=== PATIENT | female | born 1945 | race Caucasian/White ===

== ENCOUNTER 2020-10-16 07:06 | Emergency (ER) | payer MEDICARE, SELFPAY ==
[2020-10-16 07:10] VITALS: BP 127/67; BP 135/68; PULSE 72; PULSE 80; RESP 15; TEMP 36.6; O2SAT 93; O2SAT 97; BMI 33.8
--- NOTE | 2020-10-16 07:13 | ECG_ITS ---
Test Reason : DIZZY Blood Pressure : / mmHG Vent. Rate : 073 BPM Atrial Rate : 073 BPM P-R Int : 190 ms QRS Dur : 090 ms QT Int : 390 ms P-R-T Axes : 070 -33 019 degrees QTc Int : 429 ms Normal sinus rhythm Left axis deviation Abnormal ECG When compared with ECG of 25-NOV-2003 10:55, No significant change was found Referred By: Day Alexander Electronically Signed By:Doni Easton
--- NOTE | 2020-10-16 07:13 | ED.SYNCOPE ---
HPI - Syncope General Chief Complaint: Syncope Stated Complaint: syncope Time Seen by Provider: 10/16/20 07:13 Source: patient and EMS Mode of arrival: EMS Limitations: no limitations History of Present Illness complaint: other (stood up felt dizzy had syncopal event on her bed) Onset (ago): minute(s) (just [employer]) -: second(s) Prodromal symptoms: lightheaded Context: getting out of bed and standing up Injuries sustained associated with event: none Current symptoms: other (body aches malaise anorexia as she has had for 3 days prior to event) Treatments prior to arrival: none Related Data Home Medications Medication Instructions Recorded Confirmed antiarthritic combination no.2 900 mg PO 08/15/20 mg tablet calcium carbonate 600 mg calcium 600 mg PO DAILY 08/15/20 (1,500 mg) tablet cholecalciferol (vitamin D3) 25 25 mcg PO DAILY 08/15/20 mcg (1,000 unit) capsule fluticasone propionate 50 INTRANASAL 08/15/20 mcg/actuation nasal spray,suspension omega-3 fatty acids 1,000 mg 1,000 mg PO DAILY 08/15/20 capsule pravastatin 40 mg tablet 40 mg PO DAILY 08/15/20 Allergies Allergy/AdvReac Type Severity Reaction Status Date / Time No Known Allergies Allergy Verified 08/15/20 08:27 Review of Systems Review of Systems: Constitutional : No Fever, pos Chills ENT/Mouth : No sore throat, No Rhinorrhea, No Swallowing Difficulty Eyes: No Eye Pain, No Swelling, No Redness Cardiovascular : No Chest Pain, no SOB, No Orthopnea, no Edema Respiratory : No Cough, No Sputum, No Wheezing, no dyspnea Gastrointestinal : No Nausea, No Vomiting, No Diarrhea, No abdominal Pain, No Hematochezia, No Melena Genitourinary : No Dysuria, No Urinary Frequency, No Hematuria Musculoskeletal : pos joint pain, pos Myalgias Skin : No Skin Lesions, No rash Neuro : No Weakness, No Numbness, pos Dizziness, No Headache Psych : No Anxiety/Panic, No Depression All other systems reviewed and are negative [facility] Past Medical History Attestation statement: The following information was validated with the patient. Medical History Hyperlipidemia Menopause Obesity Osteoarthritis Osteopenia of both hips Tubular adenoma of colon Urinary incontinence in female Surgical History History of cataract surgery Family History Family History Father Unknown family medical history Mother Unknown family medical history Daughter No problems noted. Son No problems noted. Social History Social History Alcohol intake: never Smoking Status: Never smoker Advance Directives: No Advance Directives Information Provided: No Physical Exam Vital Signs: Vital Signs: Last Vital Signs Temp 98 F 10/16/20 07:10 Pulse 77 10/16/20 10:45 Resp 17 10/16/20 10:45 BP 132/65 10/16/20 10:45 Pulse Ox 96 10/16/20 10:58 Body Mass Index 33.8 Appearance: Alert. Oriented X3. No acute distress. Eyes: Pupils equal, round and reactive to light. ENT: Pharynx normal. Neck: Normal inspection. Neck supple. CVS: Normal heart rate and rhythm. Pulses normal. Respiratory: No respiratory distress. Breath sounds normal. Abdomen: Soft and non-tender. Skin: Skin warm and dry. Normal skin color. Normal skin turgor. Extremities: No lower extremity edema. No calf ttp Neuro: Oriented X 3. No motor deficit. No sensory deficit. Course Course Course Narrative: ambulation trial 95% on RA was able to walk to the bathroom + ortho VS 130 to 100 will gently given another 500cc over an hour and reassess, no CP/SOB, 96% on walking repeat BP improved after fluids, able to ambulate without issue no CP/SOB to suggest PE - stable for DC has steady gait pateint requesting lunch and states she is hungry MDM - Syncope MDM Narrative Medical decision making narrative: 75 yo female with HPL c/o malaisea, myalgia, anorexia x 3 days - spent most of the time in bed went to get up today had dizziness laid in her bed and had a syncopal event, no trauma, no preceding CP/SOB no GIB symptoms, at this time will need labs, IVF gently, CXR, UA and COVID swab, I do not suspect ACS/PE given lack of CP/SOB Lab Data Result diagrams: 10/16/20 08:15 10/16/20 08:15 Labs: Lab Results 10/16/20 10/16/20 10/16/20 Range/Units 08:15 08:15 08:15 WBC 3.7 L (4.8-10.8) X10*3/uL RBC 5.01 (4.20-5.50) X10*6/uL Hgb 16.2 H (12.0-16.0) g/dl Hct 47.0 (37-47) % MCV 93.8 (80-98) fL MCH 32.3 (27.0-33.0) pg MCHC 34.5 (31.0-35.0) g/dl RDW 11.9 (11.0-16.0) % Plt Count 124 L (160-400) X10*3/uL MPV 9.8 (9.4-12.3) fL Immature Gran % (Auto) 0.3 (0.0-0.4) % Neut % (Auto) 71.8 (45-73) % Lymph % (Auto) 17.5 L (20-40) % [place] % (Auto) 10.4 (2-11) % Eos % (Auto) 0.0 (0-4) % Baso % (Auto) 0.0 (0-2) % Lymph # (Auto) 0.6 L (1.2-4.9) X10*3/uL [place] # (Auto) 0.4 (0.1-1.2) X10*3/uL Eos # (Auto) 0.0 (0.0-0.4) X10*3/uL Baso # (Auto) 0.0 (0.0-0.2) X10*3/uL Abs Immat Gran (auto) 0.01 (0.00-0.03) X10*3/uL Absolute Neuts (auto) 2.6 (2.0-8.3) X10*3/uL Absolute Nucleated RBC 0.000 (0.0-0.012) X10*3/uL Nucleated RBC % (auto) 0.0 (0.0-0.2) /100WBC Smear Tech's Comments VERIFIED Hold Blue Top SEE NOTE Sodium 141 (135-145) mmol/L Potassium 3.9 (3.3-5.1) mmol/l Chloride 103 (96-108) mmol/L Carbon Dioxide 28 (22-29) mmol/L Anion Gap 14 (12-20) BUN 11 (9-16) mg/dL Creatinine 0.87 (0.5-1.4) mg/dL Estim Creat Clear Calc 55.3 Estimated GFR > 60 Random Glucose 106 (60-115) mg/dL Lactic Acid (0.5-2.0) mmol/L Calcium 8.3 L (8.4-10.2) mg/dL Magnesium (1.6-2.6) mg/dL Total Bilirubin (0.0-1.0) mg/dL Direct Bilirubin (0.0-0.5) mg/dL AST (5-31) U/L ALT (0-31) U/L Alkaline Phosphatase (39-117) U/L Lactate Dehydrogenase 233 H (122-220) U/L Total Creatine Kinase 78 (26-140) U/L Troponin I High Sens (<3.5-17.0) ng/L Total Protein (6.5-8.0) g/dL Albumin (3.5-5.0) g/dL Lipase (8-78) U/L Urine Color Urine Appearance Urine pH (5.0-8.0) Ur Specific [place] (1.005-1.025) Urine Protein (NEG-TRACE) MG/DL Urine Glucose (UA) (NEG) MG/DL Urine Ketones (NEG) MG/DL Urine Blood (NEG) Urine Nitrite (NEG) Ur Leukocyte Esterase (NEG) Coronavirus (PCR) (Negative) Influenza Type A (PCR) (Negative) Influenza Type B (PCR) (Negative) RSV RNA Qual (PCR) (Negative) 10/16/20 10/16/20 10/16/20 Range/Units 08:15 08:15 08:17 WBC (4.8-10.8) X10*3/uL RBC (4.20-5.50) X10*6/uL Hgb (12.0-16.0) g/dl Hct (37-47) % MCV (80-98) fL MCH (27.0-33.0) pg MCHC (31.0-35.0) g/dl RDW (11.0-16.0) % Plt Count (160-400) X10*3/uL MPV (9.4-12.3) fL Immature Gran % (Auto) (0.0-0.4) % Neut % (Auto) (45-73) % Lymph % (Auto) (20-40) % [place] % (Auto) (2-11) % Eos % (Auto) (0-4) % Baso % (Auto) (0-2) % Lymph # (Auto) (1.2-4.9) X10*3/uL [place] # (Auto) (0.1-1.2) X10*3/uL Eos # (Auto) (0.0-0.4) X10*3/uL Baso # (Auto) (0.0-0.2) X10*3/uL Abs Immat Gran (auto) (0.00-0.03) X10*3/uL Absolute Neuts (auto) (2.0-8.3) X10*3/uL Absolute Nucleated RBC (0.0-0.012) X10*3/uL Nucleated RBC % (auto) (0.0-0.2) /100WBC Smear Tech's Comments Hold Blue Top Sodium (135-145) mmol/L Potassium (3.3-5.1) mmol/l Chloride (96-108) mmol/L Carbon Dioxide (22-29) mmol/L Anion Gap (12-20) BUN (9-16) mg/dL Creatinine (0.5-1.4) mg/dL Estim Creat Clear Calc Estimated GFR Random Glucose (60-115) mg/dL Lactic Acid 0.9 (0.5-2.0) mmol/L Calcium 8.3 L (8.4-10.2) mg/dL Magnesium 2.1 (1.6-2.6) mg/dL Total Bilirubin 0.3 (0.0-1.0) mg/dL Direct Bilirubin 0.2 (0.0-0.5) mg/dL AST 27 (5-31) U/L ALT 27 (0-31) U/L Alkaline Phosphatase 72 (39-117) U/L Lactate Dehydrogenase (122-220) U/L Total Creatine Kinase (26-140) U/L Troponin I High Sens 3.9 (<3.5-17.0) ng/L Total Protein 6.4 L (6.5-8.0) g/dL Albumin 3.9 (3.5-5.0) g/dL Lipase 28 (8-78) U/L Urine Color Urine Appearance Urine pH (5.0-8.0) Ur Specific [place] (1.005-1.025) Urine Protein (NEG-TRACE) MG/DL Urine Glucose (UA) (NEG) MG/DL Urine Ketones (NEG) MG/DL Urine Blood (NEG) Urine Nitrite (NEG) Ur Leukocyte Esterase (NEG) Coronavirus (PCR) (Negative) Influenza Type A (PCR) (Negative) Influenza Type B (PCR) (Negative) RSV RNA Qual (PCR) (Negative) 10/16/20 10/16/20 Range/Units 09:15 11:22 WBC (4.8-10.8) X10*3/uL RBC (4.20-5.50) X10*6/uL Hgb (12.0-16.0) g/dl Hct (37-47) % MCV (80-98) fL MCH (27.0-33.0) pg MCHC (31.0-35.0) g/dl RDW (11.0-16.0) % Plt Count (160-400) X10*3/uL MPV (9.4-12.3) fL Immature Gran % (Auto) (0.0-0.4) % Neut % (Auto) (45-73) % Lymph % (Auto) (20-40) % [place] % (Auto) (2-11) % Eos % (Auto) (0-4) % Baso % (Auto) (0-2) % Lymph # (Auto) (1.2-4.9) X10*3/uL [place] # (Auto) (0.1-1.2) X10*3/uL Eos # (Auto) (0.0-0.4) X10*3/uL Baso # (Auto) (0.0-0.2) X10*3/uL Abs Immat Gran (auto) (0.00-0.03) X10*3/uL Absolute Neuts (auto) (2.0-8.3) X10*3/uL Absolute Nucleated RBC (0.0-0.012) X10*3/uL Nucleated RBC % (auto) (0.0-0.2) /100WBC Smear Tech's Comments Hold Blue Top Sodium (135-145) mmol/L Potassium (3.3-5.1) mmol/l Chloride (96-108) mmol/L Carbon Dioxide (22-29) mmol/L Anion Gap (12-20) BUN (9-16) mg/dL Creatinine (0.5-1.4) mg/dL Estim Creat Clear Calc Estimated GFR Random Glucose (60-115) mg/dL Lactic Acid (0.5-2.0) mmol/L Calcium (8.4-10.2) mg/dL Magnesium (1.6-2.6) mg/dL Total Bilirubin (0.0-1.0) mg/dL Direct Bilirubin (0.0-0.5) mg/dL AST (5-31) U/L ALT (0-31) U/L Alkaline Phosphatase (39-117) U/L Lactate Dehydrogenase (122-220) U/L Total Creatine Kinase (26-140) U/L Troponin I High Sens (<3.5-17.0) ng/L Total Protein (6.5-8.0) g/dL Albumin (3.5-5.0) g/dL Lipase (8-78) U/L Urine Color YELLOW Urine Appearance CLEAR Urine pH 6.0 (5.0-8.0) Ur Specific [place] 1.020 (1.005-1.025) Urine Protein NEG (NEG-TRACE) MG/DL Urine Glucose (UA) NEG (NEG) MG/DL Urine Ketones 15 (NEG) MG/DL Urine Blood NEG (NEG) Urine Nitrite NEG (NEG) Ur Leukocyte Esterase NEG (NEG) Coronavirus (PCR) POSITIVE A (Negative) Influenza Type A (PCR) NEGATIVE (Negative) Influenza Type B (PCR) NEGATIVE (Negative) RSV RNA Qual (PCR) NEGATIVE (Negative) ECG Data Attestation: I personally reviewed and interpreted this ECG as follows: ECG interpretation date: 10/16/20 ECG interpretation time: 07:29 Interpretation: Rate: 73 Rhythm: NSR [place]: left Normal P waves. Normal G[place]VAR[place]. Normal QRS complex. ST T wave : normal no JOSE qTC: normal prior studies: no acute ischemia The study has been interpreted contemporaneously by me. . Discharge Plan Discharge Clinical Impression: Syncope due to orthostatic hypotension, COVID-19 Patient Disposition: Home, Self-Care Instructions: Hypotension (ED), COVID-19 (Coronavirus Disease 2019) (ED) Additional Instructions: return to ED for any worsening symptoms or concerns you have to eat and drink fluids - take tylenol and motrin as needed for fevers and body aches Prescriptions: No Action pravastatin 40 mg tablet 40 mg PO DAILY RF: 0 fluticasone propionate 50 mcg/actuation spray,suspension intranasal RF: 0 omega-3 fatty acids [Fish Oil Concentrate] 1,000 mg capsule 1,000 mg PO DAILY RF: 0 glucosamine-chondroitin 900 mg tablet PO RF: 0 calcium carbonate [Calcium 600] 600 mg calcium (1,500 mg) tablet 600 mg PO DAILY RF: 0 cholecalciferol (vitamin D3) 25 mcg (1,000 unit) capsule 25 mcg PO DAILY RF: 0
--- NOTE | 2020-10-16 07:14 | XR_ITS ---
EXAMINATION: XR CHEST CLINICAL INFORMATION: Weakness COMPARISON: None TECHNIQUE: Frontal view of the chest was obtained. FINDINGS: Rotated positioning. There is prominence of the cardiac and mediastinal silhouette, likely related to positioning. Patchy airspace opacities in bilateral lower lungs, from atelectasis or infiltrate. Possible trace left pleural effusion. No pulmonary edema or pneumothorax. No acute osseous abnormality. XR/XR chest 1V IMPRESSION: Bibasilar airspace opacities which could present atelectasis or infiltrate. Possible trace left pleural effusion.
[2020-10-16 08:26] LABS: Hemoglobin 16.2 g/dl (12.0-16.0); Imm Gran Abs Auto 0.01 X10*3/uL (0.00-0.03); Imm Gran Pct Auto 0.3 % (0.0-0.4); Lymphocytes Absolute Auto 0.6 X10*3/uL (1.2-4.9); Lymphocytes Percent Auto 17.5 % (20-40); MANUAL DIFF FLAG SCAN; Mean Corpuscular HGB Conc 34.5 g/dl (31.0-35.0); Mean Corpuscular Hemoglobin 32.3 pg (27.0-33.0); Mean Corpuscular Volume 93.8 fL (80-98); Mean Platelet Volume 9.8 fL (9.4-12.3); Monocytes Absolute Auto 0.4 X10*3/uL (0.1-1.2); Monocytes Percent Auto 10.4 % (2-11); Neutrophils Absolute Auto 2.6 X10*3/uL (2.0-8.3); Neutrophils Percent Auto 71.8 % (45-73); Platelet Count 124 X10*3/uL (160-400); Red Blood Count 5.01 X10*6/uL (4.20-5.50); Red Cell Distribution Width 11.9 % (11.0-16.0); SCAN SMEAR FLAG 1; White Blood Count 3.7 X10*3/uL (4.8-10.8)
--- NOTE | 2020-10-16 08:31 | CT_ITS ---
EXAMINATION: CT CHEST WITHOUT CONTRAST CLINICAL INFORMATION: Syncope, malaise, evaluate for fevers. COMPARISON: None TECHNIQUE: Multidetector volumetric CT imaging of the chest was done. Axial MIP volume rendering provided. Sagittal and coronal reformatted images were obtained. This CT examination was performed using dose optimization techniques as appropriate, variously including the following: *Automated exposure control *Adjustment of mA and/or kV according to patient size (this includes techniques or standardized protocols for targeted exams where dose is matched to indication/reason for exam; i.e. extremities or head) *Use of iterative reconstruction technique DLP: 270 mGy-cm FINDINGS: LUNGS: 2 mm calcified nodule right upper lobe image 174 series 5. Airspace opacity in the medial aspect of the right upper lobe, with peribronchial thickening. Patchy airspace opacity in the peripheral aspect of right upper lobe, for example image [id number] series 5. Linear and patchy airspace opacities in the bilateral lower lobes. There are some peripheral subpleural ground-glass opacities in bilateral lower lobes. Airspace and ground-glass opacities in the inferior lingula, left lower lobe. Multiple foci of ground-glass opacities in the left upper lobe. MEDIASTINUM: No lymphadenopathy seen in the mediastinum or marco. Normal caliber aorta. Normal heart size. No pericardial effusion. PLEURA: There is no pleural effusion. No pleural mass or thickening. AXILLA: No lymphadenopathy. UPPER ABDOMEN: Unremarkable. OSSEOUS STRUCTURES: Thoracic spine degenerative changes. No acute or suspicious osseous abnormality. CT/CT chest wo con IMPRESSION: Multifocal airspace and ground-glass opacities in bilateral hemithoraces, as detailed above. These findings may reflect infectious or inflammatory process. Recommend followup imaging posttreatment to ensure resolution.
[2020-10-16 08:43] LABS: Lactic Acid 0.9 mmol/L (0.5-2.0)
[2020-10-16] MEDS: 0.9 % Sodium Chloride 500 ML IV ×2 (08:48→14:05)
[2020-10-16] MEDS: ondansetron HCL 4 MG/2 ML VIAL IVPUSH (08:48)
[2020-10-16 08:50] LABS: Anion Gap 14 (12-20); Blood Urea Nitrogen 11 mg/dL (9-16); Calcium 8.3 mg/dL (8.4-10.2); Carbon Dioxide 28 mmol/L (22-29); Chloride 103 mmol/L (96-108); Creatinine Clr Calc Pharmacy 55.3; Estimated Glomerular Filt Rate > 60; Glucose Random 106 mg/dL (60-115); Lactate Dehydrogenase 233 U/L (122-220); Potassium 3.9 mmol/l (3.3-5.1); Sodium 141 mmol/L (135-145)
[2020-10-16 08:50] LABS: Alanine Aminotransferase 27 U/L (0-31); Albumin Level 3.9 g/dL (3.5-5.0); Alkaline Phosphatase 72 U/L (39-117); Aspartate Amino Transferase 27 U/L (5-31); Bilirubin Direct 0.2 mg/dL (0.0-0.5); Bilirubin Total 0.3 mg/dL (0.0-1.0); Calcium 8.3 mg/dL (8.4-10.2); Lipase 28 U/L (8-78); Magnesium 2.1 mg/dL (1.6-2.6); Total Protein 6.4 g/dL (6.5-8.0)
[2020-10-16 09:00] LABS: SLIDE REVIEW VERIFIED
[2020-10-16 09:16] VITALS: BP 123/68; PULSE 68; RESP 16; O2SAT 93
[2020-10-16 09:35] LABS: Troponin-I High Sensitivity 3.9 ng/L (<3.5-17.0)
[2020-10-16 10:45] VITALS: BP 132/65; PULSE 77; RESP 17; O2SAT 933
[2020-10-16 10:50] LABS: Influenza A PCR NEGATIVE (Negative); Influenza B PCR NEGATIVE (Negative); Resp Syncy Virus RNA Qual PCR NEGATIVE (Negative); SARS COV2 PCR INHOUSE POSITIVE (Negative)
[2020-10-16 10:58] VITALS: O2SAT 96
[2020-10-16 11:46] LABS: Glucose Urine UA NEG (NEG); Leukocyte Esterase Urine NEG (NEG); Nitrite Urine NEG (NEG); Urine Blood NEG (NEG); Urine Ketones 15 MG/DL (NEG); Urine Protein NEG (NEG-TRACE)
[2020-10-16 11:51] LABS: Appearance Urine CLEAR; Color Urine YELLOW
[2020-10-16] MEDS: Acetaminophen 325 MG TABLET 650 MG PO (14:04)
[2020-10-16 14:06] VITALS: BP 111/75; PULSE 77; RESP 16; O2SAT 95
== END 2020-10-16 14:42 | disposition home or self-care (01) ==
PROVIDERS: Emergency Provider Emergency Medicine; PCP Internal Medicine
DX: U07.1 COVID-19 (principal); I95.1 Orthostatic hypotension
CPT/HCPCS: 0241U; 36415; 71045; 71250; 80048; 80076; 81003; 82310; 82550; 83605; 83615; 83690; 83735; 84484; 85025; 93005; 96361; 96374; 99284; J2405

== ENCOUNTER 2020-10-23 07:37 | Emergency (ER) | payer MEDICARE, SELFPAY ==
[2020-10-23 07:44] VITALS: BP 119/41; PULSE 81; RESP 16; TEMP 36.9; O2SAT 96; BMI 33.8
--- NOTE | 2020-10-23 07:53 | ECG_ITS ---
Test Reason : HEADACHE,WEAKNESS Blood Pressure : / mmHG Vent. Rate : 078 BPM Atrial Rate : 078 BPM P-R Int : 184 ms QRS Dur : 084 ms QT Int : 374 ms P-R-T Axes : 037 -07 019 degrees QTc Int : 426 ms Normal sinus rhythm Cannot rule out Anterior infarct , age undetermined Abnormal ECG When compared with ECG of 16-OCT-2020 07:25, No significant change was found Referred By: Day Alexander Electronically Signed By:ÓSCAR COTTRELL MD
--- NOTE | 2020-10-23 07:53 | XR_ITS ---
EXAMINATION: XR CHEST CLINICAL INFORMATION: Weakness. Covid positive. COMPARISON: October 16, 2020 TECHNIQUE: AP portable view of the chest was obtained. FINDINGS: There are small patchy regions of disease seen within the left upper lobe and right upper and lower lung. No pneumothorax or significant pleural effusion. Heart and upper limits of normal in size. No evidence of pulmonary edema. The regions of disease are more prominent than on study of October 16, 2020. There is elevation of the left hemidiaphragm. XR/XR chest 1V IMPRESSION: Progression in regions of patchy disease bilaterally since previous examination.
--- NOTE | 2020-10-23 07:54 | ED_ITS ---
HPI - Weakness General Chief complaint: Headache Stated complaint: HEADACHE COVID Time Seen by Provider: 10/23/20 07:47 Source: patient, EMS and old records reviewed Mode of arrival: EMS Limitations: no limitations History of Present Illness HPI Narrative: seen here on 10/16 for syncope found to be orthostatic likely due to decreased PO from COVID - was not hypoxic, labs stable, responded to hydration - since being at home has poor PO intake due to lack of taste and smell, c/o headache x 3 weeks which is her main complaint, feels dizzy and weak, her is hospitalized with COVID as well MD Complaint: generalized weakness and lack of energy Onset (ago): week(s) Duration: constant Location: generalized Migration: none Severity: severe Relieving factors: none Exacerbating factors: none Context: recent illness (dx with COVID on 10/16) Associated symptoms: headaches, loss of appetite and myalgias Related Data Home Medications Medication Instructions Recorded Confirmed antiarthritic combination no.2 900 mg PO 08/15/20 mg tablet calcium carbonate 600 mg calcium 600 mg PO DAILY 08/15/20 (1,500 mg) tablet cholecalciferol (vitamin D3) 25 25 mcg PO DAILY 08/15/20 mcg (1,000 unit) capsule fluticasone propionate 50 INTRANASAL 08/15/20 mcg/actuation nasal spray,suspension omega-3 fatty acids 1,000 mg 1,000 mg PO DAILY 08/15/20 capsule pravastatin 40 mg tablet 40 mg PO DAILY 08/15/20 Previous Rx's Medication Instructions Recorded azithromycin See Rx Instructions .ROUTE 10/23/20 .COMPLEX #6 tab hydrocodone-homatropine 5 ml PO Q6H PRN #60 ml 10/23/20 Allergies Allergy/AdvReac Type Severity Reaction Status Date / Time No Known Allergies Allergy Verified 08/15/20 08:27 Review of Systems Review of Systems: Constitutional : No Fever, No Chills, pos Fatigue ENT/Mouth : No sore throat, No Rhinorrhea Eyes: No Eye Pain, No Swelling, No Redness Cardiovascular : No Chest Pain, No SOB, pos Dyspnea on Exertion Respiratory : No Cough, No Sputum Gastrointestinal : No Nausea, No Vomiting, No Diarrhea, No abdominal Pain Genitourinary : No Dysuria, No Urinary Frequency, No Hematuria, Musculoskeletal : No joint pain, pos Myalgias, No Joint Swelling Skin : No Skin Lesions, No rash Neuro : pos Weakness, No Numbness, No Dizziness, positive Headache Psych : No Anxiety/Panic, No Depression Heme/Lymph: No Bruising, No Bleeding,No Lymphadenopathy Endocrine : No Polyuria, No Polydipsia All other systems reviewed and are negative [facility] Past Medical History Attestation statement: The following information was validated with the patient. Source: old records reviewed Medical History Hyperlipidemia Menopause Obesity Osteoarthritis Osteopenia of both hips Tubular adenoma of colon Urinary incontinence in female Surgical History History of cataract surgery Family History Family History Father Unknown family medical history Mother Unknown family medical history Daughter No problems noted. Son No problems noted. Social History Social History Alcohol intake: never Smoking Status: Never smoker Advance Directives: No Advance Directives Information Provided: No Physical Exam Vital Signs: Vital Signs: Last Vital Signs Temp 98.5 F 10/23/20 07:44 Pulse 74 10/23/20 09:47 Resp 16 10/23/20 07:44 BP 117/74 10/23/20 09:47 Pulse Ox 95 10/23/20 09:42 Body Mass Index 33.8 Appearance: Alert. Oriented X3. No acute distress. Eyes: Pupils equal, round and reactive to light. ENT: Pharynx mild dry MMM Neck: Normal inspection. Neck supple. no meningeal signs CVS: Normal heart rate and rhythm. Pulses normal. Respiratory: No respiratory distress. Breath sounds normal. Abdomen: Soft and non-tender. Skin: Skin warm and dry. Normal skin color. Normal skin turgor. Extremities: No lower extremity edema. No calf ttp Neuro: Oriented X 3. No motor deficit. No sensory deficit. Course Course Course Narrative: no EKG changes and no CP/SOB 6.6 trop not in ischemic range last was 3.9 doubt ACS, CT head negative, negative ortho VS, no dehydration, no admission needs at this time, does not require O2 MDM - Weakness MDM Narrative Medical decision making narrative: 75 yo female with known COVID 19 dx 10/16 here with weakness, lack of appetite due to loss of taste and smell - c/o headache x 3 weeks no AC therapy, no meningeal signs will obtain labs, CT head for mass, IV morphine for pain, no hypoxia or resp distress, dispo per results and findings Lab Data Result diagrams: 10/23/20 08:43 10/23/20 08:43 Labs: Lab Results 10/23/20 10/23/20 10/23/20 Range/Units 08:43 08:43 08:43 WBC 3.8 L (4.8-10.8) X10*3/uL RBC 5.27 (4.20-5.50) X10*6/uL Hgb 16.6 H (12.0-16.0) g/dl Hct 48.5 H (37-47) % MCV 92.0 (80-98) fL MCH 31.5 (27.0-33.0) pg MCHC 34.2 (31.0-35.0) g/dl RDW 12.0 (11.0-16.0) % Plt Count 190 D (160-400) X10*3/uL MPV 9.9 (9.4-12.3) fL Immature Gran % (Auto) 0.5 H (0.0-0.4) % Neut % (Auto) 73.9 H (45-73) % Lymph % (Auto) 17.2 L (20-40) % [place] % (Auto) 8.1 (2-11) % Eos % (Auto) 0.0 (0-4) % Baso % (Auto) 0.3 (0-2) % Lymph # (Auto) 0.7 L (1.2-4.9) X10*3/uL [place] # (Auto) 0.3 (0.1-1.2) X10*3/uL Eos # (Auto) 0.0 (0.0-0.4) X10*3/uL Baso # (Auto) 0.0 (0.0-0.2) X10*3/uL Abs Immat Gran (auto) 0.02 (0.00-0.03) X10*3/uL Absolute Neuts (auto) 2.8 (2.0-8.3) X10*3/uL Absolute Nucleated RBC 0.000 (0.0-0.012) X10*3/uL Nucleated RBC % (auto) 0.0 (0.0-0.2) /100WBC Smear Tech's Comments VERIFIED PT 13.1 H (10.8-13.0) SEC INR 1.1 (0.9-1.1) APTT 27.1 (24.1-38.0) SEC Sodium 139 (135-145) mmol/L Potassium 3.8 (3.3-5.1) mmol/l Chloride 103 (96-108) mmol/L Carbon Dioxide 28 (22-29) mmol/L Anion Gap 12 (12-20) BUN 11 (9-16) mg/dL Creatinine 0.76 (0.5-1.4) mg/dL Estim Creat Clear Calc 63.2 Estimated GFR > 60 Random Glucose 106 (60-115) mg/dL Lactic Acid (0.5-2.0) mmol/L Calcium 8.5 (8.4-10.2) mg/dL Magnesium (1.6-2.6) mg/dL Total Bilirubin (0.0-1.0) mg/dL Direct Bilirubin (0.0-0.5) mg/dL AST (5-31) U/L ALT (0-31) U/L Alkaline Phosphatase (39-117) U/L Lactate Dehydrogenase (122-220) U/L Total Creatine Kinase 49 D (26-140) U/L Troponin I High Sens (<3.5-17.0) ng/L Total Protein (6.5-8.0) g/dL Albumin (3.5-5.0) g/dL Lipase (8-78) U/L Procalcitonin ng/mL 10/23/20 10/23/20 10/23/20 Range/Units 08:43 08:43 08:43 WBC (4.8-10.8) X10*3/uL RBC (4.20-5.50) X10*6/uL Hgb (12.0-16.0) g/dl Hct (37-47) % MCV (80-98) fL MCH (27.0-33.0) pg MCHC (31.0-35.0) g/dl RDW (11.0-16.0) % Plt Count (160-400) X10*3/uL MPV (9.4-12.3) fL Immature Gran % (Auto) (0.0-0.4) % Neut % (Auto) (45-73) % Lymph % (Auto) (20-40) % [place] % (Auto) (2-11) % Eos % (Auto) (0-4) % Baso % (Auto) (0-2) % Lymph # (Auto) (1.2-4.9) X10*3/uL [place] # (Auto) (0.1-1.2) X10*3/uL Eos # (Auto) (0.0-0.4) X10*3/uL Baso # (Auto) (0.0-0.2) X10*3/uL Abs Immat Gran (auto) (0.00-0.03) X10*3/uL Absolute Neuts (auto) (2.0-8.3) X10*3/uL Absolute Nucleated RBC (0.0-0.012) X10*3/uL Nucleated RBC % (auto) (0.0-0.2) /100WBC Smear Tech's Comments PT (10.8-13.0) SEC INR (0.9-1.1) APTT (24.1-38.0) SEC Sodium (135-145) mmol/L Potassium (3.3-5.1) mmol/l Chloride (96-108) mmol/L Carbon Dioxide (22-29) mmol/L Anion Gap (12-20) BUN (9-16) mg/dL Creatinine (0.5-1.4) mg/dL Estim Creat Clear Calc Estimated GFR Random Glucose (60-115) mg/dL Lactic Acid 1.0 (0.5-2.0) mmol/L Calcium (8.4-10.2) mg/dL Magnesium 2.1 (1.6-2.6) mg/dL Total Bilirubin 0.6 (0.0-1.0) mg/dL Direct Bilirubin 0.3 (0.0-0.5) mg/dL AST 39 H D (5-31) U/L ALT 38 H (0-31) U/L Alkaline Phosphatase 70 (39-117) U/L Lactate Dehydrogenase 377 H (122-220) U/L Total Creatine Kinase (26-140) U/L Troponin I High Sens 6.6 D (<3.5-17.0) ng/L Total Protein 6.6 (6.5-8.0) g/dL Albumin 3.9 (3.5-5.0) g/dL Lipase 39 (8-78) U/L Procalcitonin ng/mL 10/23/20 Range/Units 08:43 WBC (4.8-10.8) X10*3/uL RBC (4.20-5.50) X10*6/uL Hgb (12.0-16.0) g/dl Hct (37-47) % MCV (80-98) fL MCH (27.0-33.0) pg MCHC (31.0-35.0) g/dl RDW (11.0-16.0) % Plt Count (160-400) X10*3/uL MPV (9.4-12.3) fL Immature Gran % (Auto) (0.0-0.4) % Neut % (Auto) (45-73) % Lymph % (Auto) (20-40) % [place] % (Auto) (2-11) % Eos % (Auto) (0-4) % Baso % (Auto) (0-2) % Lymph # (Auto) (1.2-4.9) X10*3/uL [place] # (Auto) (0.1-1.2) X10*3/uL Eos # (Auto) (0.0-0.4) X10*3/uL Baso # (Auto) (0.0-0.2) X10*3/uL Abs Immat Gran (auto) (0.00-0.03) X10*3/uL Absolute Neuts (auto) (2.0-8.3) X10*3/uL Absolute Nucleated RBC (0.0-0.012) X10*3/uL Nucleated RBC % (auto) (0.0-0.2) /100WBC Smear Tech's Comments PT (10.8-13.0) SEC INR (0.9-1.1) APTT (24.1-38.0) SEC Sodium (135-145) mmol/L Potassium (3.3-5.1) mmol/l Chloride (96-108) mmol/L Carbon Dioxide (22-29) mmol/L Anion Gap (12-20) BUN (9-16) mg/dL Creatinine (0.5-1.4) mg/dL Estim Creat Clear Calc Estimated GFR Random Glucose (60-115) mg/dL Lactic Acid (0.5-2.0) mmol/L Calcium (8.4-10.2) mg/dL Magnesium (1.6-2.6) mg/dL Total Bilirubin (0.0-1.0) mg/dL Direct Bilirubin (0.0-0.5) mg/dL AST (5-31) U/L ALT (0-31) U/L Alkaline Phosphatase (39-117) U/L Lactate Dehydrogenase (122-220) U/L Total Creatine Kinase (26-140) U/L Troponin I High Sens (<3.5-17.0) ng/L Total Protein (6.5-8.0) g/dL Albumin (3.5-5.0) g/dL Lipase (8-78) U/L Procalcitonin 0.09 ng/mL ECG Data Attestation: I personally reviewed and interpreted this ECG as follows: ECG interpretation date: 10/23/20 ECG interpretation time: 08:14 Interpretation: Rate: 78 Rhythm: NSR [place]: left Normal P waves. Normal GUEVARA. Normal QRS complex. poor R wave progression ST T wave : normal no JOSE qTC: normal prior studies: no acute ischemia The study has been interpreted contemporaneously by me. . Discharge Plan Discharge Clinical Impression: COVID-19, Headache Patient Disposition: Home, Self-Care Instructions: Acute Headache (ED), COVID-19 (Coronavirus Disease 2019) (ED) Additional Instructions: return to ED for any worsening symptoms or concerns, your kidney function is fine you are not dehydrated. CT scan incidental findings which are not causing your symptoms but they do require you to follow up with your PCP meningioma - benign small 1.5cm mass R parotid gland - right cheek 2.3cm will need outpatient CT neck with your PCP that has contrast Prescriptions: New azithromycin 500 mg tablet See Rx Instructions .ROUTE .COMPLEX Qty: 6 RF: 0 hydrocodone-homatropine 5-1.5 mg/5 mL (5 mL) syrup 5 ml PO Q6H PRN (Reason: cough) Qty: 60 RF: 0 No Action pravastatin 40 mg tablet 40 mg PO DAILY RF: 0 fluticasone propionate 50 mcg/actuation spray,suspension intranasal RF: 0 omega-3 fatty acids [Fish Oil Concentrate] 1,000 mg capsule 1,000 mg PO DAILY RF: 0 glucosamine-chondroitin 900 mg tablet PO RF: 0 calcium carbonate [Calcium 600] 600 mg calcium (1,500 mg) tablet 600 mg PO DAILY RF: 0 cholecalciferol (vitamin D3) 25 mcg (1,000 unit) capsule 25 mcg PO DAILY RF: 0 Referrals: Radha Melvin MD [Primary Care Provider] - 1 week (follow up CT scan findings)
--- NOTE | 2020-10-23 08:03 | CT_ITS ---
CT HEAD WITHOUT IV CONTRAST CLINICAL INFORMATION: Headaches. COMPARISON: None TECHNIQUE: Contiguous axial imaging was performed from the skull base to vertex without intravenous administration of contrast. This CT examination was performed using dose optimization techniques as appropriate, variously including the following: *Automated exposure control *Adjustment of mA and/or kV according to patient size (this includes techniques or standardized protocols for targeted exams where dose is matched to indication/reason for exam; i.e. extremities or head) *Use of iterative reconstruction technique FINDINGS: There is a 1.5 cm calcified extra-axial nodule along the anterior left parasagittal frontal convexity that is most compatible with a meningioma. There is a smaller partially calcified nodule along the left tentorial leaflet, also suggestive of a small meningioma. There is no intracranial hemorrhage, hydrocephalus, extra-axial surface collection, midline shift, or other herniation pattern. [place] to white matter differentiation is diffusely maintained without evidence of an evolved acute territorial infarct. The basilar cisterns are preserved. There is a partially imaged well marginated 2.3 cm mass within the posterior aspect of the right parotid gland that can be further assessed with a contrast-enhanced CT of the neck. CT/CT head/brain wo con IMPRESSION: - No acute intracranial abnormality. - There is a 1.5 cm partially calcified meningioma along the anterior left frontal parasagittal convexity. There is a smaller partially calcified nodule along the left tentorial leaflet, also suggestive of a small meningioma. - There is a partially imaged well marginated 2.3 cm mass within the posterior aspect of the right parotid gland that can be further assessed with a contrast-enhanced CT of the neck.
[2020-10-23] MEDS: 0.9 % Sodium Chloride 500 ML IV (08:41)
[2020-10-23] MEDS: ondansetron HCL 4 MG/2 ML VIAL IVPUSH (08:48)
[2020-10-23] MEDS: Morphine Sulfate 2 MG/ML CARTRIDGE IVPUSH (08:48)
[2020-10-23 08:54] LABS: Basophils Percent Auto 0.3 % (0-2); Hematocrit 48.5 % (37-47); Hemoglobin 16.6 g/dl (12.0-16.0); Imm Gran Abs Auto 0.02 X10*3/uL (0.00-0.03); Imm Gran Pct Auto 0.5 % (0.0-0.4); Lymphocytes Absolute Auto 0.7 X10*3/uL (1.2-4.9); Lymphocytes Percent Auto 17.2 % (20-40); Mean Corpuscular HGB Conc 34.2 g/dl (31.0-35.0); Mean Corpuscular Hemoglobin 31.5 pg (27.0-33.0); Mean Platelet Volume 9.9 fL (9.4-12.3); Monocytes Absolute Auto 0.3 X10*3/uL (0.1-1.2); Monocytes Percent Auto 8.1 % (2-11); Neutrophils Absolute Auto 2.8 X10*3/uL (2.0-8.3); Neutrophils Percent Auto 73.9 % (45-73); Platelet Count 190 X10*3/uL (160-400); Red Blood Count 5.27 X10*6/uL (4.20-5.50); SCAN SMEAR FLAG 1; White Blood Count 3.8 X10*3/uL (4.8-10.8)
[2020-10-23 08:57] LABS: INTERNATIONAL NORM RATIO 1.1 (0.9-1.1); Prothrombin Time 13.1 SEC (10.8-13.0)
[2020-10-23 09:00] LABS: Partial Thromboplastin Time 27.1 SEC (24.1-38.0)
[2020-10-23 09:13] LABS: Alanine Aminotransferase 38 U/L (0-31); Albumin Level 3.9 g/dL (3.5-5.0); Alkaline Phosphatase 70 U/L (39-117); Aspartate Amino Transferase 39 U/L (5-31); Bilirubin Direct 0.3 mg/dL (0.0-0.5); Bilirubin Total 0.6 mg/dL (0.0-1.0); Lactate Dehydrogenase 377 U/L (122-220); Lipase 39 U/L (8-78); Magnesium 2.1 mg/dL (1.6-2.6); Total Protein 6.6 g/dL (6.5-8.0)
[2020-10-23 09:14] LABS: Anion Gap 12 (12-20); Blood Urea Nitrogen 11 mg/dL (9-16); Calcium 8.5 mg/dL (8.4-10.2); Carbon Dioxide 28 mmol/L (22-29); Chloride 103 mmol/L (96-108); Creatinine Clr Calc Pharmacy 63.2; Estimated Glomerular Filt Rate > 60; Glucose Random 106 mg/dL (60-115); Potassium 3.8 mmol/l (3.3-5.1); Sodium 139 mmol/L (135-145)
[2020-10-23 09:20] LABS: MANUAL DIFF FLAG SCAN; Troponin-I High Sensitivity 6.6 ng/L (<3.5-17.0)
[2020-10-23 09:21] LABS: SLIDE REVIEW VERIFIED
[2020-10-23 09:32] LABS: Procalcitonin 0.09 ng/mL
[2020-10-23 09:42] VITALS: BP 120/75; PULSE 70; O2SAT 95
[2020-10-23 09:45] VITALS: BP 122/74; BP 126/79; PULSE 70; PULSE 80
[2020-10-23 09:47] VITALS: BP 117/74; PULSE 74
[2020-10-23 10:14] LABS: Glucose Urine UA NEG (NEG); Leukocyte Esterase Urine TRACE (NEG); Nitrite Urine NEG (NEG); Urine Blood NEG (NEG); Urine Ketones 15 MG/DL (NEG); Urine Protein TRACE MG/DL (NEG-TRACE)
[2020-10-23 10:15] LABS: Appearance Urine CLOUDY; Color Urine YELLOW
[2020-10-23 10:25] LABS: Bacteria Urine 2+ /LPF; RBC Urine 0 /HPF (0); Squamous Epithelial Cell Urine 3+ /LPF
[2020-10-23 10:26] LABS: Ferritin 2641 ng/mL (10-250)
[2020-10-23 10:26] LABS: Mucus Urine 2+ /LPF
[2020-10-23 12:27] VITALS: BP 126/49; PULSE 98; RESP 18; O2SAT 98
--- NOTE | 2020-10-23 12:27 | PC.NURSE ---
PULSE OXIMETRY PERFORMED, ABOUT 200 FEET. HR: 108, O2% 96. NO SUPPLEMENTAL O2
== END 2020-10-23 12:31 | disposition home or self-care (01) ==
PROVIDERS: Emergency Provider Emergency Medicine; PCP Internal Medicine
DX: U07.1 COVID-19 (principal); R51.9 Headache, unspecified
CPT/HCPCS: 36415; 70450; 71045; 80048; 80076; 81001; 82550; 82728; 83605; 83615; 83690; 83735; 84145; 84484; 85025; 85610; 85730; 87040; 87086; 93005; 96361; 96374; 96375; 99284; J2270; J2405

== ENCOUNTER 2020-11-21 09:15 | Outpatient (REF) | payer MEDICARE, SELFPAY ==
--- NOTE | 2020-11-21 | MM_ITS ---
EXAMINATION: MM SCREENING DIGITAL BREAST TOMOSYNTHESIS, BILATERAL CLINICAL INFORMATION: Screening. Asymptomatic. The lifetime risk of breast cancer based on the Tyrer-Cuzick Model is 2.3%. COMPARISON: Mammography: November 16, 2019 and studies dating back to July 21, 2012 TECHNIQUE: Digital breast tomosynthesis is performed in both the craniocaudal and mediolateral oblique views along with computer-aided detection (CAD). Synthesized 2D images are generated from the tomosynthesis. FINDINGS: The breasts are almost entirely fatty (ACR BI-RADS breast composition Category a). There are no significant masses, abnormal calcifications, or other abnormalities. MM/MM tomosynthesis screening BI IMPRESSION: There are no significant changes from prior study. ASSESSMENT: BI-RADS 1: Negative RECOMMENDATION: Routine annual mammography screening. This patient's information was entered into a reminder system with a target due date for their next mammogram.
== END 2020-11-21 09:16 | disposition home or self-care (01) ==
LOC: HO.MAMMO 09:15
PROVIDERS: Visit Provider Internal Medicine
DX: Z12.31 Encounter for screening mammogram for malignant neoplasm of breast (principal)
CPT/HCPCS: 77063; 77067

== ENCOUNTER → 2021-01-04 10:40 | Outpatient (BNVA) | payer MEDICARE, SELFPAY | PROVIDERS: PCP Internal Medicine; Visit Provider Student in an Organized Health Care Education/Training Program | DX: M47.896 Other spondylosis, lumbar region (principal); M54.5 Low back pain; G89.29 Other chronic pain | CPT/HCPCS: 99212 ==

== ENCOUNTER 2021-02-13 07:49 | Outpatient (REF) | payer MEDICARE, SELFPAY ==
[2021-02-13 11:45] LABS: Alanine Aminotransferase 16 U/L (0-31); Aspartate Amino Transferase 18 U/L (5-31); Cholesterol 229 mg/dL; HDL Cholesterol 49 mg/dL; LDL Cholesterol Calculated 138 mg/dl; Triglycerides 210 mg/dL
[2021-02-13 12:07] LABS: Vitamin D 25-OH Total 29.5 ng/mL (>30)
== END 2021-02-13 07:50 | disposition home or self-care (01) ==
LOC: HO.HMGCLDS 07:49
PROVIDERS: PCP Internal Medicine; Visit Provider Internal Medicine
DX: M85.851 Other specified disorders of bone density and structure, right thigh (principal); M85.852 Other specified disorders of bone density and structure, left thigh; E66.9 Obesity, unspecified; E78.5 Hyperlipidemia, unspecified; Z78.0 Asymptomatic menopausal state
CPT/HCPCS: 36415; 80061; 82306; 84450; 84460

== ENCOUNTER 2021-06-27 06:21 | Outpatient (REF) | payer MEDICARE, SELFPAY ==
[2021-06-27 12:05] LABS: Alanine Aminotransferase 18 U/L (0-31); Aspartate Amino Transferase 16 U/L (5-31); Cholesterol 197 mg/dL; HDL Cholesterol 43 mg/dL; LDL Cholesterol Calculated 120 mg/dl; Triglycerides 171 mg/dL
[2021-06-27 12:29] LABS: Vitamin D 25-OH Total 36.2 ng/mL (>30)
== END 2021-06-27 06:22 | disposition home or self-care (01) ==
LOC: HO.HMGCLDS 06:21
PROVIDERS: PCP Internal Medicine; Visit Provider Internal Medicine
DX: E78.5 Hyperlipidemia, unspecified (principal); M85.851 Other specified disorders of bone density and structure, right thigh; M85.852 Other specified disorders of bone density and structure, left thigh; Z78.0 Asymptomatic menopausal state; Z86.16 Personal history of COVID-19
CPT/HCPCS: 36415; 80061; 82306; 84450; 84460

== ENCOUNTER → 2021-07-31 11:21 | Outpatient (BNVA) | payer MEDICARE, SELFPAY | PROVIDERS: PCP Internal Medicine; Visit Provider Nurse Practitioner Family | DX: M54.5 Low back pain (principal); G89.29 Other chronic pain | CPT/HCPCS: 99212 ==

== ENCOUNTER 2021-08-07 07:18 | Outpatient (REF) | payer MEDICARE, SELFPAY ==
[2021-08-07 11:52] LABS: MANUAL DIFF FLAG NO
[2021-08-07 11:59] LABS: Basophils Percent Auto 0.3 % (0-2); Eosinophils Absolute Auto 0.2 X10*3/uL (0.0-0.4); Eosinophils Percent Auto 2.7 % (0-4); Hematocrit 47.8 % (37-47); Hemoglobin 16.4 g/dl (12.0-16.0); Imm Gran Abs Auto 0.02 X10*3/uL (0.00-0.03); Imm Gran Pct Auto 0.3 % (0.0-0.4); Lymphocytes Percent Auto 33.6 % (20-40); Mean Corpuscular HGB Conc 34.3 g/dl (31.0-35.0); Mean Corpuscular Hemoglobin 32.2 pg (27.0-33.0); Mean Corpuscular Volume 93.7 fL (80-98); Mean Platelet Volume 10.1 fL (9.4-12.3); Monocytes Absolute Auto 0.5 X10*3/uL (0.1-1.2); Monocytes Percent Auto 8.2 % (2-11); Neutrophils Absolute Auto 3.3 X10*3/uL (2.0-8.3); Neutrophils Percent Auto 54.9 % (45-73); Platelet Count 222 X10*3/uL (160-400); Red Cell Distribution Width 11.9 % (11.0-16.0)
== END 2021-08-07 07:19 | disposition home or self-care (01) ==
LOC: HO.HMGCLDS 07:18
PROVIDERS: PCP Internal Medicine; Visit Provider Nurse Practitioner Family
DX: M19.90 Unspecified osteoarthritis, unspecified site (principal)
CPT/HCPCS: 36415; 85025

== ENCOUNTER → 2021-08-27 13:13 | Outpatient (BNV) | payer MEDICARE, SELFPAY | PROVIDERS: PCP Internal Medicine; Referring Provider Nurse Practitioner Family; Visit Provider Internal Medicine | DX: D75.1 Secondary polycythemia (principal) | CPT/HCPCS: 99203; 99212; 99213; 99214 ==

== ENCOUNTER 2021-12-11 07:46 | Outpatient (REF) | payer MEDICARE, SELFPAY ==
--- NOTE | ~2021-12-11 | MM_ITS ---
EXAMINATION: MM SCREENING DIGITAL BREAST TOMOSYNTHESIS, BILATERAL CLINICAL INFORMATION: Screening. Asymptomatic. The lifetime risk of breast cancer based on the Tyrer-Cuzick Model is 2%. COMPARISON: Mammography: 11/21/2020, 11/16/2019, 11/10/2018 TECHNIQUE: Digital breast tomosynthesis is performed in both the craniocaudal and mediolateral oblique views along with computer-aided detection (CAD). Synthesized 2D images are generated from the tomosynthesis. FINDINGS: There are scattered areas of fibroglandular density (ACR BI-RADS breast composition Category b). Parenchymal pattern is similar to prior studies. There are fine fibronodular changes similar to prior studies. No developing density or interval mass or architectural abnormality. There are scattered benign round and ductal secretory calcifications. The axilla and skin contours are unremarkable. No significant changes from prior exams. MM/MM tomosynthesis screening BI IMPRESSION: No mammographic evidence of malignancy. ASSESSMENT: BI-RADS 2: Benign RECOMMENDATION: Routine annual mammography screening. This patient's information was entered into a reminder system with a target due date for their next mammogram.
--- NOTE | ~2021-12-11 | MM_ITS ---
EXAMINATION: BONE DENSITOMETRY CLINICAL INDICATION: Menopause. COMPARISON: Previous BD dated 11/16/2019 and baseline BD dated 08/08/2008. TECHNIQUE: Using a [employer] DXA System (software version: 13.1) manufactured by [employer], dual-energy x-ray absorptiometry was performed of the lumbar spine and left hip. The images are of good technical quality. Summary results are attached. FINDINGS: AP SPINE L1-L4: Current: BMD 1.398 g/cm2, Z-score 3.0, T-score 1.8, normal, 3.9% increase from previous, 13.2% increase from baseline (<5% change is not significant). Prior: BMD 1.345 g/cm2. Baseline: BMD 1.235 g/cm2. LEFT FEMUR, NECK: Current: BMD 0.712 g/cm2, Z-score -0.7, T-score -2.3, osteopenia. Prior: BMD 0.725 g/cm2. Baseline: BMD 0.784 g/cm2. LEFT FEMUR, TOTAL: Current: BMD 0.875 g/cm2, Z-score 0.4, T-score -1.1, osteopenia, 3.1% decrease from previous, 7.8% decrease from baseline (<5% change is not significant). Prior: BMD 0.903 g/cm2. Baseline: BMD 0.949 g/cm2. IDENTIFIED RISK FACTORS: Early menopause, anticonvulsant, secondary osteoporosis. HISTORY OF FRACTURE: None listed. MEDICATIONS: Calcium, vitamin D. MM/XR DEXA axial skeleton IMPRESSION: 1. DIAGNOSIS: Osteopenia based on the lowest T-score value of -2.3 in the femoral neck applying World Health Organization criteria. 2. 10-YEAR FRACTURE RISK PREDICTION, FRAX: Major osteoporotic fracture (clinical spine, forearm, hip or shoulder) 15.5%. Hip fracture 4.7%. 3. Treatment Recommendations: NOF guidelines recommend consideration for treatment in postmenopausal women and men age 50 and older presenting with the following: -A hip or vertebral (clinical or morphometric) fracture. -T-score less than or equal to -2.5 at the femoral neck or spine after appropriate evaluation to exclude secondary causes. -Low bone mass at the hip or spine and a 10-year fracture probability by FRAX of greater than or equal to 3% for hip fracture or greater than or equal to 20% for major osteoporotic fracture based on the [place] adapted WHO algorithm. 4. Other Recommendations: All treatment decisions require clinical judgment and consideration of individual patient factors, including patient preferences, comorbidities, previous drug use, risk factors not captured in the FRAX model (e.g. frailty, falls, vitamin D deficiency, increased bone turnover, interval significant decline in bone density) and possible under or overestimation of fracture risk by FRAX. Additional medical evaluation for secondary cause of low bone mineral density may be appropriate. FUTURE SCAN RECOMMENDATION: People with diagnosed cases of osteoporosis or at high risk for fracture should have regular bone mineral density tests. For patients eligible for Medicare, routine testing is allowed once every 2 years. The testing frequency can be increased to one year for patients who have rapidly progressing disease, those who are receiving or discontinuing medical therapy to restore bone mass, or have additional risk factors.
== END 2021-12-11 07:47 | disposition home or self-care (01) ==
LOC: HO.MAMMO 07:46
PROVIDERS: PCP Internal Medicine; Visit Provider Internal Medicine
DX: Z12.31 Encounter for screening mammogram for malignant neoplasm of breast (principal); Z13.820 Encounter for screening for osteoporosis; Z78.0 Asymptomatic menopausal state; M85.80 Other specified disorders of bone density and structure, unspecified site; Z79.899 Other long term (current) drug therapy
CPT/HCPCS: 77063; 77067; 77080

== ENCOUNTER → 2022-01-28 07:51 | Outpatient (BNVA) | payer MEDICARE, SELFPAY | PROVIDERS: PCP Internal Medicine; Visit Provider Nurse Practitioner Family | DX: M54.59 Other low back pain (principal); D75.1 Secondary polycythemia; G89.29 Other chronic pain | CPT/HCPCS: 99212 ==

== ENCOUNTER → 2022-07-31 08:21 | Outpatient (BNVA) | payer MEDICARE, SELFPAY | PROVIDERS: PCP Internal Medicine; Visit Provider Nurse Practitioner Family | DX: M19.90 Unspecified osteoarthritis, unspecified site (principal); G89.29 Other chronic pain; M54.50 Low back pain, unspecified; D75.1 Secondary polycythemia | CPT/HCPCS: 99212 ==

== ENCOUNTER 2022-08-02 06:26 | Outpatient (REF) | payer MEDICARE, SELFPAY ==
[2022-08-02 12:30] LABS: Alanine Aminotransferase 33 U/L (0-31); Albumin Level 4.2 g/dL (3.5-5.0); Alkaline Phosphatase 86 U/L (39-117); Anion Gap 17 (12-20); Aspartate Amino Transferase 26 U/L (5-31); Bilirubin Total 0.4 mg/dL (0.0-1.0); Blood Urea Nitrogen 16 mg/dL (9-16); Calcium 9.1 mg/dL (8.4-10.2); Carbon Dioxide 25 mmol/L (22-29); Chloride 106 mmol/L (96-108); Estimated Glomerular Filt Rate > 60; Glucose Random 98 mg/dL (60-115); Potassium 3.8 mmol/L (3.3-5.1); Sodium 144 mmol/L (135-145); Total Protein 6.6 g/dL (6.5-8.0)
== END 2022-08-02 06:27 | disposition home or self-care (01) ==
LOC: HO.HMGCLDS 06:26
PROVIDERS: PCP Internal Medicine; Visit Provider Nurse Practitioner Family
DX: M19.90 Unspecified osteoarthritis, unspecified site (principal)
CPT/HCPCS: 36415; 80053

== ENCOUNTER 2022-08-03 09:07 | Outpatient (REF) | payer MEDICARE, MEDICAID, SELFPAY ==
--- NOTE | ~2022-08-03 | XR_ITS ---
EXAMINATION: XR LUMBOSACRAL SPINE CLINICAL INFORMATION: Low back pain. COMPARISON: None TECHNIQUE: Three views of the lumbosacral spine. FINDINGS: There is normal lumbar lordosis. Grade 1 anterolisthesis L4-L5 and grade 1 retrolisthesis L2 over L3 is visualized. There is loss of T12-L1, L1-L2 and L2-L3 disc heights with ventral spondylosis. No compression fracture, lytic or sclerotic process seen. Bilateral facet joint arthropathy seen at the L4-L5 and L5/S1 disc levels. SI joints are symmetrical. XR/XR lumbar spine 2-3V IMPRESSION: Degenerative disc changes with ventral spondylosis T12-L1, L1-L2 and L2-L3 disc levels. Grade 1 anterolisthesis L4 over L5 and grade 1 retrolisthesis L2 over L3.
== END 2022-08-03 09:08 | disposition home or self-care (01) ==
LOC: HO.HMGCX 09:07
PROVIDERS: PCP Internal Medicine; Visit Provider Nurse Practitioner Family
DX: M54.50 Low back pain, unspecified (principal)
CPT/HCPCS: 72100

== ENCOUNTER 2022-09-18 08:00 | Outpatient (RCR) | payer MEDICARE, SELFPAY ==
--- NOTE | 2022-09-11 08:42 | MHC.PT.EP ---
[facility] [place] Office [place] Office [place] Office [address] Annette Martin [address] [phone] F: [phone] F: [phone] F: [phone] F: [phone] Physical Therapy Plan of Care Date of Evaluation: Date of Surgery: Diagnosis: LBP Assessment: Pt is a 67 y/o female referred to physical therapy for eval and treat of LBP resulting in decreased tolerance for standing, walking further than short distances, sitting for long duration, and performing HH chores secondary to decreased core and hip strength, decreased trunk ROM, decreased posture, sedentary lifestyle, history of spinal OA and scoliosis and pain. Pt is deemed an appropriate candidate to receive skilled PT services to address their physical impairments in order to improve her functional ability. Frequency and Duration: The patient will be seen 2 x/ wk x 5 wks. Short Term Goals: Initiate HEP. improve baseline pain to < 4/10; initial: 6/10. Longterm Goals: I with HEP. Pt will be able to stand > 1 hour with managed pain; initial: < 10 min d/t LBP. Improve core strength to at least good; initial: Fair. Pt will be able ot tolerate walking intermediate distances with managed pain; initial: Pt can tolerate short distances. Treatment Plan: Modalities to reduce pain, spasms and effusion. Manual therapy to restore motion and function. Therapeutic exercise to improve strength and flexibility. Neuromuscular re-education for posture and balance. Therapeutic activities to return to functional activities of daily living. Electronically signed by: Carlos Cuellar PT. Please sign and return to therapist. Thank you for your referral.
== END 2022-09-18 11:09 | disposition home or self-care (01) ==
LOC: HO.PTCHIC 08:00
PROVIDERS: PCP Internal Medicine; Visit Provider Nurse Practitioner Family
DX: M54.50 Low back pain, unspecified (principal)
CPT/HCPCS: 97110; 97161

== ENCOUNTER 2022-12-17 08:15 | Outpatient (REF) | payer MEDICARE, SELFPAY ==
--- NOTE | ~2022-12-17 | MM_ITS ---
EXAMINATION: MM SCREENING DIGITAL BREAST TOMOSYNTHESIS, BILATERAL CLINICAL INFORMATION: Screening. Asymptomatic. The lifetime risk of breast cancer based on the Tyrer-Cuzick Model is 2%. COMPARISON: Mammography: 12/11/2021, 11/21/2020, 11/16/2019 TECHNIQUE: Digital breast tomosynthesis is performed in both the craniocaudal and mediolateral oblique views along with computer-aided detection (CAD). Synthesized 2D images are generated from the tomosynthesis. FINDINGS: There are scattered areas of fibroglandular density (ACR BI-RADS breast composition Category b). There are no significant masses, abnormal calcifications, or other abnormalities. No architectural abnormality or developing density or significant change from prior studies. There are scattered bilateral benign round and some ductal secretory calcifications again seen. The axilla are unremarkable. No significant changes. MM/MM tomosynthesis screening BI IMPRESSION: No mammographic evidence of malignancy. ASSESSMENT: BI-RADS 2: Benign RECOMMENDATION: Routine annual mammography screening. This patient's information was entered into a reminder system with a target due date for their next mammogram.
== END 2022-12-17 08:16 | disposition home or self-care (01) ==
LOC: HO.MAMMO 08:15
PROVIDERS: PCP Internal Medicine; Visit Provider Internal Medicine
DX: Z12.31 Encounter for screening mammogram for malignant neoplasm of breast (principal)
CPT/HCPCS: 77063; 77067

== ENCOUNTER 2023-04-22 06:48 | Outpatient (REF) | payer MEDICARE, SELFPAY ==
[2023-04-22 12:24] LABS: Alanine Aminotransferase 19 U/L (0-31); Aspartate Amino Transferase 22 U/L (5-31); Cholesterol 189 mg/dL; HDL Cholesterol 42 mg/dL; LDL Cholesterol Calculated 113 mg/dl; Triglycerides 170 mg/dL; Vitamin D 25-OH Total 55.6 ng/mL (>30)
== END 2023-04-22 06:49 | disposition home or self-care (01) ==
LOC: HO.HMGCLDS 06:48
PROVIDERS: PCP Internal Medicine; Visit Provider Internal Medicine
DX: E66.9 Obesity, unspecified (principal); E78.5 Hyperlipidemia, unspecified; M85.851 Other specified disorders of bone density and structure, right thigh; M85.852 Other specified disorders of bone density and structure, left thigh; Z78.0 Asymptomatic menopausal state
CPT/HCPCS: 36415; 80061; 82306; 84450; 84460

== ENCOUNTER 2023-09-02 09:26 | Outpatient (AMB) | payer MEDICARE, SELFPAY ==
[2023-09-02 09:38] VITALS: BP 154/82; PULSE 86; TEMP 36.2; O2SAT 95; BMI 33.7
--- NOTE | 2023-09-02 09:38 | A.OFFVIS_ITS ---
Intake Vital Signs 09/02/23 09:38 Height 5 ft 2 in Weight 184 lb 4.903 oz BMI 33.7 BP 154/82 H Blood Pressure Location Rt brachial Position Sitting Pulse 86 Pulse Source Pulse Oximeter Temp 97.1 F Temp Source Skin Pulse Oximetry (%) 95 Intake Visit Reasons: OA Intake Note: Pt presents today for 1 year OA follow up. She was last seen by Lydia De Oliveira 07/31/22. She completed labs, x-ray and PT. 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 Accompanied by: Self / Same As Patient Allergies No Known Allergies Allergy (Verified 09/02/23 09:42) Medication List - Last Reconciled 09/02/23 by Pam Chinchilla MD antiarthritic combination no.2 (glucosamine-chondroitin) 900 mg PO BID ascorbate calcium (vitamin C) 2 grams PO DAILY calcium carbonate (Calcium) 600 mg PO DAILY cholecalciferol (vitamin D3) 25 mcg PO BID gabapentin 100 mg PO DAILY PRN naproxen sodium (Aleve) 220 mg PO BID PRN omega-3 fatty acids (Fish Oil Concentrate) 1,000 mg PO DAILY pravastatin 40 mg PO DAILY HPI HPI Comments History of Present Illness Details 78yoF presents for follow-up of low back pain. She was last seen by Jayda De Oliveira 07/2022. Patient states that she takes Aleve 220 mg 4-5 tabs a day. She also takes gabapentin 100 mg nightly once or twice a week as needed. States that she feels about the same [facility] Medical History History of COVID-19 Menopause Urinary incontinence in female Tubular adenoma of colon Osteopenia of both hips Obesity Osteoarthritis Hyperlipidemia Surgical History History of cataract surgery Family History Father Unknown family medical history Mother Unknown family medical history Daughter No problems noted. Son No problems noted. Social History Household Members: Family and None Housing: Other Are you a primary adult daycare coordinator to a significant other at home: No Do you presently have visiting nurse or other home services: No Alcohol intake: former Patient Tobacco Use Status: Never used Tobacco e-Cigarette/Vaping Use: Never Used service: No Current occupational status: retired Cognitive needs: No Hearing needs: No Vision needs: Yes Review of Systems Musc Reports abnormal gait, Reports back pain and Reports arthralgias Neuro Reports abnormal gait Physical Exam Vital Signs: Last Vital Signs Temp 97.1 F 09/02/23 09:38 Pulse 86 09/02/23 09:38 BP 154/82 H 09/02/23 09:38 Pulse Ox 95 09/02/23 09:38 BMI result Body Mass Index 33.7 Const General: cooperative, healthy appearing and comfortable Nutritional Appearance: obese Orientation/consciousness: patient oriented x3 Limitations: ambulation with cane HEENT Head: Yes normocephalic and Yes atraumatic Resp Effort & Inspection: normal respiratory effort and able to speak in complete sentences Neuro General: patient oriented x3 Extrem Other: Mild osteoarthritic changes of both hands with no active synovitis Assessment & Plan Assessment & Plan (1) Low back pain: Code(s): M54.5 - Low back pain Qualifiers: Chronicity: chronic Back pain laterality: unspecified Sciatica presence: unspecified whether sciatica present Qualified Code(s): M54.5 - Low back pain; G89.29 - Other chronic pain Plan: 78-year-old female with chronic degenerative arthritis presents for follow-up. Patient takes gabapentin 100 mg once or twice a week as needed for back pain. Symptoms are relatively stable. Advised patient that she can request gabapentin refill from her PCP. And she can follow-up with us p.r.n.. Otherwise follow-up in 1 year Plan I spent 15 minutes reviewing patient's chart, evaluating patient, counseling patient and documenting in the chart Coding Level of Care Code Est Pt Level 3 (20748) Diagnoses Chronic low back pain, unspecified back pain laterality, unspecified whether sciatica present M54.5; G89.29 Chronicity: chronic Back pain laterality: unspecified Sciatica presence: unspecified whether sciatica present
== END 2023-09-02 10:06 | disposition home or self-care (01) ==
PROVIDERS: PCP Internal Medicine; Visit Provider Student in an Organized Health Care Education/Training Program
DX: M54.50 Low back pain, unspecified (principal); G89.29 Other chronic pain
CPT/HCPCS: 99213

== ENCOUNTER → 2023-09-02 09:26 | Outpatient (BNVA) | payer MEDICARE, SELFPAY | PROVIDERS: PCP Internal Medicine; Visit Provider Student in an Organized Health Care Education/Training Program | DX: M54.59 Other low back pain (principal); G89.29 Other chronic pain | CPT/HCPCS: 99212 ==

== ENCOUNTER 2023-10-07 06:43 | Outpatient (REF) | payer MEDICARE, SELFPAY ==
[2023-10-07 11:17] LABS: Alanine Aminotransferase 14 U/L (0-31); Aspartate Amino Transferase 16 U/L (5-31); Cholesterol 174 mg/dL (<200); HDL Cholesterol 41 mg/dL (>40); LDL Cholesterol Calculated 101 mg/dL (<100); Triglycerides 162 mg/dL (<150)
== END 2023-10-07 06:44 | disposition home or self-care (01) ==
LOC: HO.HMGCLDS 06:43
PROVIDERS: PCP Internal Medicine; Visit Provider Internal Medicine
DX: E78.5 Hyperlipidemia, unspecified (principal)
CPT/HCPCS: 36415; 80061; 84450; 84460

== ENCOUNTER 2023-10-15 09:40 | Outpatient (AMB) | payer MEDICARE, SELFPAY ==
--- NOTE | 2023-10-15 09:58 | A.OFFPC_ITS ---
Vital Signs 10/15/23 09:59 Height 5 ft 2 in Weight 183 lb 4 oz BMI 33.5 BP 146/82 H Blood Pressure Location Rt brachial Position Sitting Pulse 75 Pulse Source Pulse Oximeter Pulse Oximetry (%) 98 Oxygen Delivery Method Room Air Intake Visit Reasons: 6 month follow up Intake Note: Pt is here to follow up for lab results Allergies No Known Allergies Allergy (Verified 10/15/23 10:22) Medication List - Last Reconciled 10/15/23 by Radha Melvin MD antiarthritic combination no.2 (glucosamine-chondroitin) 900 mg PO BID ascorbate calcium (vitamin C) 2 grams PO DAILY calcium carbonate (Calcium) 600 mg PO DAILY cholecalciferol (vitamin D3) 25 mcg PO BID gabapentin 100 mg PO DAILY PRN naproxen sodium (Aleve) 220 mg PO BID PRN omega-3 fatty acids (Fish Oil Concentrate) 1,000 mg PO DAILY pravastatin 40 mg PO DAILY Tobacco use date assessed: 10/15/23 Fall risk assessment: 1 Fall in past year Last assessed Fall Risk: 10/15/23 Dental Screening Dental Screen Date: 10/15/23 Did you have a dental visit in the last 12 months?: No Did you have a dental problem in the last 6 months where you did not have access to dental care?: No Was dental information given to patient?: No HPI 6 month follow up HPI Details 78-year-old lady here today for follow-u p on her lipids. Currently taking pravastatin, 40 mg daily at bedtime, and has been compliant with her diet, but not much exercise to speak off. Only activity she really has on a regular basis is her knitting clubbing every Friday at the [facility] . [facility] Medical History History of COVID-19 Menopause Urinary incontinence in female Tubular adenoma of colon Osteopenia of both hips Obesity Osteoarthritis Hyperlipidemia Surgical History History of cataract surgery Family History Father Unknown family medical history Mother Unknown family medical history Daughter No problems noted. Son No problems noted. Social History Household Members: Family and None Housing: Other Are you a primary career portals teacher to a significant other at home: No Do you presently have visiting nurse or other home services: No Alcohol intake: former Patient Tobacco Use Status: Never used Tobacco e-Cigarette/Vaping Use: Never Used service: No Current occupational status: retired Cognitive needs: No Hearing needs: No Vision needs: Yes Questionnaire Thrive Questionnaire Date Thrive assessed: 04/30/23 LISE-7 AMB Questionnaire LISE-7 Date LISE - 7 assessed: 04/30/23 Source: Developed by Drs. Dionicio Stiles, Kaylyn Dickerson, Colby Miller and colleagues, with an educational yoly from [employer]. Review of Systems Const Denies fever(s), Denies headache(s) and Denies weakness Eyes Denies change in vision ENT Denies dizziness, Denies headache(s), Denies nasal discharge, Reports disequilibrium (Occasional when walking or bending forward) and Denies sore throat Card Denies chest pain, Denies lightheadedness, Denies palpitations and Denies dyspne a Resp Denies chest congestion, Denies cough, Denies dyspnea and Denies wheezing GI Denies abdominal pain, Denies change in bowel habits, Denies dyspepsia and Denies heartburn Denies urinary frequency, Denies dysuria and Denies urinary urgency Musc Reports back pain (Occasional), Reports myalgias (Mild intermittent), Denies arthralgias, Denies muscle weakness and Reports stiffness Neuro Denies dizziness, Denies headache(s), Reports disequilibrium (Occasional when walking or bending forward) and Denies weakness Endo Denies polydipsia, Denies polyuria and Denies palpitations Aller/Immun Denies wheezing Physical exam (Primary Care) Vital Signs: Last Vital Signs Pulse 75 10/15/23 09:59 BP 146/82 H 10/15/23 09:59 Pulse Ox 98 10/15/23 09:59 Oxygen Delivery Method Room Air 10/15/23 09:59 BMI result Body Mass Index 33.5 Tobacco/Smoking Status: Tobacco use Status Tobacco use date assessed 10/15/23 10/15/23 10:03 Patient Tobacco Use Status Never used Tobacco 10/15/23 09:58 e-Cigarette/Vaping Use Never Used 10/15/23 09:58 Thrive Assessment: Date of Thrive Assessment Date Thrive assessed 04/30/23 10/15/23 09:58 Const Other: Alert all elderly female, ambulatory with assistance of a cane, no acute cardiorespiratory distress noted Eyes General: appearance normal, both eyes and all related structures Neck Neck: Yes full ROM, Yes no lymphadenopathy and Yes supple Resp Effort & Inspection: normal respiratory effort and able to speak in complete sentences Auscultation: clear to auscultation bilaterally Cardio Rate: regular rate Rhythm: regular rhythm Heart sounds: S1 normal heart sound present and S2 normal heart sound present Neuro Gait exam (Neuro): Assisted gait required (Cane) Results Reviewed Results Reviewed: Name: Yun Stark Age/Sex: 78/F : 1945 Unit#: [id number] Attend Dr: Radha Melvin MD Re10/07/23 Status: DEP REF Location: [facility] Disch: SPEC : [id number] HERACLIO: 10/07/23 STATUS: COMP REQ : [id number] RECD: 10/07/[address]: Radha Melvin MD COMP: 10/07/23 ENTERED: 10/07/[address]: ORDERED: AST, ALT, Lipid Panel Test Result Flag Reference Site AST (GOT) 16 5-31 U/L ALT (GPT) 14 0-31 U/L Triglyceride 162 H <150 mg/dL Desirable Triglyceride: less than 150 mg/dL Borderline High Triglyceride 150-199 mg/dL High Triglyceride: 200-499 mg/dL Very High Triglyceride: greater than or equal to 5OO mg/dL Cholesterol 174 <200 mg/dL Desirable Cholesterol: less than 200 mg/dL Borderline High Cholesterol: 200-239 mg/dL High Cholesterol: greater than 239 mg/dL LDL Calculated 101 H <100 mg/dL Desirable LDL: less than 100 mg/dL Near Optimal/Above Optimal LDL: 110-129 mg/dL Borderline High LDL: 130-159 mg/dL High LDL: 160-189 mg/dL Very High LDL: greater than or equal to 190 mg/dL HDL 41 >40 mg/dL Desirable HDL: greater than 40 mg/dL Note: This HDL assay may give artificially low results in patients with liver disease. Assessment and Plan Assessment & Plan (1) Hyperlipidemia: Code(s): E78.5 - Hyperlipidemia, unspecified Qualifiers: Hyperlipidemia type: pure hypercholesterolemia Qualified Code(s): E78.00 - Pure hypercholesterolemia, unspecified Plan: Reviewed recent fasting lipid profile with patient with levels within normal limits except for slightly elevated triglycerides . Continue with pravastatin 40 mg at bedtime , in addition to adherence to low-cholesterol diet and regular exercise, at least 30 minutes 3 to 4 times a week. Advised patient to make healthy food choices, eat more fruits, vegetables, whole grains, wild caught fish and low-fat dairy. Limit amount of meat and fried or fatty food products, as well as processed foods and fast foods. Follow-up scheduled with repeat fasting lipid panel in 03/2024. Orders: Orders Aspartate Amino Transferase 03/03/24 E78.5 - Hyperlipidemia, unspecified, M85.851 - Other specified disorders of bone density and structure, right thigh, M85.852 - Other specified disorders of bone density and structure, left thigh, Z78.0 - Asymptomatic menopausal state Lipid Panel 03/03/24 E78.5 - Hyperlipidemia, unspecified, M85.851 - Other specified disorders of bone density and structure, right thigh, M85.852 - Other specified disorders of bone density and structure, left thigh, Z78.0 - Asymptomatic menopausal state Alanine Aminotransferase 03/03/24 E78.5 - Hyperlipidemia, unspecified, M85.851 - Other specified disorders of bone density and structure, right thigh, M85.852 - Other specified disorders of bone density and structure, left thigh, Z78.0 - Asymptomatic menopausal state Vitamin D 25-OH Total 03/03/24 E78.5 - Hyperlipidemia, unspecified, M85.851 - Other specified disorders of bone density and structure, right thigh, M85.852 - Other specified disorders of bone density and structure, left thigh, Z78.0 - Asymptomatic menopausal state Basic Metabolic Panel Fasting 03/03/24 E78.5 - Hyperlipidemia, unspecified, M85.851 - Other specified disorders of bone density and structure, right thigh, M85.852 - Other specified disorders of bone density and structure, left thigh, Z78.0 - Asymptomatic menopausal state Coding Level of Care Code Est Pt Level 3 (64007) Diagnoses Pure hypercholesterolemia E78.00 Hyperlipidemia type: pure hypercholesterolemia
[2023-10-15 09:59] VITALS: BP 146/82; PULSE 75; O2SAT 98; BMI 33.5
== END 2023-10-15 11:55 | disposition home or self-care (01) ==
PROVIDERS: PCP Internal Medicine; Visit Provider Internal Medicine
DX: E78.00 Pure hypercholesterolemia, unspecified (principal)
CPT/HCPCS: 99213

== ENCOUNTER 2023-12-25 09:21 | Outpatient (REF) | payer MEDICARE, SELFPAY | END 2023-12-25 09:22 | disposition home or self-care (01) | LOC: HO.MAMMO 09:21 | PROVIDERS: PCP Internal Medicine; Visit Provider Internal Medicine | DX: Z12.31 Encounter for screening mammogram for malignant neoplasm of breast (principal) | CPT/HCPCS: 77063; 77067 ==

== ENCOUNTER → 2023-12-25 09:30 | Outpatient (BNV) | payer MEDICARE, SELFPAY | PROVIDERS: PCP Internal Medicine; Visit Provider Radiology Diagnostic Radiology | DX: Z12.31 Encounter for screening mammogram for malignant neoplasm of breast (principal) | CPT/HCPCS: 77063; 77067 ==

== ENCOUNTER 2024-02-25 15:58 | Emergency (ER) | payer MEDICARE, SELFPAY ==
[2024-02-25 16:14] VITALS: BP 124/80; BP 134/71; PULSE 67; PULSE 73; RESP 12; TEMP 36.6; O2SAT 96; O2SAT 98; BMI 29.8
--- NOTE | 2024-02-25 16:25 | ECG_ITS ---
Test Reason : NEAR SYNCOPE Blood Pressure : / mmHG Vent. Rate : 065 BPM Atrial Rate : 065 BPM P-R Int : 210 ms QRS Dur : 084 ms QT Int : 416 ms P-R-T Axes : 072 -26 027 degrees QTc Int : 432 ms Sinus rhythm with 1st degree A-V block with Premature atrial complexes Otherwise normal ECG When compared with ECG of 23-OCT-2020 08:08, Premature atrial complexes are now Present Referred By: Sb Quan Electronically Signed By:ÓSCAR COTTRELL MD
--- NOTE | 2024-02-25 16:46 | ED.GENADULT ---
HPI - General Adult General Chief complaint: Dizziness Stated complaint: near syncopal episode, light headed Time Seen by Provider: 02/25/24 16:11 Source: patient, RN notes reviewed and old records reviewed Mode of arrival: EMS Limitations: no limitations History of Present Illness HPI narrative: 78-year-old female past medical history significant for polycythemia, obesity, osteoarthritis, hyperlipidemia presents for evaluation of a near syncopal episode. Patient reports that she felt well today when she woke up. She reports she felt the need to have a bowel movement. She states that when she stood up ?I got very lightheaded and felt like I was going to pass out. ? She reports she then laid on the ground and ?I vomited and had diarrhea on the floor. ? She did not have any chest pain, she did not have any shortness of breath, palpitations. She states that she feels back to her baseline She reports some associated nausea which she relates to ?I get motion sickness so I think it was from the ambulance ride. ? Denies any history of vertigo No fevers, chills Related Data Home Medications ?Medication ?Instructions ?Recorded ?Confirmed antiarthritic combination no.2 900 900 mg PO BID 08/15/20 02/09/24 mg tablet (glucosamine-chondroitin) calcium carbonate 600 mg calcium 600 mg PO DAILY 08/15/20 02/09/24 (1,500 mg) tablet (Calcium) cholecalciferol (vitamin D3) 25 25 mcg PO BID 08/15/20 02/09/24 mcg (1,000 unit) capsule omega-3 fatty acids 1,000 mg 1,000 mg PO DAILY 08/15/20 02/09/24 capsule (Fish Oil Concentrate) ascorbate calcium (vitamin C) 500 2 g PO DAILY 01/28/22 02/09/24 mg tablet gabapentin 100 mg capsule 100 mg PO DAILY PRN Pain 09/02/23 02/09/24 naproxen sodium 220 mg tablet 220 mg PO BID PRN prn 09/02/23 02/09/24 (Aleve) Previous Rx's ?Medication ?Instructions ?Recorded pravastatin 40 mg tablet 40 mg PO DAILY #90 tabs 04/30/23 cefuroxime axetil 250 mg tablet 250 mg PO BID 5 days #10 tabs 02/25/24 Allergies Allergy/AdvReac Type Severity Reaction Status Date / Time No Known Allergies Allergy Verified 02/25/24 16:16 Review of Systems Constitutional: Constitutional: Denies body ache(s), Denies chills and Denies fever(s) Eyes: Eyes: Denies blurry vision ENT: Denies sore throat Cardiovascular: Cardiovascular: Denies chest pain, Reports lightheadedness and Denies dyspnea Respiratory: Respiratory: Denies cough and Denies dyspnea Gastrointestinal: Gastrointestinal: Denies abdominal pain, Reports diarrhea, Reports nausea and Reports vomiting Musculoskeletal: Musculoskeletal: Denies back pain Integumentary/Breasts: Skin/Breast: Denies rash PMFSH Past Medical History Medical History History of COVID-19 Menopause Urinary incontinence in female Tubular adenoma of colon Osteopenia of both hips Obesity Osteoarthritis Hyperlipidemia Surgical History History of cataract surgery Family History Family History Father Unknown family medical history Mother Unknown family medical history Daughter No problems noted. Son No problems noted. Social History Social History Household Members: Family and None Housing: Other Are you a primary primary care coordinator to a significant other at home: No Do you presently have visiting nurse or other home services: No Alcohol intake: former Patient Tobacco Use Status: Never used Tobacco Smoked in Last 30 Days: No e-Cigarette/Vaping Use: Never Used Use of substances other than those prescribed or required for medical reasons: No Advance Directives: Yes Advance Directives Information Provided: No Advance Directives on File: No Do you have a plan to hurt others: No Plan service: No Current occupational status: retired Cognitive needs: No Hearing needs: No Vision needs: Yes Physical Exam ED Vital Signs: Vital Signs - 24 hr 02/25/24 16:14 02/25/24 17:10 02/25/24 17:12 Temperature 97.8 F Pulse Rate 67 64 73 Respiratory Rate 12 Blood Pressure 134/71 144/63 H 145/54 H Pulse Oximetry 98 Oxygen Delivery Method Room Air 02/25/24 17:12 02/25/24 18:34 Temperature 97.9 F Pulse Rate 73 75 Respiratory Rate 16 Blood Pressure 125/65 133/46 L Pulse Oximetry 94 Oxygen Delivery Method Room Air BMI result Body Mass Index 29.8 Const General: healthy appearing, comfortable, no acute distress, alert and awake Nutritional Appearance: well nourished Orientation/consciousness: patient oriented x3 HENMT Head: Yes normocephalic and Yes atraumatic Eyes Eyelids: Yes eyelids normal Conjunctivae: conjunctivae normal Sclerae: sclerae normal Corneas: corneas normal Pupils: Equal, round and reactive pupils present EOM: EOMs intact bilaterally Neck Neck: Yes full ROM Resp Effort & Inspection: normal respiratory effort, able to speak in complete sentences, no audible wheezes and not labored Auscultation: clear to auscultation bilaterally Cardio Rate: regular rate Rhythm: regular rhythm GI Inspection: No distended Palpation (GI): Soft to palpation, not firm, Tenderness to palpation present (GI) (Left midabdomen tenderness) in the epigastrum, no guarding and not rigid Auscultation: normoactive bowel sounds Skin General skin exam: elasticity normal Neuro General: patient oriented x3 Cranial nerves: Yes Equal, round and reactive pupils present and Yes Bilaterally intact EOM present Cognition (Neuro): normal cognition Extrem Other: Moving all extremities well without any obvious deformities Course Reevaluation(s) Reevaluation #1: Patient's blood pressure did drop 20 points systolic from sitting to standing this may explain her lightheadedness upon standing. Will treat with IV fluids. Time: 18:36 Medications Administered Discontinued Medications Generic Name Dose Route Start Last Admin Trade Name Freq PRN Reason Stop Dose Admin Sodium Chloride 1,000 mls @ 999 mls/hr 02/25/24 18:45 02/25/24 18:39 Ns IV 02/25/24 19:45 999 mls/hr .Q1H1M REPLACED BY [facility] Administration Medical Decision Making Medical Decision Making MDM Narrative: 78-year-old female presents for evaluation of a near syncopal episode. She reports that she laid herself on the ground after she felt like she was going to pass out. There was no loss of consciousness, there was no fall. Patient denies any symptoms currently except for some mild nausea. Plan for EKG, labs, orthostatic vital signs. She did have COVID-19 a few weeks ago. Her vital signs are within normal limits on arrival. Further workup as indicated. Based on history, it is possible she had a vasovagal episode. Differential Diagnosis Differential Diagnoses: The differential diagnosis associated with the presentation includes Orthostasis Vasovagal syncope Near-syncope Dehydration COVID-19 Viral syndrome Lab Data MDM Lab Attestation statement: I reviewed the patient's lab results. No leukocytosis. The patient does have a history of polycythemia and her hemoglobin hematocrit elevated consistent with her baseline. Patient's CO2 is slightly elevated to 30 which pain related to sleep apnea. Electrolytes are within normal limits renal function within normal limits 02/25/24 16:51 02/25/24 16:51 Labs: Lab Results 02/25/24 02/25/24 Range/Units 16:51 19:12 WBC 10.3 (4.8-10.8) X10*3/uL RBC 5.27 (4.20-5.50) X10*6/uL Hgb 16.8 H (12.0-16.0) g/dl Hct 47.1 H (37.0-47.0) % MCV 89.4 (80.0-98.0) fL MCH 31.9 (27.0-33.0) pg MCHC 35.7 H (31.0-35.0) g/dl RDW 12.0 (11.0-16.0) % Plt Count 206 (160-400) X10*3/uL MPV 9.3 L (9.4-12.3) fL Immature Gran % (Auto) 0.4 (0.0-0.4) % Neut % (Auto) 81.1 H (45-73) % Lymph % (Auto) 12.7 L (20-40) % [place] % (Auto) 4.7 (2-11) % Eos % (Auto) 0.9 (0-4) % Baso % (Auto) 0.2 (0-2) % Lymph # (Auto) 1.3 (1.2-4.9) X10*3/uL [place] # (Auto) 0.5 (0.1-1.2) X10*3/uL Eos # (Auto) 0.1 (0.0-0.4) X10*3/uL Baso # (Auto) 0.0 (0.0-0.2) X10*3/uL Abs Immat Gran (auto) 0.04 H (0.00-0.03) X10*3/uL Absolute Neuts (auto) 8.3 (2.0-8.3) x10*3/uL Absolute Nucleated RBC 0.000 (0.0-0.012) X10*3/uL Nucleated RBC % (auto) 0.0 (0.0-0.2) /100WBC Sodium 144 (135-145) mmol/L Potassium 3.5 (3.3-5.1) mmol/L Chloride 107 (96-108) mmol/L Carbon Dioxide 30 H (22-29) mmol/L Anion Gap 11 L (12-20) BUN 16 (9-16) mg/dL Creatinine 0.72 (0.5-1.4) mg/dL Estim Creat Clear Calc 71.4 Estimated GFR > 60 Random Glucose 122 H (60-115) mg/dL Calcium 9.6 (8.4-10.2) mg/dL Total Bilirubin 0.3 (0.0-1.0) mg/dL AST 21 (5-31) U/L ALT 21 (0-31) U/L Alkaline Phosphatase 101 (39-117) U/L Troponin I High Sens < 2.7 (<3.5-17.0) ng/L Total Protein 7.1 (6.5-8.0) g/dL Albumin 4.0 (3.5-5.0) g/dL Lipase 36 (8-78) U/L Urine Color Yellow Urine Appearance Clear Urine pH 5.5 (5.0-9.0) Ur Specific [place] 1.015 (1.005-1.025) Urine Protein Negative (Neg-Trace) mg/dL Urine Glucose (UA) Negative (Negative) mg/dL Urine Ketones Trace (Negative) mg/dL Urine Blood Negative (Negative) Urine Nitrite Positive H (Negative) Ur Leukocyte Esterase Trace H (Negative) Urine RBC 0-2 (0-2) /HPF Urine WBC 0-5 (0-5) /HPF Ur Squamous Epith Cells 3-5 (0-2) /HPF Urine Bacteria 4+ (None Seen) Hyaline Casts 0-2 (0-2) /LPF Influenza Type A (PCR) NEGATIVE (Negative) Influenza Type B (PCR) NEGATIVE (Negative) RSV RNA Qual (PCR) NEGATIVE (Negative) SARS-CoV-2 RNA (RT-PCR) NEGATIVE (Negative) Discharge Plan Discharge Clinical Impression: Near syncope, Urinary tract infection Patient Disposition: Home, Self-Care Instructions: Urinary Tract Infection in Women (ED) Additional Instructions: Your workup in the ER today was reassuring. You do have a urinary tract infection and you were slightly dehydrated Take Ceftin twice daily for 5 days Drink lots of fluids Follow-up with your primary doctor Return for new or worsening symptoms Prescriptions: New cefuroxime axetil 250 mg tablet 250 mg PO BID 5 Days Qty: 10 0RF No Action omega-3 fatty acids [Fish Oil Concentrate] 1,000 mg capsule 1,000 mg PO DAILY glucosamine-chondroitin 900 mg tablet 900 mg PO BID calcium carbonate [Calcium 600] 600 mg calcium (1,500 mg) tablet 600 mg PO DAILY cholecalciferol (vitamin D3) 25 mcg (1,000 unit) capsule 25 mcg PO BID pravastatin 40 mg tablet 40 mg PO DAILY Qty: 90 3RF ascorbate calcium (vitamin C) 500 mg tablet 2 g PO DAILY gabapentin 100 mg capsule 100 mg PO DAILY PRN (Reason: Pain) naproxen sodium [Aleve] 220 mg tablet 220 mg PO BID PRN (Reason: prn) Print Language: Hebrew
[2024-02-25 16:54] LABS: MANUAL DIFF FLAG NO
[2024-02-25 16:57] LABS: Basophils Percent Auto 0.2 % (0-2); Eosinophils Absolute Auto 0.1 X10*3/uL (0.0-0.4); Eosinophils Percent Auto 0.9 % (0-4); Hematocrit 47.1 % (37.0-47.0); Hemoglobin 16.8 g/dl (12.0-16.0); Imm Gran Abs Auto 0.04 X10*3/uL (0.00-0.03); Imm Gran Pct Auto 0.4 % (0.0-0.4); Lymphocytes Absolute Auto 1.3 X10*3/uL (1.2-4.9); Lymphocytes Percent Auto 12.7 % (20-40); Mean Corpuscular HGB Conc 35.7 g/dl (31.0-35.0); Mean Corpuscular Hemoglobin 31.9 pg (27.0-33.0); Mean Corpuscular Volume 89.4 fL (80.0-98.0); Mean Platelet Volume 9.3 fL (9.4-12.3); Monocytes Absolute Auto 0.5 X10*3/uL (0.1-1.2); Monocytes Percent Auto 4.7 % (2-11); Neutrophils Absolute Auto 8.3 x10*3/uL (2.0-8.3); Neutrophils Percent Auto 81.1 % (45-73); Platelet Count 206 X10*3/uL (160-400); Red Blood Count 5.27 X10*6/uL (4.20-5.50); White Blood Count 10.3 X10*3/uL (4.8-10.8)
[2024-02-25 17:10] VITALS: BP 144/63; PULSE 64
[2024-02-25 17:12] VITALS: BP 125/65; BP 145/54; PULSE 73
[2024-02-25 17:16] LABS: Alanine Aminotransferase 21 U/L (0-31); Alkaline Phosphatase 101 U/L (39-117); Anion Gap 11 (12-20); Aspartate Amino Transferase 21 U/L (5-31); Bilirubin Total 0.3 mg/dL (0.0-1.0); Blood Urea Nitrogen 16 mg/dL (9-16); Calcium 9.6 mg/dL (8.4-10.2); Carbon Dioxide 30 mmol/L (22-29); Chloride 107 mmol/L (96-108); Creatinine Clr Calc Pharmacy 71.4; Estimated Glomerular Filt Rate > 60; Glucose Random 122 mg/dL (60-115); Lipase 36 U/L (8-78); Potassium 3.5 mmol/L (3.3-5.1); Sodium 144 mmol/L (135-145); Total Protein 7.1 g/dL (6.5-8.0)
[2024-02-25 17:21] LABS: Troponin-I High Sensitivity < 2.7 ng/L (<3.5-17.0)
[2024-02-25 17:37] LABS: Influenza A PCR NEGATIVE (Negative); Influenza B PCR NEGATIVE (Negative); Resp Syncy Virus RNA Qual PCR NEGATIVE (Negative); SARS COV2 PCR INHOUSE NEGATIVE (Negative)
[2024-02-25 18:34] VITALS: BP 133/46; PULSE 75; RESP 16; TEMP 36.6; O2SAT 94
[2024-02-25] MEDS: 0.9 % Sodium Chloride 1,000 ML 999 ML IV (18:39)
[2024-02-25 19:19] LABS: Appearance Urine Clear; Color Urine Yellow; Glucose Urine UA Negative (Negative); Leukocyte Esterase Urine Trace (Negative); Nitrite Urine Positive (Negative); PH 5.5 (5.0-9.0); Specific Gravity - Urine 1.015 (1.005-1.025); UMIC TRIGGER UACC YES; Urine Blood Negative (Negative); Urine Ketones Trace mg/dL (Negative); Urine Protein Negative (Neg-Trace)
[2024-02-25 19:24] LABS: Bacteria Urine 4+ (None Seen); Hyaline Casts Urine 0-2 /LPF (0-2); RBC Urine 0-2 /HPF (0-2); UACC Culture Trigger YES; WBC Urine 0-5 /HPF (0-5)
[2024-02-25] MEDS: cefuroxime axetiL 250 MG TABLET PO (20:42)
== END 2024-02-25 21:23 | disposition home or self-care (01) ==
PROVIDERS: Physician Assistant; Emergency Provider Emergency Medicine Emergency Medical Services; PCP Internal Medicine
DX: R55 Syncope and collapse (principal); N39.0 Urinary tract infection, site not specified; Z03.818 Encounter for observation for suspected exposure to other biological agents ruled out
CPT/HCPCS: 0241U; 80053; 81001; 83690; 84484; 85025; 87086; 87088; 87186; 93005; 96360; 96361; 99284; 99285

== ENCOUNTER → 2024-02-25 16:25 | Outpatient (BNV) | payer MEDICARE, SELFPAY | PROVIDERS: Emergency Provider Emergency Medicine Emergency Medical Services; PCP Internal Medicine; Visit Provider Internal Medicine Cardiovascular Disease | DX: I44.0 Atrioventricular block, first degree (principal) | CPT/HCPCS: 93010 ==

== ENCOUNTER 2024-03-08 07:33 | Outpatient (REF) | payer MEDICARE, SELFPAY ==
[2024-03-08 11:07] LABS: Alanine Aminotransferase 18 U/L (0-31); Anion Gap 14 (12-20); Aspartate Amino Transferase 19 U/L (5-31); Blood Urea Nitrogen 12 mg/dL (9-16); Calcium 9.4 mg/dL (8.4-10.2); Carbon Dioxide 28 mmol/L (22-29); Chloride 108 mmol/L (96-108); Cholesterol 180 mg/dL (<200); Estimated Glomerular Filt Rate > 60; Glucose Fasting 100 mg/dL (60-99); HDL Cholesterol 47 mg/dL (>40); LDL Cholesterol Calculated 103 mg/dL (<100); Potassium 3.6 mmol/L (3.3-5.1); Sodium 146 mmol/L (135-145); Triglycerides 154 mg/dL (<150)
== END 2024-03-08 07:34 | disposition home or self-care (01) ==
LOC: HO.HMGCLDS 07:33
PROVIDERS: PCP Internal Medicine; Visit Provider Internal Medicine
DX: M85.851 Other specified disorders of bone density and structure, right thigh (principal); M85.852 Other specified disorders of bone density and structure, left thigh; E78.5 Hyperlipidemia, unspecified; Z78.0 Asymptomatic menopausal state
CPT/HCPCS: 36415; 80048; 80061; 82306; 84450; 84460

== ENCOUNTER 2024-03-16 09:06 | Outpatient (AMB) | payer MEDICARE, SELFPAY ==
[2024-03-16 09:29] VITALS: BP 128/70; PULSE 86; O2SAT 97; BMI 33.7
--- NOTE | 2024-03-16 09:29 | A.OFFVIS_ITS ---
Intake Vital Signs 03/16/24 09:29 Height 5 ft 2 in Weight 184 lb BMI 33.7 BP 128/70 Blood Pressure Location Lt brachial Position Sitting Pulse 86 Pulse Source Pulse Oximeter Pulse Oximetry (%) 97 Oxygen Delivery Method Room Air Intake Visit Reasons: AWV G0439 Intake Note: Pt is here today for her AWV: Last colonoscopy 2019, mammogram 12/25/23, bone density scan 12/11/21, Allergies No Known Allergies Allergy (Verified 03/30/24 02:45) Medication List - Last Reconciled 03/30/24 by Radha Melvin MD antiarthritic combination no.2 (glucosamine-chondroitin) 900 mg PO BID ascorbate calcium (vitamin C) 2 grams PO DAILY calcium carbonate (Calcium 600) 600 mg PO DAILY cholecalciferol (vitamin D3) 25 mcg PO BID gabapentin 100 mg PO DAILY PRN naproxen sodium (Aleve) 220 mg PO BID PRN omega-3 fatty acids (Fish Oil Concentrate) 1,000 mg PO DAILY pravastatin 40 mg PO DAILY HPI AWV G0439 HPI Details SWV ? 78 year old with osteopenia both hips, obesity, osteoarthritis, hyperlipidemia, polycythemia, presents for her ?subsequent Annual Wellness Visit, she is up-to-date with her screening mammogram done 12/25/2023 with normal findings, last bone density scan was done 12/11/2021 which showed presence of osteopenia in her left femoral neck and left femur normal in her lumbar spine. She no longer gets cervical cancer screenings due to her age, last colonoscopy was done 03/10/2019 which showed normal findings, no further colonoscopy as needed per Dr. Murray. She is up-to-date with her lipid screening, done 03/08/2024 with normal findings, last fasting sugar was checked 03/08/2024 which was borderline high at 100 mg/dL. She is up-to-date with her COVID vaccine but does not want to get anymore booster vaccine dose, up-to-date with Shingrix vaccination pneumonia vaccine and gets yearly flu shots. ? Medical / Social History Reviewed? Past Medical History ?Yes . ? [place] of Care / Care Team list updated ?Yes . ? Surgical/Hospitalization History ?Yes . ? Current Medications (including OTC and supplements) ?Yes . ? Family History ?Yes . ? Tobacco Control form ?Yes . ? AUDIT-C (Alcohol use) form ?Yes . ? Illicit drug use in Social History ?Yes . ? Current diagnosis of depression? ?No ? Appropriate PHQ2/PHQ9 completed ?Yes . ? Data entered by ?[employer] Instructor and reviewed by provider ? Fall Risk ? Fall History? Have you had any falls with injury in the past year? ?No . ? Have you had two or more falls in the past year? ?No . ? Fall Risk Assessment: ?No falls in the past year . ? HRA filled out by the patient, reviewed by Provider and scanned. ?SWV ? Balance? Romberg ?Yes . ? Tandem walk ?Yes . ? Walk and Turn ?Yes . ? Rise from sit to stand ?Yes . ?Vision? Corrective lens yes ? Vision screen ? Up-to-date, sees Dr. Ivis Le at [place] ?Hearing? Whisper test ?pass . ?Written Plan?Completed. See Patient Documents.? [facility] Medical History History of COVID-19 Menopause Urinary incontinence in female Tubular adenoma of colon Osteopenia of both hips Obesity Osteoarthritis Hyperlipidemia Surgical History History of cataract surgery Family History Father Unknown family medical history Mother Unknown family medical history Daughter No problems noted. Son No problems noted. Social History Household Members: Family and None Housing: Other Are you a primary special needs caregiver to a significant other at home: No Do you presently have visiting nurse or other home services: No Alcohol intake: former Patient Tobacco Use Status: Never used Tobacco e-Cigarette/Vaping Use: Never Used service: No Current occupational status: retired Cognitive needs: No Hearing needs: No Vision needs: Yes Questionnaire Medicare Wellness Checkup [age] What gender do you identify with?: female During the past 4 weeks, how much have you been bothered by emotional problems such as feeling anxious, depressed, irritable, sad or downhearted, and blue?: not at all During the past 4 weeks, has your physical & emotional health limited your social activities with family, friends, neighbors, or groups?: not at all During the past 4 weeks, how much bodily pain have you generally had?: very mild pain During the past 4 weeks, was someone available to help you if you needed & wanted help?: no, not at all During the past 4 weeks, what was the hardest physical activity you could do for at least 2 minutes?: very light Can you get to places out of walking distance without help? (For eg., can you travel alone on buses, taxis or drive your car?): Yes Can you go shopping for groceries or clothes without someone's help?: Yes Can you prepare your own meals?: Yes Can you do your housework without help?: Yes Because of any health problems, do you need the help of another person with your personal care needs such as eating, bathing, dressing or getting around the house?: No Can you handle your own money without help?: Yes During the past 4 weeks, how would you rate your health in general?: very good During the past 4 weeks how have things been going for you?: pretty well Are you having difficulties driving your car?: no Do you always fasten your seat belt when you are in a car?: yes, usually During past 4 weeks, have you been bothered by the following: never: Falling or dizzy when standing up, Sexual problems?, Trouble eating well?, Teeth or denture problems?, Problems using the telephone? and Tiredness or fatigue? Have you fallen 2 or more times in the past year?: No Are you afraid of falling?: No Are you a smoker?: no During the past 4 weeks, how many drinks of wine, beer, or other alcoholic beverages did you have?: no alcohol at all Do you exercise for about 20 minutes 3 or more times a week?: no, I usually do not exercise this much Have you been given information to help with the following?: no: Hazards in your house that might hurt you? and no: Keeping track of your medications? How often do you have trouble taking medicines the way you have been told to take them?: I always take medicine as prescribed What is your race?: White Mini Mental State Exam (MMSE) Orientation What is the (year) (season) (date) (day) (month)?: year (2023), season (Spring), date (03/16/24), day (friday) and month (march) Where are we (state) (county) (town or city) (hospital) (floor)?: state ([place]), county ([place]), town or city ([place]) and hospital/clinic ([facility]) Score Score: 9 Activity of Daily Living Bathing - sponge bath, tub bath or shower: receives no assistance (gets in/out by self, if usual bathing means Dressing - getting clothes from closets & drawers, including inner/outer garments & fasteners.: gets clothes & gets completely dressed without help Toileting - going to the 'toilet room' for urine/bowel elimination & cleaning self/arranging clothes: goes to toilet room, cleans self, arranges clothes without help Transfer: moves in & out of bed and chair without help (may use support object) Continence: controls urination/bowel movements completely by self Feeding: feeds self without help Total Score: 0 Information obtained from: patient Using telephone: independent Traveling: independent Shopping: independent Preparing meals: independent Housework: independent Taking medicine: independent Managing money: independent PHQ-9 Over the last 2 weeks, how often have you been bothered by any of the following problems? 1. Little interest or pleasure in doing things: not at all 2. Feeling down, depressed, or hopeless: not at all 3. Trouble falling or staying asleep, or sleeping too much: not at all 4. Feeling tired or having little energy: not at all 5. Poor appetite or overeating: not at all 6. Feeling bad about yourself - or that you are a failure or have let yourself or your family down: not at all 7. Trouble concentrating on things, such as reading the newspaper or watching television: not at all 8. Moving or speaking so slowly that other people could have noticed. Or the opposite - being so fidgety or restless that you have been moving around a lot more than usual: not at all 9. Thoughts that you would be better off or of hurting yourself in some way: not at all Total score: 0 Depression Screening Interpretation: Negative Depression Screening Done: Yes 18238 - PHQ-9 Billing: Yes Source: Developed by Drs. Dionicio Stiles, Kaylyn Dickerson, Colby Miller and colleagues, with an educational yoly from [employer]. Physical Exam Vital Signs: Last Vital Signs Pulse 86 03/16/24 09:29 BP 128/70 03/16/24 09:29 Pulse Ox 97 03/16/24 09:29 Oxygen Delivery Method Room Air 03/16/24 09:29 BMI result Body Mass Index 33.7 Assessment & Plan Assessment & Plan (1) Encounter for subsequent annual wellness visit (AWV) in Medicare patient: Code(s): Z00.00 - Encounter for general adult medical examination without abnormal findings Plan: Medical wellness checklist reviewed, discussed with patient and updated. Copy given. (2) Osteopenia of both hips: Code(s): M85.851 - Other specified disorders of bone density and structure, right thigh; M85.852 - Other specified disorders of bone density and structure, left thigh Plan: Continue vitamin-D and calcium supplements, and exercise regularly, stay active (3) Hyperlipidemia: Code(s): E78.5 - Hyperlipidemia, unspecified Qualifiers: Hyperlipidemia type: pure hypercholesterolemia Qualified Code(s): E78.00 - Pure hypercholesterolemia, unspecified Plan: Continue pravastatin 40 mg daily and Gilchrist 3 fatty acid supplements (4) Low back pain: Code(s): M54.5 - Low back pain Qualifiers: Back pain laterality: unspecified Chronicity: chronic Sciatica presence: unspecified whether sciatica present Qualified Code(s): M54.5 - Low back pain; G89.29 - Other chronic pain Plan: Takes Tylenol and naproxen as needed (5) Polycythemia: Code(s): D75.1 - Secondary polycythemia Plan: Monitored by [facility] Quality Reporting (2019) Depression/Bipolar (159/160/161/177) PHQ-9: Total score: 0 Coding Level of Care Code Medicare Subsequent (G0439) Diagnoses Encounter for subsequent annual wellness visit (AWV) in Medicare patient Z00.00 Osteopenia of both hips M85.851; M85.852 Pure hypercholesterolemia E78.00 Hyperlipidemia type: pure hypercholesterolemia Chronic low back pain, unspecified back pain laterality, unspecified whether sciatica present M54.5; G89.29 Back pain laterality: unspecified Chronicity: chronic Sciatica presence: unspecified whether sciatica present Polycythemia D75.1 CPT Codes Advance Care Planning - Time spent: 16-45 minutes ([id number]) Advance Care Planning Advance Care Planning discussion: Completed/Scanned Date of discussion: 03/16/24 Who was present: Patient Forms completed: Health Care Proxy (Already on file) and [facility] Time spent: 16-45 minutes Actual minutes spent: 16
== END 2024-03-16 10:16 | disposition home or self-care (01) ==
PROVIDERS: PCP Internal Medicine; Visit Provider Internal Medicine
DX: Z00.00 Encounter for general adult medical examination without abnormal findings (principal); M85.851 Other specified disorders of bone density and structure, right thigh; M85.852 Other specified disorders of bone density and structure, left thigh; E78.00 Pure hypercholesterolemia, unspecified; M54.50 Low back pain, unspecified; G89.29 Other chronic pain; D75.1 Secondary polycythemia
CPT/HCPCS: 99497; G0439

== ENCOUNTER 2024-09-01 09:23 | Outpatient (AMB) | payer MEDICARE, SELFPAY ==
--- NOTE | 2024-09-01 09:27 | MHC.OFFVIS ---
Vital Signs 09/01/24 09:31 Height 5 ft 2 in Weight 177 lb 4.026 oz BMI 32.4 BP 145/82 H Blood Pressure Location Rt brachial Position Sitting Pulse 62 Pulse Source Pulse Oximeter Pulse Oximetry (%) 96 Oxygen Delivery Method Room Air Intake Visit Reasons: LBP/cm Intake Note: Patient presents for LBP. Allergies No Known Allergies Allergy (Verified 09/01/24 09:31) Medication List - Last Reconciled 09/01/24 by Pam Chinchilla MD antiarthritic combination no.2 (glucosamine-chondroitin) 900 mg PO BID ascorbate calcium (vitamin C) 2 grams PO DAILY calcium carbonate (Calcium 600) 600 mg PO DAILY cholecalciferol (vitamin D3) 25 mcg PO BID naproxen sodium (Aleve) 220 mg PO BID PRN omega-3 fatty acids (Fish Oil Concentrate) 1,000 mg PO DAILY pravastatin 40 mg PO DAILY HPI Comments Details: 79 yoF presents for follow-up of low back pain. She was last seen 08/2023 She states that she feels about the same overall. Continues to have intermittent back pain. She not take a leave anymore. She states that she noticed a soft bump on the extensor aspect of her right 5th PIP. It is not tender or bothersome in any way. [facility] Medical History History of COVID-19 Menopause Urinary incontinence in female Tubular adenoma of colon Osteopenia of both hips Obesity Osteoarthritis Hyperlipidemia Surgical History History of cataract surgery Family History Father Unknown family medical history Mother Unknown family medical history Daughter No problems noted. Son No problems noted. Social History Household Members: Family and None Housing: Other Are you a primary patient care coordinator to a significant other at home: No Do you presently have visiting nurse or other home services: No Alcohol intake: former Patient Tobacco Use Status: Never used Tobacco e-Cigarette/Vaping Use: Never Used service: No Current occupational status: retired Cognitive needs: No Hearing needs: No Vision needs: Yes Review of Systems Musc Reports back pain and Reports arthralgias Physical Exam Vital Signs: Last Vital Signs Pulse 62 09/01/24 09:31 BP 145/82 H 09/01/24 09:31 Pulse Ox 96 09/01/24 09:31 Oxygen Delivery Method Room Air 09/01/24 09:31 BMI result Body Mass Index 32.4 Const General: cooperative, healthy appearing and comfortable Nutritional Appearance: obese Orientation/consciousness: patient oriented x3 Limitations: ambulation with cane HEENT Head: Yes normocephalic and Yes atraumatic Resp Effort & Inspection: normal respiratory effort and able to speak in complete sentences Neuro General: patient oriented x3 Extrem Other: osteoarthritic changes of both hands with no active synovitis A subtle soft tissue swelling on the sensor aspect of her right 5th PIP, not warm, tender or erythematous Negative straight leg raise test bilaterally Assessment & Plan Assessment & Plan (1) Low back pain: Code(s): M54.5 - Low back pain Category: Medical Qualifiers: Chronicity: chronic Back pain laterality: unspecified Sciatica presence: unspecified whether sciatica present Qualified Code(s): M54.5 - Low back pain; G89.29 - Other chronic pain Plan: 79-year-old female with chronic degenerative arthritis presents for follow-up. Patient discontinued gabapentin. Her symptoms are relatively stable. There Are no acute complaints today. Follow-up with PCP. Follow-up with us as needed Plan I spent 15 minutes reviewing patient's chart, evaluating patient, counseling patient and documenting in the chart Coding Level of Care Code Est Pt Level 3 (72385) Diagnoses Chronic low back pain, unspecified back pain laterality, unspecified whether sciatica present M54.5; G89.29 Chronicity: chronic Back pain laterality: unspecified Sciatica presence: unspecified whether sciatica present
[2024-09-01 09:31] VITALS: BP 145/82; PULSE 62; O2SAT 96; BMI 32.4
== END 2024-09-01 09:47 | disposition home or self-care (01) ==
LOC: HO.RHE 09:23
PROVIDERS: PCP Internal Medicine; Visit Provider Student in an Organized Health Care Education/Training Program
DX: M54.50 Low back pain, unspecified (principal); G89.29 Other chronic pain
CPT/HCPCS: 99213

== ENCOUNTER → 2024-09-01 09:23 | Outpatient (BNVA) | payer MEDICARE, SELFPAY | PROVIDERS: PCP Internal Medicine; Visit Provider Student in an Organized Health Care Education/Training Program | DX: M54.50 Low back pain, unspecified (principal); G89.29 Other chronic pain | CPT/HCPCS: 99212 ==

== ENCOUNTER 2024-11-03 07:57 | Inpatient (IN) | payer MEDICARE, SELFPAY ==
[2024-11-03] VITALS (7 sets, daily range): BP systolic 116–160; BP diastolic 57–100; PULSE 77–100; RESP 15–21; TEMP 36.7–37.6; O2SAT 90–97; BMI 32.9; BMI 29.6
--- NOTE | ~2024-11-03 | CT_ITS ---
CLINICAL HISTORY: dizziness, fall CT cervical spine without contrast Comparison: None Findings: No fracture or acute malalignment. Moderately severe degenerative change at C3-C4 and moderate additional diffuse degenerative change. Facet joints are normally imbricating. No prevertebral soft tissue edema. Partially visualized right parotid mass measuring up to 2.8 cm. This is partially seen on head CT from 2020. Lung apices are clear. Impression: No acute fracture or acute malalignment. Incompletely evaluated right parotid mass although this was present in 2020. This document has been electronically signed by: Jose Fulton MD on 11/03/2024 10:05:44
--- NOTE | ~2024-11-03 | CT_ITS ---
CLINICAL HISTORY: dizziness, fall CT head without contrast Comparison: CT - CT HEAD/BRAIN WO CON - 10/23/20 09:23 EST Findings: No intra-axial mass, midline shift, hydrocephalus. Reference coronal image 101, there is asymmetric thickening along the left tentorium. Calcified meningioma along the anterior left falx, unchanged. Probable additional meningioma along the anterior left tentorium, coronal 94. No significant atrophy-like change or white matter disease. There is no sinus or mastoid fluid. The orbits are within normal limits. No skull fracture. IMPRESSION: Abnormal high density thickening along the left tentorium, not present on the comparison study. Findings may reflect a very small subdural hematoma. Interval follow-up CT recommended within 24 hours to confirm stability. This document has been electronically signed by: Jose Fulton MD on 11/03/2024 10:01:00
--- NOTE | ~2024-11-03 | CT_ITS ---
CLINICAL HISTORY: dizziness, fall CT of the head without intravenous contrast Comparison: CT/SR - CT HEAD/BRAIN WO IV CON - 11/03/24 08:58 EST Findings: The ventricles and sulci are prominent, consistent with generalized cerebral parenchymal volume loss. The ventricles are symmetric and the basilar cisterns are intact. Mild periventricular, deep and subcortical white matter hypodensities are nonspecific but statistically reflect the sequela of chronic small vessel ischemic change.Stable left frontal parafalcine and left tentorial calcified meningiomasThe hyperdensity along the left tentorium measuring 2.6 mm in thickness previously measuring 4 mm is less conspicuous suspect a resolving subdural hematoma. No evidence of acute large vessel or territorial ischemia. Brainstem and cerebellum unremarkable. Vascular calcifications indicate intracranial atherosclerosis. The imaged portion of the paranasal sinuses are clear. No mastoid effusions are demonstrated. The orbital contents are unremarkable. Calvarium is intact. Impression: 1. Gradual resolution of the hyperdense subdural hematoma left tentorium.No midline shift mass effect or herniation. Stable left frontal parafalcine and left tentorial calcified meningiomas 2. Cerebral volume loss, intracranial atherosclerotic disease and mild sequela of chronic small vessel ischemic disease. This document has been electronically signed by: Flakito Rodriguez MD on 11/04/2024 12:08:53
--- NOTE | ~2024-11-03 | XR_ITS ---
CLINICAL HISTORY: dizziness, fall 1 view chest x-ray. Comparison: CR - XR CHEST 1V - 10/23/20 08:14 EST Findings: The lungs are adequately expanded. No focal confluent opacity. No effusion or pneumothorax. Cardiac and mediastinal contours are within normal limits. No acute osseous abnormality Impression: No acute process. This document has been electronically signed by: Jose Fulton MD on 11/03/2024 08:56:36
--- NOTE | 2024-11-03 08:11 | ECG_ITS ---
Test Reason : DIZZINESS Blood Pressure : / mmHG Vent. Rate : 081 BPM Atrial Rate : 081 BPM P-R Int : 198 ms QRS Dur : 084 ms QT Int : 420 ms P-R-T Axes : 040 -28 038 degrees QTc Int : 487 ms Normal sinus rhythm Cannot rule out Anterior infarct , age undetermined Abnormal ECG When compared with ECG of 25-FEB-2024 16:48, Premature atrial complexes are no longer Present Nonspecific T wave abnormality now evident in Anterolateral leads QT has lengthened Referred By: Generic ED Physician Electronically Signed By:ÓSCAR COTTRELL MD
--- NOTE | 2024-11-03 08:22 | ED_ITS ---
HPI - General Adult General Chief complaint: Fall Stated complaint: NAUSEA VOMITING FALL Time Seen by Provider: 11/03/24 08:18 Source: patient, family (patient's daughter) and EMS Mode of arrival: EMS Limitations: no limitations History of Present Illness ED Provider: Berta Waller PA-C HPI narrative: Patient is an 79 year old assigned female at with a history of HLD and OA presenting to the emergency department today with dizziness, nausea, vomiting, diarrhea, and a fall. Patient states that over the last 24 hours she has been generally unwell with nausea, vomiting, and diarrhea. Patient states that she had a large diarrhea bowel movement, stood up, got dizzy, and fell. Patient states that she couldn't get herself up because of her arthritic pain and dizziness. Patient states that her son has also been sick with a similar illness. Patient denies any lightheadedness, abdominal pain, fever, chills, blurry vision, double vision, loss of vision, chest pain, difficulty breathing, shortness of breath, back pain, night sweats, pain with urination, increased urinary frequency, increased urinary urgency, blood in her urine or stool, syncope or a near syncopal episode, recent trauma or falls, bowel incontinence, bladder incontinence, or any other complaints at this time. Relieving factors: none Exacerbating factors: none Associated symptoms: nausea/vomiting Treatments prior to arrival: none Related Data Home Medications ?Medication ?Instructions ?Recorded ?Confirmed antiarthritic combination no.2 900 900 mg PO BID 08/15/20 11/03/24 mg tablet (glucosamine-chondroitin) calcium carbonate (Calcium 600) 600 mg PO DAILY 08/15/20 11/03/24 cholecalciferol (vitamin D3) 25 25 mcg PO BID 08/15/20 11/03/24 mcg (1,000 unit) capsule omega-3 fatty acids 1,000 mg 1,000 mg PO DAILY 08/15/20 11/03/24 capsule (Fish Oil Concentrate) ascorbate calcium (vitamin C) 500 2 g PO DAILY 01/28/22 11/03/24 mg tablet acetaminophen 325 mg tablet 650 mg PO Q4H PRN ARTHRITIS 11/03/24 11/03/24 Previous Rx's ?Medication ?Instructions ?Recorded pravastatin 40 mg tablet 40 mg PO DAILY #90 tabs 07/05/24 Allergies Allergy/AdvReac Type Severity Reaction Status Date / Time No Known Allergies Allergy Verified 11/03/24 08:05 Review of Systems 2 Constitutional: Constitutional: Reports no additional constitutional complaints, Denies chills, Denies fever(s) and Denies night sweats Eyes: Eyes: Reports no additional eye complaints, Denies blurry vision, Denies change in vision, Denies diplopia, Denies eye discharge, Denies loss of vision and Denies eye pain ENT: Reports dizziness Cardiovascular: Cardiovascular: Reports no additional cardiovascular complaints, Denies chest pain, Denies lightheadedness, Denies Loss of Consciousness and Denies dyspnea Respiratory: Respiratory: Reports no additional respiratory complaints and Denies dyspnea Gastrointestinal: Gastrointestinal: Reports no additional gastrointestinal complaints, Denies abdominal pain, Denies melena, Denies hematochezia, Reports change in bowel habits, Reports change in stool character, Reports diarrhea, Reports nausea and Reports vomiting Genitourinary: Genitourinary: Denies hematuria, Denies urinary frequency, Denies dysuria, Denies urinary incontinence, Denies urinary hesitancy and Denies urinary urgency Musculoskeletal: Musculoskeletal: Reports no additional musculoskeletal complaints, Denies numbness and Denies tingling Neurologic: Reports dizziness, Denies loss of vision, Denies numbness and Denies tingling Psychiatric: Psychiatric: Reports no additional psychiatric complaints Endocrine: Endocrine: Reports no additional endocrine complaints Hematologic/Lymphatic: Hematologic/Lymphatic: Reports no additional hematologic/lymphatic complaints Allergic/Immunologic: Allergic/Immunologic: Reports no additional allergic/immunologic complaints PMFSH Past Medical History Attestation statement: The following information was validated with the patient. (all information validated with the patient's daughter) Source: old records reviewed, obtained from family (patient's daughter provided additional history and confirmed the history provided by the patient) and nursing notes reviewed Medical History History of COVID-19 Menopause Urinary incontinence in female Tubular adenoma of colon Osteopenia of both hips Obesity Osteoarthritis Hyperlipidemia Surgical History History of cataract surgery Family History Family History Father Unknown family medical history Mother Unknown family medical history Daughter No problems noted. Son No problems noted. Social History Social History Household Members: Family and None Housing: Other Are you a primary lawn caretaker to a significant other at home: No Do you presently have visiting nurse or other home services: No Alcohol intake: former Patient Tobacco Use Status: Never used Tobacco Smoked in Last 30 Days: No e-Cigarette/Vaping Use: Never Used Use of substances other than those prescribed or required for medical reasons: No Advance Directives: No Advance Directives Information Provided: No Do you have a plan to hurt others: No Plan service: No Current occupational status: retired Cognitive needs: No Hearing needs: No Vision needs: Yes Physical Exam ED Vital Signs: Vital Signs - 24 hr 11/03/24 08:04 11/03/24 09:08 11/03/24 11:22 Temperature 98.1 F Pulse Rate 77 79 84 Respiratory Rate 18 17 21 H Blood Pressure 131/68 125/77 149/77 H Pulse Oximetry 97 95 95 Oxygen Delivery Method Room Air Room Air Room Air BMI result Body Mass Index 32.9 Const General: cooperative, no acute distress, alert and awake Nutritional Appearance: well nourished Orientation/consciousness: patient oriented x3 Limitations: no limitations HENMT Head: Yes normal to inspection and Yes atraumatic Ears: hearing grossly normal bilaterally and external ears normal General nose exam: Normal external nose present, no nasal discharge noted and no epistaxis Face and sinus: Yes normal facial exam, No abrasion and No laceration Mouth: Normal oral and palatal mucosa present, no drooling and no muffled voice Eyes General: appearance normal, both eyes and all related structures Periorbital: periorbital findings normal Eyelids: Yes eyelids normal Conjunctivae: conjunctivae normal Pupils: Equal, round and reactive pupils present EOM: EOMs intact bilaterally Neck Neck: Yes normal visual inspection, Yes full ROM and Yes no lymphadenopathy Chest Chest palpation & inspection: normal inspection of the chest Resp Effort & Inspection: normal respiratory effort and able to speak in complete sentences GI Inspection: Yes normal to inspection Neuro General: patient oriented x3 and moves all extremities Cranial nerves: Yes Equal, round and reactive pupils present Cognition (Neuro): normal cognition Extrem General: Yes normal to inspection, Yes full ROM and Yes capillary refill normal Psych Appearance: grossly normal Mental Status: mental status grossly normal Affect: normal affect Attitude: cooperative Thought process: Normal thought process present Thought content: Normal thought content present Insight: Good insight present (Psych) NIH Stroke Scale Internal: Initial- Upon Arrival Time: 08:03 Level of Consciousness: Alert Level of Consciousness Questions: Answers both questions correctly Level of Consciousness Commands: Performs both tasks correctly Best Gaze: Normal Visual: No visual loss Facial Palsy: Normal Motor Arm (Right): No drift Motor Arm (Left): No drift Motor Leg (Right): No drift Motor Leg (Left): No drift Limb Ataxia: Absent Sensory: Normal Best Language: No aphasia Dysarthia: Normal Extinction and Inattention: No abnormality Score: 0 Course Consultations Consultation #1: I spoke to Dr. Gallardo at [facility], the trauma surgeon risk reduction counselor. She recommended medically admitting the patient here for close observation. If the patient were to have any acute changes, repeat the head CT and reach back out to the trauma service at [facility]. Time: 10:45 Medications Administered Discontinued Medications Generic Name Dose Route Start Last Admin Trade Name Freq PRN Reason Stop Dose Admin Sodium Chloride 1,000 mls @ 999 mls/hr 11/03/24 08:45 11/03/24 10:25 Ns IV 11/03/24 09:45 Infused .Q1H1M ABIGAIL Infusion Medical Decision Making Medical Decision Making MDM Narrative: Patient is an 79 year old assigned female at with a history of HLD and OA presenting to the emergency department today with dizziness, nausea, vomiting, diarrhea, and a fall. Patient's physical exam was as noted in the physical exam portion of this note. Patient's blood work showed an elevated WBC count of 11.1. Patient's EKG was unremarkable. Patient's chest x-ray showed no acute process. Patient's CT c-spine was negative for any acute process. Patient's CT head showed a left subdural hematoma. I called and spoke to Dr. Gallardo the trauma surgeon at [facility] who recommended medical admission and observation here at [facility] and offered to speak to our hospitalist service about her recommendations. Additionally, she stated if need be, the hospitalist team could reach out to her and they'd discuss transfer. I discussed this with the hospitalist team who agreed to admission. I explained my physical exam findings as well as all test results to the patient and the patient's aughter. I answered all questions asked by the patient and the patient's daughter. Patient and the patient's daughter verbalized agreement and understanding with this treatment plan and admission. Differential Diagnosis Differential Diagnoses: The differential diagnosis associated with the presentation includes Fall Subdural hematoma Subarachnoid hemorrhage Gastroenteritis Dizziness Admission/Observation Consideration of admission/observation: Escalation of care including admission/observation considered Patient admitted as noted in the MDM Rationale portion of this note. Consult Healthcare Provider Management of the patient was discussed with: Hospitalist (agreed to admission as noted in the MDM Rationale portion of this note.) and Steward/Stewardess Dining Room (spoke to Dr. Gallardo as noted in the MDM Rationale portion of this note.) Lab Data [facility] Lab Attestation statement: I reviewed the patient's lab results. My interpretation of these results are in the MDM Rationale portion of this note. 11/03/24 08:22 11/03/24 08:22 Labs: Lab Results 11/03/24 Range/Units 08:22 WBC 11.1 H (4.8-10.8) X10*3/uL RBC 5.36 (4.20-5.50) X10*6/uL Hgb 17.6 H (12.0-16.0) g/dl Hct 49.2 H (37.0-47.0) % MCV 91.8 (80.0-98.0) fL MCH 32.8 (27.0-33.0) pg MCHC 35.8 H (31.0-35.0) g/dl RDW 11.9 (11.0-16.0) % Plt Count 200 (160-400) X10*3/uL MPV 9.4 (9.4-12.3) fL Immature Gran % (Auto) 0.4 (0.0-0.4) % Neut % (Auto) 93.5 H (45-73) % Lymph % (Auto) 3.6 L (20-40) % Curry % (Auto) 2.3 (2-11) % Eos % (Auto) 0.1 (0-4) % Baso % (Auto) 0.1 (0-2) % Lymph # (Auto) 0.4 L (1.2-4.9) X10*3/uL Curry # (Auto) 0.3 (0.1-1.2) X10*3/uL Eos # (Auto) 0.0 (0.0-0.4) X10*3/uL Baso # (Auto) 0.0 (0.0-0.2) X10*3/uL Abs Immat Gran (auto) 0.05 H (0.00-0.03) X10*3/uL Absolute Neuts (auto) 10.4 H (2.0-8.3) x10*3/uL Absolute Nucleated RBC 0.000 (0.0-0.012) X10*3/uL Nucleated RBC % (auto) 0.0 (0.0-0.2) /100WBC Smear Tech's Comments VERIFIED Sodium 146 H (135-145) mmol/L Potassium 3.6 (3.3-5.1) mmol/L Chloride 109 H (96-108) mmol/L Carbon Dioxide 25 (22-29) mmol/L Anion Gap 16 (12-20) BUN 12 (9-16) mg/dL Creatinine 0.74 (0.5-1.4) mg/dL Estim Creat Clear Calc 60.0 Estimated GFR > 60 Random Glucose 130 H (60-115) mg/dL Calcium 9.1 (8.4-10.2) mg/dL Magnesium 2.1 (1.6-2.6) mg/dL Total Bilirubin 0.5 (0.0-1.0) mg/dL AST 24 (5-31) U/L ALT 21 (0-31) U/L Alkaline Phosphatase 75 (39-117) U/L Total Creatine Kinase 39 (26-140) U/L Troponin I High Sens < 2.7 (<3.5-17.0) ng/L Total Protein 7.1 (6.5-8.0) g/dL Albumin 4.1 (3.5-5.0) g/dL Independent Interpretation I performed an independent interpretation of an: EKG, Plain X-Ray and CT Scan Interpretation: My interpretation is in agreement with the radiologist's impression of these imaging studies. L CLINICAL HISTORY: dizziness, fall 1 view chest x-ray. Comparison: CR - XR CHEST 1V - 10/23/20 08:14 EST Findings: The lungs are adequately expanded. No focal confluent opacity. No effusion or pneumothorax. Cardiac and mediastinal contours are within normal limits. No acute osseous abnormality Impression: No acute process. This document has been electronically signed by: Jose Fulton MD on 11/03/2024 08:56:36 Dictated By: Jose Fulton MD Signed By: Electronically signed by Jose Fulton MD 11/03/24 0858 Report Number: [id number]: Total DLP = 639.00 mGy-cm CLINICAL HISTORY: dizziness, fall CT head without contrast Comparison: CT - CT HEAD/BRAIN WO CON - 10/23/20 09:23 EST Findings: No intra-axial mass, midline shift, hydrocephalus. Reference coronal image 101, there is asymmetric thickening along the left tentorium. Calcified meningioma along the anterior left falx, unchanged. Probable additional meningioma along the anterior left tentorium, coronal 94. No significant atrophy-like change or white matter disease. There is no sinus or mastoid fluid. The orbits are within normal limits. No skull fracture. IMPRESSION: Abnormal high density thickening along the left tentorium, not present on the comparison study. Findings may reflect a very small subdural hematoma. Interval follow-up CT recommended within 24 hours to confirm stability. This document has been electronically signed by: Jose Fulton MD on 11/03/2024 10:01:00 Dictated By: Jose Fulton MD Signed By: Electronically signed by Jose Fulton MD 11/03/24 1001 Report Number: [id number]: Total DLP = 319.00 mGy-cm CLINICAL HISTORY: dizziness, fall CT cervical spine without contrast Comparison: None Findings: No fracture or acute malalignment. Moderately severe degenerative change at C3-C4 and moderate additional diffuse degenerative change. Facet joints are normally imbricating. No prevertebral soft tissue edema. Partially visualized right parotid mass measuring up to 2.8 cm. This is partially seen on head CT from 2019. Lung apices are clear. Impression: No acute fracture or acute malalignment. Incompletely evaluated right parotid mass although this was present in 2019. This document has been electronically signed by: Jose Fulton MD on 11/03/2024 10:05:44 Dictated By: Jose Fulton MD Signed By: Electronically signed by Jose Fulton MD 11/03/24 1006 Vent. Rate: 081 BPM Atrial Rate: 081 BPM P-R Int: 198 ms QRS Dur: 084 ms QT Int: 420 ms P-R-T Axes: 040 -28 038 degrees QTc Int: 487 ms Normal sinus rhythm Cannot rule out Anterior infarct, age undetermined When compared with ECG of 25-FEB-2024 16:48, Premature atrial complexes are no longer Present Nonspecific T wave abnormality now evident in Anterolateral leads QT has lengthened Radiology Impression Discussion of test interpretation with radiology: I have reviewed the radiologist's reading. Independent Historian Clinical information obtained from an independent historian. History obtained from or confirmed by: EMS (EMS provided additional history and confirmed the history provided by the patient.) and Other (patient's daughter provided additional history and confirmed the history provided by the patient.) Critical Care Time Critical Care Time Critical Care Time: Yes Total Critical Care Time: 51 Attestation: I spent 51 minutes of Critical Care Time with this patient. This does not include time spent on separately reported billable procedures. Discharge Plan Discharge Clinical Impression: Dizziness, Diarrhea, Subdural hematoma Patient Disposition: Admitted As Inpatient
--- NOTE | 2024-11-03 08:26 | PC.NURSE ---
20G peripheral IV inserted to pt.'s RAC. Tolerated well. Good blood return, and flushes without difficulty or discomfort per pt.
[2024-11-03 08:27] LABS: Basophils Percent Auto 0.1 % (0-2); Eosinophils Percent Auto 0.1 % (0-4); Hematocrit 49.2 % (37.0-47.0); Hemoglobin 17.6 g/dl (12.0-16.0); Imm Gran Abs Auto 0.05 X10*3/uL (0.00-0.03); Imm Gran Pct Auto 0.4 % (0.0-0.4); Lymphocytes Absolute Auto 0.4 X10*3/uL (1.2-4.9); Lymphocytes Percent Auto 3.6 % (20-40); MANUAL DIFF FLAG SCAN; Mean Corpuscular HGB Conc 35.8 g/dl (31.0-35.0); Mean Corpuscular Hemoglobin 32.8 pg (27.0-33.0); Mean Corpuscular Volume 91.8 fL (80.0-98.0); Mean Platelet Volume 9.4 fL (9.4-12.3); Monocytes Absolute Auto 0.3 X10*3/uL (0.1-1.2); Monocytes Percent Auto 2.3 % (2-11); Neutrophils Absolute Auto 10.4 x10*3/uL (2.0-8.3); Neutrophils Percent Auto 93.5 % (45-73); Platelet Count 200 X10*3/uL (160-400); Red Blood Count 5.36 X10*6/uL (4.20-5.50); Red Cell Distribution Width 11.9 % (11.0-16.0); SCAN SMEAR FLAG 1; White Blood Count 11.1 X10*3/uL (4.8-10.8)
[2024-11-03 08:48] LABS: Troponin-I High Sensitivity < 2.7 ng/L (<3.5-17.0)
[2024-11-03 08:54] LABS: Alanine Aminotransferase 21 U/L (0-31); Albumin Level 4.1 g/dL (3.5-5.0); Alkaline Phosphatase 75 U/L (39-117); Anion Gap 16 (12-20); Aspartate Amino Transferase 24 U/L (5-31); Bilirubin Total 0.5 mg/dL (0.0-1.0); Blood Urea Nitrogen 12 mg/dL (9-16); Calcium 9.1 mg/dL (8.4-10.2); Carbon Dioxide 25 mmol/L (22-29); Chloride 109 mmol/L (96-108); Estimated Glomerular Filt Rate > 60; Glucose Random 130 mg/dL (60-115); Magnesium 2.1 mg/dL (1.6-2.6); Potassium 3.6 mmol/L (3.3-5.1); Sodium 146 mmol/L (135-145); Total Protein 7.1 g/dL (6.5-8.0)
[2024-11-03 08:57] LABS: SLIDE REVIEW VERIFIED
[2024-11-03] MEDS: 0.9 % Sodium Chloride 1,000 ML 999 ML IV (09:07)
--- NOTE | 2024-11-03 12:57 | PHA.MEDREC ---
Pharmacy Consult ? Medication Reconciliation Pharmacy has completed the medication reconciliation. PAtient confirmed to only be on pravastatin and OTCs
--- NOTE | 2024-11-03 13:45 | P.HPHOSP_ITS ---
History of Present Illness Date of Service: 11/03/24 Chief Complaint: Fall 79-year-old woman presented to the ER after a fall at home. Reported around 04:00 o'clock this morning she got up to use the bathroom and she vomited. She went back to her room and a 2nd time had to get up and had an episode diarrhea. She did have difficulty getting up from the toilet but was able to get back to her room. She got up 3rd time and just when she got to the door of her bedroom she felt lightheaded and fell to the ground. She denied any loss of consciousness and was unsure if she hit her head. She did have a phone in her hand and arms were able to call her son who came and called EMS. Patient reported she had been in her usual state of health just prior to this. She does report a history of vertigo most of her life off and on. She denied any chest pain, shortness of breath, visual changes, headache, fever, chills. In the ER, head CT noted a very small subdural hematoma, ED provider spoke with trauma at [facility] who recommended keeping for observation, no need to transfer to tertiary care facility. All of her labs were within acceptable limits, vital signs stable, no noted orthostasis. In the ER she received 1 L of IV fluid. He was alert and oriented x3 and conversing normally. Plan will be to admit patient to monitor subdural hematoma. Review of Systems 2 Review of Systems: Denies any recent fever chills or decrease in appetite respiratory denies any shortness of breath or cough cardiovascular denies chest pain gastrointestinal denies any dysphagia abdominal pain nausea vomiting or diarrhea genitourinary denies any dysuria frequency or hematuria musculoskeletal denies any joint pain or swelling neuropsych denies any weakness or seizures all other systems reviewed are negative PENDING SALE TO [facility] Medical History History of COVID-19 Menopause Urinary incontinence in female Tubular adenoma of colon Osteopenia of both hips Obesity Osteoarthritis Hyperlipidemia Family History Father Unknown family medical history Mother Unknown family medical history Daughter No problems noted. Son No problems noted. Surgical History History of cataract surgery Social History Household Members: Family and None Housing: Other Are you a primary special needs child caregiver to a significant other at home: No Do you presently have visiting nurse or other home services: No Alcohol intake: former Patient Tobacco Use Status: Never used Tobacco Smoked in Last 30 Days: No e-Cigarette/Vaping Use: Never Used Use of substances other than those prescribed or required for medical reasons: No Advance Directives: No Advance Directives Information Provided: No Do you have a plan to hurt others: No Plan service: No Current occupational status: retired Cognitive needs: No Hearing needs: No Vision needs: Yes Meds Allergies Allergy/AdvReac Type Severity Reaction Status Date / Time No Known Allergies Allergy Verified 11/03/24 08:05 Active Medications: Current Medications Acetaminophen (Acetaminophen 325 Mg Tablet) 650 mg PO Q6H PRN PRN Reason: Pain, Mild 1-3,fever,headache Calcium Carbonate (Calcium Carbonate 750 Mg Tab.Chew) 750 mg PO Q4H PRN PRN Reason: Heartburn Magnesium Hydroxide (Milk Of Magnesia 30 Ml Oral.Susp) 30 ml PO DAILY PRN PRN Reason: Constipation Melatonin (Melatonin 3 Mg Tablet) 6 mg PO BEDTIME PRN PRN Reason: Insomnia Ondansetron HCl (Ondansetron Hcl 4 Mg/2 Ml Vial) 4 mg IVPUSH Q8H PRN PRN Reason: Nausea and Vomiting Sodium Chloride (0.9 % Sodium Chloride Flush 3 Ml Syringe) [facility] Medications ?Medication ?Instructions ?Recorded ?Confirmed ?Last Taken ?Type antiarthritic combination no.2 900 900 mg PO BID 08/15/20 11/03/24 Unknown History mg tablet (glucosamine-chondroitin) calcium carbonate (Calcium 600) 600 mg PO DAILY 08/15/20 11/03/24 Unknown History cholecalciferol (vitamin D3) 25 25 mcg PO BID 08/15/20 11/03/24 Unknown History mcg (1,000 unit) capsule omega-3 fatty acids 1,000 mg 1,000 mg PO DAILY 08/15/20 11/03/24 Unknown History capsule (Fish Oil Concentrate) ascorbate calcium (vitamin C) 500 2 g PO DAILY 01/28/22 11/03/24 Unknown History mg tablet acetaminophen 325 mg tablet 650 mg PO Q4H PRN ARTHRITIS 11/03/24 11/03/24 Unknown History Physical Exam 2 Vital Signs and Narrative: Vital Signs: Last Vital Signs Temp 98.1 F 11/03/24 08:04 Pulse 84 11/03/24 11:22 Resp 21 H 11/03/24 11:22 BP 149/77 H 11/03/24 11:22 Pulse Ox 95 11/03/24 11:22 O2 Del Method Room Air 11/03/24 11:22 BMI result Body Mass Index 32.9 Appearing in no acute distress head is normocephalic atraumatic eyes pupils are PERRLA sclera is anicteric mouth throat mucous membranes are intact and moist neck is supple no lymphadenopathy, no JVD noted lung sounds are clear to auscultation heart regular rate rhythm, clear S1, S2 positive bowel sounds, abdomen is soft, nontender neuro patient is alert x3, no focal deficits Results Labs 11/03/24 08:22 11/03/24 08:22 Labs: Laboratory Results - last 24 hr 11/03/24 08:22 MCV 91.8 MCH 32.8 MCHC 35.8 H RDW 11.9 Plt Count 200 MPV 9.4 Immature Gran % (Auto) 0.4 Neut % (Auto) 93.5 H Lymph % (Auto) 3.6 L Dillon % (Auto) 2.3 Eos % (Auto) 0.1 Baso % (Auto) 0.1 Lymph # (Auto) 0.4 L Dillon # (Auto) 0.3 Eos # (Auto) 0.0 Baso # (Auto) 0.0 Abs Immat Gran (auto) 0.05 H Absolute Neuts (auto) 10.4 H Absolute Nucleated RBC 0.000 Nucleated RBC % (auto) 0.0 Smear Tech's Comments VERIFIED Anion Gap 16 Estim Creat Clear Calc 60.0 Estimated GFR > 60 Random Glucose 130 H Calcium 9.1 Magnesium 2.1 Total Bilirubin 0.5 AST 24 ALT 21 Alkaline Phosphatase 75 Total Creatine Kinase 39 Troponin I High Sens < 2.7 Total Protein 7.1 Albumin 4.1 Assessment and Plan (1) Diarrhea: Status: Acute (2) Subdural hematoma: Status: Acute Plan 79-year-old woman admitted with dizziness, nausea, vomiting, diarrhea and fall. Subsequently found to have small subdural hematoma Small subdural hematoma ED provider discussed with trauma it at [facility], no need for transfer Repeat head CT in the a.m. No antiplatelet or anticoagulation for now Monitor neuro status Diarrhea Question viral illness will give one liter IV fluid for now stool panel, RPP ordered ua Hyperlipidemia Continue statin DVT prophylaxis with pneumatic compression boots due to subdural hematoma Full code Quality Stroke Does the patient have a stroke diagnosis?: No VTE Prior VTE?: No VTE Risk Level:: Medical - moderate - high VTE Device Contraindication: N/A - Device Ordered VTE Drug Contraindication: Treatment Not Indicated
[2024-11-03] MEDS: 0.9 % Sodium Chloride 1,000 ML 75 ML IVCONT (18:05)
[2024-11-03 22:10] LABS: Appearance Urine Clear; Color Urine Yellow; Glucose Urine UA Negative (Negative); Leukocyte Esterase Urine Moderate (2+) (Negative); Nitrite Urine Positive (Negative); PH 6.5 (5.0-9.0); Specific Gravity - Urine 1.015 (1.005-1.025); UMIC TRIGGER UACC YES; Urine Blood Negative (Negative); Urine Ketones 40 mg/dL (Negative); Urine Protein Negative (Neg-Trace)
[2024-11-03 22:15] LABS: Bacteria Urine 4+ (None Seen); Hyaline Casts Urine 0-2 /LPF (0-2); RBC Urine 0-2 /HPF (0-2); UACC Culture Trigger YES; WBC Urine 21-50 /HPF (0-5)
[2024-11-04] VITALS (7 sets, daily range): BP systolic 100–123; BP diastolic 45–95; PULSE 60–95; RESP 18–20; TEMP 36.6–37.2; O2SAT 93–96
[2024-11-04 07:13] LABS: Hematocrit 40.3 % (37.0-47.0); Mean Corpuscular HGB Conc 34.7 g/dl (31.0-35.0); Mean Corpuscular Hemoglobin 32.6 pg (27.0-33.0); Mean Corpuscular Volume 93.9 fL (80.0-98.0); Mean Platelet Volume 9.9 fL (9.4-12.3); Platelet Count 169 X10*3/uL (160-400); Red Blood Count 4.29 X10*6/uL (4.20-5.50); Red Cell Distribution Width 12.5 % (11.0-16.0)
[2024-11-04] MEDS: Pravastatin Sodium 40 MG TABLET PO (07:28)
[2024-11-04 07:34] LABS: Alanine Aminotransferase 17 U/L (0-31); Albumin Level 3.2 g/dL (3.5-5.0); Alkaline Phosphatase 52 U/L (39-117); Anion Gap 10 (12-20); Aspartate Amino Transferase 28 U/L (5-31); Bilirubin Total 0.3 mg/dL (0.0-1.0); Blood Urea Nitrogen 9 mg/dL (9-16); Calcium 7.8 mg/dL (8.4-10.2); Carbon Dioxide 23 mmol/L (22-29); Chloride 113 mmol/L (96-108); Creatinine Clr Calc Pharmacy 58.4; Estimated Glomerular Filt Rate > 60; Glucose Random 88 mg/dL (60-115); Potassium 3.2 mmol/L (3.3-5.1); Sodium 143 mmol/L (135-145); Total Protein 5.4 g/dL (6.5-8.0)
[2024-11-04] MEDS: Acetaminophen 325 MG TABLET 650 MG PO ×2 (07:35→16:43)
--- NOTE | 2024-11-04 08:34 | MHC.CM.PN ---
CM met with Patient at bedside and addressed IMM with her verbally (she is on contact precautions); original was given to Patient and a copy has been placed on the chart. Patient lives with her Son/HCP/Raza and her Daughter in a trailer and she uses a cane to assist with mobility. Patient has contacted herself, but does not feel that she will need VNA nor STR at time of dc. CM has initiated and will follow for dc planning. PCP is Dr. Radha Melvin and Son will transport to home.
[2024-11-04 09:24] LABS: Adenovirus PCR Not Detected (Not Detect.); Bordetella parapertussis PCR Not Detected (Not Detect.); Bordetella pertussis PCR Not Detected (Not Detect.); Chlamydia pneumoniae PCR Not Detected (Not Detect.); Coronavirus 229E PCR Not Detected (Not Detect.); Coronavirus HKU1 PCR Not Detected (Not Detect.); Coronavirus NL63 PCR Not Detected (Not Detect.); Coronavirus OC43 PCR Not Detected (Not Detect.); Human metapneumovirus PCR Not Detected (Not Detect.); Influenza A PCR Not Detected (Not Detect.); Influenza B PCR Not Detected (Not Detect.); Mycoplasma pneumoniae PCR Not Detected (Not Detect.); Parainfluenza 1 PCR Not Detected (Not Detect.); Parainfluenza 2 PCR Not Detected (Not Detect.); Parainfluenza 3 PCR Not Detected (Not Detect.); Parainfluenza 4 PCR Not Detected (Not Detect.); RSV PCR Not Detected (Not Detect.); Rhino/Enterovirus PCR Not Detected (Not Detect.)
[2024-11-04] MEDS: Potassium Chloride Packet 20 MEQ PACKET 40 MEQ PO ×2 (09:28→20:18)
[2024-11-04] MEDS: cefTRIAXone sodium 1 GM VIAL IVPUSH (09:28)
[2024-11-04 09:30] LABS: SARS-CoV-2 PCR Not Detected (Not Detect.)
--- NOTE | 2024-11-04 10:23 | P.PNIM_ITS ---
Subjective Subjective Date of Service: 11/04/24 Interval History: Seen and examined this morning Follow-up for nausea/vomiting/diarrhea, fall resulting in subdural hematoma feeling much better but has not walked on her own no abdominal pain, no further diarrhea or vomiting since admission no dizziness, vision changes, headache Review of Systems Review of Systems: Yes all other systems are reviewed and are negative Constitutional Constitutional: Denies chills and Denies fever(s) ENT Ears, Nose, Mouth, and Throat: Denies dizziness Cardiovascular Cardiovascular: Denies chest pain Gastrointestinal Gastrointestinal: Denies abdominal pain, Denies diarrhea, Denies nausea and Denies vomiting Neurologic Neurologic: Denies dizziness Physical Exam 2 Vital Signs: Vital Signs: Last Vital Signs Temp 98.3 F 11/04/24 07:25 Pulse 84 11/04/24 07:25 Resp 18 11/04/24 07:25 BP 109/56 L 11/04/24 07:25 Pulse Ox 93 11/04/24 07:25 O2 Del Method Room Air 11/04/24 07:25 BMI result Body Mass Index 29.6 Const: General: cooperative, comfortable, no acute distress, alert and awake Nutritional Appearance: well nourished Orientation/consciousness: patient oriented x3 Resp: Effort & Inspection: normal respiratory effort and no respiratory distress Auscultation: clear to auscultation bilaterally Cardio: Rate: regular rate Rhythm: regular rhythm GI: Palpation (GI): Soft to palpation and nontender Neuro: General: patient oriented x3, moves all extremities and CN's II-XI intact bilaterally Cranial nerves: Yes CN's II-XII intact bilaterally Extrem: General: Yes normal to inspection Objective Data Active Medications Acetaminophen (Acetaminophen 325 Mg Tablet) 650 mg PO Q6H PRN PRN Reason: Pain, Mild 1-3,fever,headache Last Admin: 11/04/24 07:35 Dose: 650 mg Documented By: FREDO Calcium Carbonate (Calcium Carbonate 750 Mg Tab.Chew) 750 mg PO Q4H PRN PRN Reason: Heartburn Ceftriaxone Sodium (Ceftriaxone Sodium 1 Gm Vial) 1 gm IVPUSH Q24H ABIGAIL Last Admin: 11/04/24 09:28 Dose: 1 gm Documented By: FREDO Magnesium Hydroxide (Milk Of Magnesia 30 Ml Oral.Susp) 30 ml PO DAILY PRN PRN Reason: Constipation Melatonin (Melatonin 3 Mg Tablet) 6 mg PO BEDTIME PRN PRN Reason: Insomnia Ondansetron HCl (Ondansetron Hcl 4 Mg/2 Ml Vial) 4 mg IVPUSH Q8H PRN PRN Reason: Nausea and Vomiting Potassium Chloride (Potassium Chloride Packet 20 Meq Packet) 40 meq PO BID [facility] Stop: 11/04/24 21:01 Last Admin: 11/04/24 09:28 Dose: 40 meq Documented By: FREDO Pravastatin Sodium (Pravastatin Sodium 40 Mg Tablet) 40 mg PO DAILY [facility] Last Admin: 11/04/24 07:28 Dose: 40 mg Documented By: FREDO Sodium Chloride (0.9 % Sodium Chloride Flush 3 Ml Syringe) 3 ml IVFLUSH QSHIFT [facility] Last Admin: 11/04/24 07:40 Dose: Not Given Documented By: FREDO Non-Admin Reason: IV Running Labs 11/04/24 06:11 11/04/24 06:11 Labs: Laboratory Results - last 24 hr 11/03/24 11/03/24 11/04/24 18:02 21:10 06:11 MCV 93.9 MCH 32.6 MCHC 34.7 RDW 12.5 Plt Count 169 MPV 9.9 Absolute Nucleated RBC 0.000 Nucleated RBC % (auto) 0.0 Anion Gap 10 L Estim Creat Clear Calc 58.4 Estimated GFR > 60 Random Glucose 88 Calcium 7.8 L D Total Bilirubin 0.3 AST 28 ALT 17 Alkaline Phosphatase 52 Total Protein 5.4 L Albumin 3.2 L Urine Color Yellow Urine Appearance Clear Urine pH 6.5 Ur Specific [place] 1.015 Urine Protein Negative Urine Glucose (UA) Negative Urine Ketones 40 Urine Blood Negative Urine Nitrite Positive H Ur Leukocyte Esterase Moderate (2+) H Urine RBC 0-2 Urine WBC 21-50 H Ur Squamous Epith Cells 3-5 Urine Bacteria 4+ Hyaline Casts 0-2 Respiratory Panel Bashir See Note Adenovirus (Rapid PCR) Not Detected B.pert (TEM-PCR) Not Detected B.parapertussis DNA PCR Not Detected C. pneumoniae DNA (PCR) Not Detected Coronavirus OC43 (PCR) Not Detected Coronavirus HKU1 (PCR) Not Detected Coronavirus 229E (PCR) Not Detected Coronavirus NL63 (PCR) Not Detected Human Metapneumovir PCR Not Detected Influenza A (RT-PCR) Not Detected Influenza B (RT-PCR) Not Detected M. pneumoniae (PCR) Not Detected Parainfluenza 1 (PCR) Not Detected Parainfluenza 2 (PCR) Not Detected Parainfluenza 3 (PCR) Not Detected Parainfluenza 4 (PCR) Not Detected RSV (PCR) Not Detected Entero/Rhino (PCR) Not Detected SARS-CoV-2 RNA (RT-PCR) Not Detected Assessment and Plan (1) Subdural hematoma: Status: Acute (2) Diarrhea: Status: Acute Plan This is an 79-year-old woman who presented to the ED with complaints of nausea, vomiting, diarrhea resulting in dizziness and fall found to have small subdural hematoma Small subdural hematoma ED provider discussed with trauma it at [facility], no need for transfer Repeat head CT completed - report pending no neurological deficits neuro checks No antiplatelet or anticoagulation for now neurology consult pending Diarrhea due to probable viral illness. symptoms resolved. RPP negative. no further diarrhea UTI UA + will start ceftriaxone follow urine culture results acute hyponatremia likely due to dehydration on admission resolved secondary polycythema H/H trended down likely due to IVF follows with hematology outpatient acute hypokalemia likely due to GI loss replace check magnesium Hyperlipidemia Continue statin pt evaluation pending for safe disposition DVT prophylaxis with pneumatic compression boots due to subdural hematoma Full code Quality Stroke Does the patient have a stroke diagnosis?: No VTE Prior VTE?: No VTE Risk Level:: Medical - moderate - high VTE Device Contraindication: N/A - Device Ordered VTE Drug Contraindication: Treatment Not Indicated
[2024-11-04 10:49] LABS: Magnesium 1.9 mg/dL (1.6-2.6)
--- NOTE | 2024-11-04 11:27 | PM.NEUROCN ---
History of Present Illness Data of Consult Service Date: 11/04/24 Primary Care Provider: Radha Melvin MD HPI Reason for consult: Subdural hemorrhage 79 years old woman who had a mechanical fall at home and was brought to hospital. She said that she was having diarrhea loss balance. She might have hit or head. Initial head CT suggested that she might have a small left-sided subdural hemorrhage and this consultation was requested. There was no sign of any seizure. She was not having any headache. Review of Systems Review of Systems: She suffered from diarrhea recently. [facility] Past Medical History Medical History History of COVID-19 Menopause Urinary incontinence in female Tubular adenoma of colon Osteopenia of both hips Obesity Osteoarthritis Hyperlipidemia Family History Family History Father Unknown family medical history Mother Unknown family medical history Daughter No problems noted. Son No problems noted. Surgical History Surgical History History of cataract surgery Social History Social History Household Members: Family Housing: Other Housing Other:: trailer Are you a primary rn palliative care to a significant other at home: No Do you presently have visiting nurse or other home services: Yes Alcohol intake: former Patient Tobacco Use Status: Never used Tobacco Smoked in Last 30 Days: No e-Cigarette/Vaping Use: Never Used Use of substances other than those prescribed or required for medical reasons: No Currently Displaying Signs/Symptoms of Drug Intoxication Withdrawal: No Advance Directives: No Advance Directives Information Provided: No Do you have a plan to hurt others: No Plan Recently lost weight without trying: No Nutrition Risks: No Nutritional Risk Patient : No service: No Current occupational status: retired Cognitive needs: No Hearing needs: No Vision needs: Yes Meds Allergies Allergy/AdvReac Type Severity Reaction Status Date / Time No Known Allergies Allergy Verified 11/03/24 08:05 Active Medications: Current Medications Acetaminophen (Acetaminophen 325 Mg Tablet) 650 mg PO Q6H PRN PRN Reason: Pain, Mild 1-3,fever,headache Last Admin: 11/04/24 07:35 Dose: 650 mg Calcium Carbonate (Calcium Carbonate 750 Mg Tab.Chew) 750 mg PO Q4H PRN PRN Reason: Heartburn Ceftriaxone Sodium (Ceftriaxone Sodium 1 Gm Vial) 1 gm IVPUSH Q24H [facility] Last Admin: 11/04/24 09:28 Dose: 1 gm Magnesium Hydroxide (Milk Of Magnesia 30 Ml Oral.Susp) 30 ml PO DAILY PRN PRN Reason: Constipation Melatonin (Melatonin 3 Mg Tablet) 6 mg PO BEDTIME PRN PRN Reason: Insomnia Ondansetron HCl (Ondansetron Hcl 4 Mg/2 Ml Vial) 4 mg IVPUSH Q8H PRN PRN Reason: Nausea and Vomiting Potassium Chloride (Potassium Chloride Packet 20 Meq Packet) 40 meq PO BID [facility] Stop: 11/04/24 21:01 Last Admin: 11/04/24 09:28 Dose: 40 meq Pravastatin Sodium (Pravastatin Sodium 40 Mg Tablet) 40 mg PO DAILY [facility] Last Admin: 11/04/24 07:28 Dose: 40 mg Sodium Chloride (0.9 % Sodium Chloride Flush 3 Ml Syringe) 3 ml IVFLUSH QSHIFT [facility] Last Admin: 11/04/24 07:40 Dose: Not Given Home Medications ?Medication ?Instructions ?Recorded ?Confirmed ?Last Taken ?Type antiarthritic combination no.2 900 900 mg PO BID 08/15/20 11/03/24 Unknown History mg tablet (glucosamine-chondroitin) calcium carbonate (Calcium 600) 600 mg PO DAILY 08/15/20 11/03/24 Unknown History cholecalciferol (vitamin D3) 25 25 mcg PO BID 08/15/20 11/03/24 Unknown History mcg (1,000 unit) capsule omega-3 fatty acids 1,000 mg 1,000 mg PO DAILY 08/15/20 11/03/24 Unknown History capsule (Fish Oil Concentrate) ascorbate calcium (vitamin C) 500 2 g PO DAILY 01/28/22 11/03/24 Unknown History mg tablet acetaminophen 325 mg tablet 650 mg PO Q4H PRN ARTHRITIS 11/03/24 11/03/24 Unknown History Physical Exam Vital Signs: Vital Signs: Last Vital Signs Temp 98.3 F 11/04/24 11:04 Pulse 63 11/04/24 11:04 Resp 18 11/04/24 11:04 BP 110/45 L 11/04/24 11:04 Pulse Ox 94 11/04/24 11:04 O2 Del Method Room Air 11/04/24 11:04 BMI result Body Mass Index 29.6 Neuro: Other: She is alert and awake with normal spontaneity of speech fluency comprehension and affect. There was no sign of distress. Face was symmetrical. Visual murrell are full. [id number] testing was normal. There was no focal weakness. Results Labs 11/04/24 06:11 11/04/24 06:11 Labs: Short CBC 11/04/24 Range/Units 06:11 WBC 6.0 (4.8-10.8) X10*3/uL Hgb 14.0 D (12.0-16.0) g/dl Hct 40.3 (37.0-47.0) % Plt Count 169 (160-400) X10*3/uL BMP 11/04/24 06:11 Sodium 143 Potassium 3.2 L Chloride 113 H Carbon Dioxide 23 BUN 9 Creatinine 0.72 Calcium 7.8 L D Liver Function 11/04/24 Range/Units 06:11 Total Bilirubin 0.3 (0.0-1.0) mg/dL AST 28 (5-31) U/L ALT 17 (0-31) U/L Alkaline Phosphatase 52 (39-117) U/L Albumin 3.2 L (3.5-5.0) g/dL Urine 11/03/24 Range/Units 21:10 Urine Color Yellow Urine Appearance Clear Urine pH 6.5 (5.0-9.0) Ur Specific [place] 1.015 (1.005-1.025) Urine Protein Negative (Neg-Trace) mg/dL Urine Glucose (UA) Negative (Negative) mg/dL Initial head CT revealed mild cerebral atrophy a possible left fall sign area subdural and frontal mid sagittal meningioma. Repeat CT today did not reveal left-sided subdural type of signal. Assessment and Plan (1) Subdural hematoma: Status: Acute Possible small left subdural hemorrhage on initial head CT without any symptoms. Other than stopping all type of blood thinners for couple of weeks, no further intervention is needed. (2) Meningioma: Status: Acute It is asymptomatic not requiring any further intervention. Procedures Date of Service Date of Service: 11/04/24
[2024-11-04] MEDS: 0.9 % Sodium Chloride Flush 3 ML SYRINGE IVFLUSH ×2 (16:43→20:20)
[2024-11-05 03:54] VITALS: BP 136/64; PULSE 64; RESP 18; TEMP 36.6; O2SAT 96
[2024-11-05 06:53] VITALS: BP 142/62; PULSE 62; RESP 18; TEMP 36.4; O2SAT 96
[2024-11-05 09:11] VITALS: BP 142/62; PULSE 62; O2SAT 96
[2024-11-05 09:14] LABS: Potassium 3.9 mmol/L (3.3-5.1)
[2024-11-05] MEDS: cefTRIAXone sodium 1 GM VIAL IVPUSH (09:36)
[2024-11-05] MEDS: Pravastatin Sodium 40 MG TABLET PO (09:36)
[2024-11-05] MEDS: 0.9 % Sodium Chloride Flush 3 ML SYRINGE IVFLUSH (09:36)
[2024-11-05] MEDS: Acetaminophen 325 MG TABLET 650 MG PO (09:36)
--- NOTE | 2024-11-05 10:37 | MHC.CM.PN ---
Per ROUNDS discussion, Patient may be ready for dc to home today with [facility] (if K improves and pending urine cultures); CM will follow.
--- NOTE | 2024-11-05 10:56 | PM.DS ---
DS: Providers Provider Date of Service: 11/05/24 Date of admission: 11/03/24 13:41 Date of discharge: 11/05/24 Primary care physician: Radha Melvin MD Consults: 11/04/24 08:33 Consult to Neurology Routine Consulting Provider: [facility] Reason for consultation: small subdural hematoma Has provider been notified: No Attending physician on discharge: Paresh Nava Discharging clinician: Cherry Anthony DS: Diagnosis Discharge Diagnosis (1) Subdural hematoma: Status: Acute (2) Meningioma: Status: Acute DS: Summary Hospital Course Hospital Course: From H&P on the day of admission 79-year-old woman presented to the ER after a fall at home. Reported around 04:00 o'clock this morning she got up to use the bathroom and she vomited. She went back to her room and a 2nd time had to get up and had an episode diarrhea. She did have difficulty getting up from the toilet but was able to get back to her room. She got up 3rd time and just when she got to the door of her bedroom she felt lightheaded and fell to the ground. She denied any loss of consciousness and was unsure if she hit her head. She did have a phone in her hand and arms were able to call her son who came and called EMS. Patient reported she had been in her usual state of health just prior to this. She does report a history of vertigo most of her life off and on. She denied any chest pain, shortness of breath, visual changes, headache, fever, chills. In the ER, head CT noted a very small subdural hematoma, ED provider spoke with trauma at [facility] who recommended keeping for observation, no need to transfer to tertiary care facility. All of her labs were within acceptable limits, vital signs stable, no noted orthostasis. In the ER she received 1 L of IV fluid. He was alert and oriented x3 and conversing normally. Plan will be to admit patient to monitor subdural hematoma. Small subdural hematoma ED provider discussed with trauma it at [facility], no need for transfer. repeat brain CT with gradual resolution of the hyperdense subdural hematoma; no midline shift, mass efffect or herniation. Seen by Neurology recommended avoiding all types of blood thinners for the next 2 weeks, no other further intervention required. Diarrhea Likely due to viral illness. Resolved UTI Urine culture pending at the time of discharge. No history of resistant bacteria. We be discharged with oral ceftin Time Attestation Discharge Coordination Time (in mins): 40 Quality: Safe Use of Opioids Does Pt have an Active Cancer Diagnosis on the Problem List?: No Quality: Stroke Does the patient have a stroke diagnosis?: No Physical Exam Vital Signs: Vital Signs: Last Vital Signs Temp 97.6 F 11/05/24 06:53 Pulse 62 11/05/24 09:11 Resp 18 11/05/24 06:53 BP 142/62 H 11/05/24 09:11 Pulse Ox 96 11/05/24 09:11 O2 Del Method Room Air 11/05/24 06:53 BMI result Body Mass Index 29.6 Const: General: cooperative, comfortable, no acute distress, alert and awake Nutritional Appearance: well nourished Orientation/consciousness: patient oriented x3 Resp: Effort & Inspection: normal respiratory effort and no respiratory distress Auscultation: clear to auscultation bilaterally Cardio: Rate: regular rate Rhythm: regular rhythm GI: Palpation (GI): Soft to palpation and nontender Neuro: General: patient oriented x3, moves all extremities and CN's II-XI intact bilaterally Cranial nerves: Yes CN's II-XII intact bilaterally Extrem: General: Yes normal to inspection DS: Data Data Completed and Pending Labs on day of discharge: Laboratory Results - last 24 hr 11/05/24 08:23 Potassium 3.9 D Preliminary micro results at discharge 11/03/24 22:16 Urine Culture - Preliminary Urine clean catch - Clean Catch Midstream Gram negative karl Discharge Plan Discharge Anticipated Discharge Date/Time: 11/05/24 11:16 Patient Disposition: Home Health Service Discharge Diagnosis: subdural hematoma diarrhea UTI Referrals: Radha Melvin MD [Primary Care Provider] - 1 Week Discharge Medications: New cefuroxime axetil 250 mg tablet 250 mg PO Q12H 3 Days Qty: 6 0RF Continued pravastatin 40 mg tablet 40 mg PO DAILY Qty: 90 1RF acetaminophen 325 mg Tablet 650 mg PO Q4H PRN (Reason: ARTHRITIS) omega-3 fatty acids [Fish Oil Concentrate] 1,000 mg capsule 1,000 mg PO DAILY glucosamine-chondroitin 900 mg tablet 900 mg PO BID calcium carbonate [Calcium 600] 600 mg calcium (1,500 mg) tablet 600 mg PO DAILY cholecalciferol (vitamin D3) 25 mcg (1,000 unit) capsule 25 mcg PO BID ascorbate calcium (vitamin C) 500 mg tablet 2 g PO DAILY Discharge Orders: Discharge Order (Routine); Ordered 11/05/24 Ordered By: Cherry Anthony Activity on Discharge: As tolerated Stand Alone Forms: Patient Portal Discharge page Print Language: Montenegrin Care Plan Goals: see below Health Concerns: diarrhea - resolved subdural hematoma UTI Plan of Treatment: subdural hematoma - resolving on repeat CT scan. no neurological deficits. do not take NSAIDs or any blood thinners for the next two weeks call to schedule follow up appointment with PCP For UTI complete course of antibiotics as prescribed-PCP we will need to follow-up urine culture Physical therapy has recommended home physical therapy services Assessment: see discharge summary
[2024-11-05 11:03] VITALS: BP 125/60; PULSE 64; RESP 18; TEMP 36.6; O2SAT 96
--- NOTE | 2024-11-05 11:16 | P.F2F_ITS ---
Service Date Service Date: 11/05/24 Encounter Date of encounter: 11/05/24 Encounter: needs home PT Reasons for Services Signs and symptoms assessed: gross deconditioning, transfer training, gait training, therapeutic activities Reason for physical therapy: home safety and mobility, therapeutic exercises and gait/transfer training Overseeing Care: Radha Melvin Homebound: Leaving the home is medically contraindicated at this time without the asist of a device and/or another person due th the listed conditions above and below. Reason homebound: weakness related to hospital stay Certification: Based on the above findings, I certify that this patient is confined to the home and needs intermittent nursing home care, physical therapy and/or speech therapy, or continues to need occupational therapy. The patient is under my care, and I have initiated the establishment of the plan of care. The patient will be followed by a physician who will periodically review the plan of care. Time Spent With Patient Time: Total time managing care of this patient today ____ minutes.
--- NOTE | 2024-11-05 11:21 | MHC.CM.PN ---
Patient has been medically cleared for dc to home today, with [facility]. A referral was made to [facility], who has been made aware of today's dc. Last IMM addressed on 11/04/2024.
== END 2024-11-05 13:53 | disposition home health service (06) | DRG 86 ==
LOC: HO.ED 11:02 → HO.EDOVER 13:48 → HO.IMC 16:36
PROVIDERS: Physician Assistant Medical; Admitting Provider Nurse Practitioner Acute Care; Emergency Provider Emergency Medicine; PCP Internal Medicine; Visit Provider Physician Assistant Medical
DX: S06.5X0A Traumatic subdural hemorrhage without loss of consciousness, initial encounter (principal); E87.1 Hypo-osmolality and hyponatremia; N39.0 Urinary tract infection, site not specified; E87.6 Hypokalemia; A08.4 Viral intestinal infection, unspecified; D75.1 Secondary polycythemia; E78.5 Hyperlipidemia, unspecified; E86.0 Dehydration; W19.XXXA Unspecified fall, initial encounter; Z79.899 Other long term (current) drug therapy
CPT/HCPCS: 36415; 70450; 71045; 72125; 80053; 81001; 82550; 83735; 84132; 84484; 85025; 85027; 87086; 87088; 87186; 87633; 93005; 97116; 97161; 99285; J0696

== ENCOUNTER → 2024-11-03 08:11 | Outpatient (BNV) | payer MEDICARE, SELFPAY | PROVIDERS: Admitting Provider Nurse Practitioner Acute Care; Emergency Provider Emergency Medicine; PCP Internal Medicine; Visit Provider Internal Medicine Cardiovascular Disease | DX: R94.31 Abnormal electrocardiogram [ECG] [EKG] (principal) | CPT/HCPCS: 93010 ==

== ENCOUNTER → 2024-11-03 08:23 | Outpatient (BNV) | payer MEDICARE, SELFPAY | PROVIDERS: Emergency Provider Emergency Medicine; PCP Internal Medicine; Visit Provider Radiology Vascular & Interventional Radiology | DX: R42 Dizziness and giddiness (principal) | CPT/HCPCS: 70450; 71045; 72125 ==

== ENCOUNTER 2024-11-03 13:41 | Outpatient (BNV) | payer MEDICARE, SELFPAY | END 2024-11-04 08:00 | PROVIDERS: Admitting Provider Nurse Practitioner Acute Care; Emergency Provider Emergency Medicine; PCP Internal Medicine; Visit Provider Radiology Diagnostic Radiology | DX: R42 Dizziness and giddiness (principal) | CPT/HCPCS: 99499 ==

== ENCOUNTER → 2024-11-03 13:41 | Outpatient (BNV) | payer MEDICARE, SELFPAY | PROVIDERS: Admitting Provider Nurse Practitioner Acute Care; Emergency Provider Emergency Medicine; PCP Internal Medicine; Visit Provider Psychiatry & Neurology Neurology | DX: S06.5XAA Traumatic subdural hemorrhage with loss of consciousness status unknown, initial encounter (principal); D32.9 Benign neoplasm of meninges, unspecified | CPT/HCPCS: 99222 ==

== ENCOUNTER → 2024-11-03 13:41 | Outpatient (BNV) | payer MEDICARE, SELFPAY | PROVIDERS: Admitting Provider Nurse Practitioner Acute Care; Emergency Provider Emergency Medicine; PCP Internal Medicine; Visit Provider Physician Assistant Medical | DX: S06.5XAA Traumatic subdural hemorrhage with loss of consciousness status unknown, initial encounter (principal); D32.9 Benign neoplasm of meninges, unspecified | CPT/HCPCS: 99239; G0180 ==

== ENCOUNTER 2024-12-07 09:45 | Outpatient (AMB) | payer MEDICARE, SELFPAY ==
--- NOTE | 2024-12-07 09:52 | MHC.PC.OV ---
Vital Signs 12/07/24 09:54 Height 5 ft 2 in Weight 165 lb BMI 30.2 BP 120/62 Blood Pressure Location Rt brachial Position Sitting Pulse 86 Pulse Source Pulse Oximeter Temp 97.8 F Temp Source Oral Pulse Oximetry (%) 97 Oxygen Delivery Method Room Air Intake Visit Reasons: Hospital follow up Intake Note: pt is here for [facility] f/up Stock Controller Required: No Accompanied by: Self / Same As Patient Allergies No Known Allergies Allergy (Verified 12/07/24 10:06) Medication List - Last Reconciled 12/07/24 by Radha Melvin MD acetaminophen 650 mg PO Q4H PRN antiarthritic combination no.2 (glucosamine-chondroitin) 900 mg PO BID ascorbate calcium (vitamin C) 2 grams PO DAILY calcium carbonate (Calcium 600) 600 mg PO DAILY cholecalciferol (vitamin D3) 25 mcg PO BID omega-3 fatty acids (Fish Oil Concentrate) 1,000 mg PO DAILY pravastatin 40 mg PO DAILY Tobacco use date assessed: 12/07/24 Fall risk assessment: No Falls in past year Last assessed Fall Risk: 12/07/24 Dental Screening Dental Screen Date: 12/07/24 Did you have a dental visit in the last 12 months?: Yes Did you have a dental problem in the last 6 months where you did not have access to dental care?: No Was dental information given to patient?: Patient has dentist HPI Hospital follow up HPI Details 79-year-old lady here today for hospital discharge follow-up. She was in her usual state of health prior to her admission 11/05/24, when she developed lightheadedness, and had 1 episode of diarrhea and vomiting, likely viral illness. She denied any loss of consciousness, chest pain, shortness of breath, visual changes, headache, fever, chills.. CT of head revealed a very small subdural hematoma, ED provider consulted with trauma at [facility] who recommended keeping for observation, no need to transfer to tertiary care facility. All of her labs were within acceptable limits, vital signs stable, no noted orthostasis. In the ER she received 1 L of IV fluid. He was alert and oriented x3 and conversing normally and was subsequently admitted for monitoring of subdural hematoma.. A repeat brain CT with gradual resolution of the hyperdense subdural hematoma; no midline shift, mass efffect or herniation. Seen by Neurology recommended avoiding all types of blood thinners for the next 2 weeks, no other further intervention required. She was noted to have a urinary tract infection during admission, with culture showing E coli, sensitive to ceftin given on her discharge. At present she states that she is almost back to her usual state of health. Appetite has not fully come back, and still tires easily. [facility] Medical History (Updated 12/12/24 @ 19:19 by Radha Melvin MD) History of subdural hematoma Meningioma History of COVID-19 Urinary incontinence in female Tubular adenoma of colon Osteopenia of both hips Obesity Osteoarthritis Hyperlipidemia Surgical History History of cataract surgery Family History Father Unknown family medical history Mother Unknown family medical history Daughter No problems noted. Son No problems noted. Social History Household Members: Family Housing: Other Housing Other:: trailer Are you a primary director of career services to a significant other at home: No Do you presently have visiting nurse or other home services: Yes Alcohol intake: former Patient Tobacco Use Status: Never used Tobacco e-Cigarette/Vaping Use: Never Used service: No Current occupational status: retired Cognitive needs: No Hearing needs: No Vision needs: Yes Questionnaire PHQ-9 Over the last 2 weeks, how often have you been bothered by any of the following problems? 1. Little interest or pleasure in doing things: not at all 2. Feeling down, depressed, or hopeless: not at all 3. Trouble falling or staying asleep, or sleeping too much: not at all 4. Feeling tired or having little energy: not at all 5. Poor appetite or overeating: not at all 6. Feeling bad about yourself - or that you are a failure or have let yourself or your family down: not at all 7. Trouble concentrating on things, such as reading the newspaper or watching television: not at all 8. Moving or speaking so slowly that other people could have noticed. Or the opposite - being so fidgety or restless that you have been moving around a lot more than usual: not at all 9. Thoughts that you would be better off or of hurting yourself in some way: not at all Total score: 0 Depression Screening Interpretation: Negative Depression Screening Done: Yes 70385 - PHQ-9 Billing: Yes Source: Developed by Drs. Dionicio Stiles, Kaylyn Dickerson, Colby Miller and colleagues, with an educational yoly from [employer]. Thrive Questionnaire Date Thrive assessed: 12/07/24 I am a: Patient What is your living situation today?: I have a steady place to live Within the past 12 months, did the food you bought not last and you didn't have the money to get more?: Never true Within the past 12 months, did you worry whether your food would run out before you got money to buy more?: Never true Do you have trouble paying for medicines?: No Do you have trouble getting transportation to medical appointments?: No Do you have trouble paying your heating and electricity bill?: No Do you have trouble taking care of your child, family member or friend?: No Do you have trouble with day-to-day activities such as bathing, preparing meals, shopping, managing finances, etc.?: No Are you currently unemployed and looking for a job?: No Are you interested in more education?: No Currently or been in a relationship where the following occur: No concerns reported THRIVE Score: 0 AUDIT C Alcohol Use Questionnaire (AUDIT-C) 1. How often do you have a drink containing alcohol?: Never 3. How often do you have six or more drinks on one occasion?: Never Total Score: 0 Score Reviewed/Action Taken: Yes LISE-7 AMB Questionnaire LISE-7 Date LISE - 7 assessed: 12/07/24 Feeling nervous, anxious, or on edge: 0 = Not at all Not being able to stop or control worryin = Not at all Worrying too much about different things: 0 = Not at all Trouble relaxin = Not at all Being so restless that it is hard to sit still: 0 = Not at all Becoming easily annoyed or irritable: 0 = Not at all Feeling afraid as if something awful might happen: 0 = Not at all Total LISE-7 score (0-4 normal; 5-9 mild; 10-14 moderate; 15-21 severe): 0 Source: Developed by Drs. Dionicio Stiles, Kaylyn Dickerson, Colby Miller and colleagues, with an educational yoly from [employer]. LISE-7 Assessment Billing LISE-7 Assessment Tool: LISE-7 Assessment 30078 Review of Systems Const Denies fever(s) and Denies headache(s) Eyes Denies change in vision ENT Denies dizziness, Denies headache(s), Denies nasal discharge, Reports disequilibrium (Occasional when walking or bending forward) and Denies sore throat Card Denies chest pain, Denies lightheadedness, Denies palpitations and Denies dyspnea Resp Denies chest congestion, Denies cough, Denies dyspnea and Denies wheezing GI Denies abdominal pain, Denies change in bowel habits, Denies dyspepsia and Denies heartburn Denies urinary frequency, Denies dysuria and Denies urinary urgency Musc Reports back pain (Occasional), Reports myalgias (Mild intermittent), Denies arthralgias, Denies muscle weakness and Reports stiffness Neuro Denies dizziness, Denies headache(s) and Reports disequilibrium (Occasional when walking or bending forward) Endo Denies polydipsia, Denies polyuria and Denies palpitations Aller/Immun Denies wheezing Physical exam (Primary Care) Vital Signs: Last Vital Signs Temp 97.8 F 12/07/24 09:54 Pulse 86 12/07/24 09:54 BP 120/62 12/07/24 09:54 Pulse Ox 97 12/07/24 09:54 Oxygen Delivery Method Room Air 12/07/24 09:54 BMI result Body Mass Index 30.2 Tobacco/Smoking Status: Tobacco use Status Tobacco use date assessed 12/07/24 12/07/24 09:57 Patient Tobacco Use Status Never used Tobacco 12/07/24 09:57 e-Cigarette/Vaping Use Never Used 12/07/24 09:57 PHQ-9: PHQ-9 Score PHQ-9: Total score 0 12/07/24 10:08 Depression Screening Interpretation: Negative Thrive Assessment: Date of Thrive Assessment Date Thrive assessed 12/07/24 12/07/24 09:57 Currently or been in a relationship where the following occur: No concerns reported Const Other: Alert all elderly female, ambulatory with assistance of a cane, no acute cardiorespiratory distress noted Eyes General: appearance normal, both eyes and all related structures Neck Neck: Yes full ROM, Yes no lymphadenopathy and Yes supple Resp Effort & Inspection: normal respiratory effort and able to speak in complete sentences Auscultation: clear to auscultation bilaterally Cardio Rate: regular rate Rhythm: regular rhythm Heart sounds: S1 normal heart sound present and S2 normal heart sound present GI Inspection: Yes obesity Palpation (GI): Soft to palpation, nontender, no guarding and no masses Auscultation: normal bowel sounds Neuro Gait exam (Neuro): Assisted gait required (Cane) Results Reviewed Results Reviewed: Name: Yun Stark Age/Sex: 79/F : 1945 Unit#: [id number] Attend Dr: Cherry Anthony Re11/03/24 Status: DIS IN Location: [facility] [id number] Disch: 11/05/24 SPEC : [id number] HERACLIO: 11/04/24 STATUS: COMP REQ : [id number] RECD: 11/04/[address]: Lindy Mclean NP COMP: 11/04/24 ENTERED: 11/04/[address]: Radha Melvin MD ORDERED: CBC No Diff Test Result Flag Reference WBC 6.0 4.8-10.8 X10*3/uL RBC 4.29 4.20-5.50 X10*6/uL HGB 14.0 # 12.0-16.0 g/dl HCT 40.3 37.0-47.0 % MCV 93.9 80.0-98.0 fL MCH 32.6 27.0-33.0 pg MCHC 34.7 31.0-35.0 g/dl RDW 12.5 11.0-16.0 % PLT 169 160-400 X10*3/uL MPV 9.9 9.4-12.3 fL NRBC Pct Auto 0.0 0.0-0.2 /100WBC NRBC Abs Auto 0.000 0.0-0.012 X10*3/uL Name: Yun Stark Age/Sex: 79/F : 1945 Unit#: [id number] Attend Dr: Cherry Anthony Re11/03/24 Status: DIS IN Location: [facility] [id number] Disch: 11/05/24 SPEC : [id number] HERACLIO: 11/04/24-610 STATUS: COMP REQ : [id number] RECD: 11/04/24-[address]: Lindy Mclean FUNERAL DIRECTOR/EMBALMER/OWNER COMP: 11/04/24 ENTERED: 11/04/24-[address]: Radha Melvin MD ORDERED: CMP, MG Test Result Flag Reference Sodium 143 135-145 mmol/L Potassium 3.2 L 3.3-5.1 mmol/L CL 113 H 96-108 mmol/L CO2 23 22-29 mmol/L Gap 10 L 12-20 BUN 9 9-16 mg/dL Creat 0.72 0.5-1.4 mg/dL Estimated CrCl 58.4 Provided height and weight: 157.48 cm, 73.4 kg. eGFR (calculated from the MDRD study equation) and eCrCl (calculated from the Cockcroft-Gault equation) are based on different parameters and may not yield comparable results. If eCrCl result is absurd, please check patient's height/weight. eGFR > 60 Chronic Kidney Disease: Estimated GFR < 60 mL/min/1.73m2 Severe Kidney Disease: Estimated GFR < 15 mL/min/1.73m2 Glucose, Random 88 60-115 mg/dL CA 7.8 # L 8.4-10.2 mg/dL Magnesium 1.9 1.6-2.6 mg/dL Total Bili 0.3 0.0-1.0 mg/dL AST (GOT) 28 5-31 U/L ALT (GPT) 17 0-31 U/L Protein, Total 5.4 L 6.5-8.0 g/dL Alb 3.2 L 3.5-5.0 g/dL Alk Phos 52 39-117 U/L Laboratory Tests 11/05/24 08:23 Potassium 3.9 D Coding Level of Care Code Est Pt Level 4 (57444) Complex EM visit Add On G2211 Diagnoses Pure hypercholesterolemia E78.00 Hyperlipidemia type: pure hypercholesterolemia Osteoarthritis M19.90 History of fall Z91.81 Additional Codes LISE-7 Assessment Billing - LISE-7 Assessment Tool: LISE-7 Assessment 59334 ([id number]) PHQ-9 - 57454 - PHQ-9 Billing: Yes ([id number]) Assessment & Plan Assessment & Plan (1) Hyperlipidemia: Code(s): E78.5 - Hyperlipidemia, unspecified Category: Medical Qualifiers: Hyperlipidemia type: pure hypercholesterolemia Qualified Code(s): E78.00 - Pure hypercholesterolemia, unspecified Plan: Fasting labs ordered, patient currently on pravastatin 40 mg at bedtime and [place] 3 fatty acid supplements daily (2) Osteoarthritis: Code(s): M19.90 - Unspecified osteoarthritis, unspecified site Category: Medical Plan: Continue with glucosamine chondroitin supplement, take Tylenol as needed for joint pain. (3) History of fall: Code(s): Z91.81 - History of falling Plan: Patient denies any dizziness, recent fasting labs showed normal CBC electrolytes liver enzymes. Recommended physical therapy for help with gait imbalance, patient declined Orders: Orders Aspartate Amino Transferase 03/03/25 E66.9 - Obesity, unspecified, E78.00 - Pure hypercholesterolemia, unspecified, Z78.0 - Asymptomatic menopausal state Alanine Aminotransferase 03/03/25 E66.9 - Obesity, unspecified, E78.00 - Pure hypercholesterolemia, unspecified, Z78.0 - Asymptomatic menopausal state Basic Metabolic Panel Fasting 03/03/25 E66.9 - Obesity, unspecified, E78.00 - Pure hypercholesterolemia, unspecified, Z78.0 - Asymptomatic menopausal state Lipid Panel 03/03/25 E66.9 - Obesity, unspecified, E78.00 - Pure hypercholesterolemia, unspecified, Z78.0 - Asymptomatic menopausal state Vitamin D 25-OH Total 03/03/25 E66.9 - Obesity, unspecified, E78.00 - Pure hypercholesterolemia, unspecified, Z78.0 - Asymptomatic menopausal state
[2024-12-07 09:54] VITALS: BP 120/62; PULSE 86; TEMP 36.6; O2SAT 97; BMI 30.2
== END 2024-12-07 10:55 | disposition home or self-care (01) ==
PROVIDERS: PCP Internal Medicine; Visit Provider Internal Medicine
DX: E78.00 Pure hypercholesterolemia, unspecified (principal); M19.90 Unspecified osteoarthritis, unspecified site; Z91.81 History of falling

== ENCOUNTER → 2024-12-07 09:45 | Outpatient (BNVA) | payer MEDICARE, SELFPAY | PROVIDERS: PCP Internal Medicine; Visit Provider Internal Medicine | DX: E78.00 Pure hypercholesterolemia, unspecified (principal); M19.90 Unspecified osteoarthritis, unspecified site; Z91.81 History of falling | CPT/HCPCS: 96127; 99212 ==

== ENCOUNTER 2025-03-09 06:14 | Outpatient (REF) | payer MEDICARE, SELFPAY ==
[2025-03-09 11:05] LABS: Alanine Aminotransferase 20 U/L (0-31); Anion Gap 11 (12-20); Aspartate Amino Transferase 25 U/L (5-31); Blood Urea Nitrogen 12 mg/dL (9-16); Calcium 9.2 mg/dL (8.4-10.2); Carbon Dioxide 28 mmol/L (22-29); Chloride 108 mmol/L (96-108); Cholesterol 176 mg/dL (<200); Estimated Glomerular Filt Rate > 60; Glucose Fasting 91 mg/dL (60-99); HDL Cholesterol 42 mg/dL (>40); LDL Cholesterol Calculated 109 mg/dL (<100); Potassium 3.6 mmol/L (3.3-5.1); Sodium 143 mmol/L (135-145); Triglycerides 128 mg/dL (<150)
[2025-03-09 11:10] LABS: Vitamin D 25-OH Total 58.4 ng/mL (>30)
== END 2025-03-09 06:15 | disposition home or self-care (01) ==
LOC: HO.HMGCLDS 06:14
PROVIDERS: PCP Internal Medicine; Visit Provider Internal Medicine
DX: Z78.0 Asymptomatic menopausal state (principal); E78.00 Pure hypercholesterolemia, unspecified; E66.9 Obesity, unspecified
CPT/HCPCS: 36415; 80048; 80061; 82306; 84450; 84460

== ENCOUNTER 2025-03-21 09:05 | Outpatient (AMB) | payer MEDICARE, SELFPAY ==
--- NOTE | 2025-03-21 10:14 | A.OFFVIS_ITS ---
Intake Vital Signs 03/21/25 10:16 Height 5 ft 2 in Weight 167 lb BMI 30.5 BP 124/84 Blood Pressure Location Lt brachial Position Sitting Respiration 16 Pulse 70 Pulse Source Pulse Oximeter Temp 97.9 F Temp Source Oral Pulse Oximetry (%) 97 Oxygen Delivery Method Room Air Intake Visit Reasons: G0439 Intake Note: Pt is here today for her AWV: last mammogram 12/25/23, bone density scan 12/11/21, colonoscopy 03/10/19 Allergies No Known Allergies Allergy (Verified 03/21/25 10:28) Medication List - Last Reconciled 03/21/25 by Radha Melvin MD acetaminophen 650 mg PO Q4H PRN antiarthritic combination no.2 (glucosamine-chondroitin) 900 mg PO BID ascorbate calcium (vitamin C) 2 grams PO DAILY calcium carbonate (Calcium 600) 600 mg PO DAILY cholecalciferol (vitamin D3) 25 mcg PO BID omega-3 fatty acids (Fish Oil Concentrate) 1,000 mg PO DAILY pravastatin 40 mg PO DAILY HPI G0439 HPI Details SWV ? 79 year old wi th osteopenia both hips, obesity, os teoarthritis, hype rlipidemia, polycy themia, presents for her ?subsequen t Annual Wellness Visit, she is up- to-date with her s creening mammogram done 12/25/2023 wi th normal findings , last bone densit y scan was done 12/11/2021 which showe d presence of oste openia in her left femoral neck and left femur normal in her lumbar spin e. She no longer gets cervical canc er screenings due to her age, last c olonoscopy was don e 03/10/2019 which s howed normal findi ngs, no further co lonoscopy as neede d per Dr. Murray . She is up-to-da te with her lipid screening, done 03/08/2024 with normal findings, last fa sting sugar was ch ecked 03/08/2024 whi ch was borderline high at 100 mg/dL. She is up-to -date with her COV ID vaccine but traore s not want to get anymore booster va ccine dose, up-to- date with Shingrix vaccination pneum onia vaccine and g ets yearly flu esha ts. ? Me dical / Social His tory Reviewed? Pas t Medical History ?Yes . ? [place] of Care / Care Team l ist updated ?Yes . ? Surgical/Hospitali zation History ?Y es . ? Current Medica tions (including OTC and supplement s) ?Yes . ? Family Hi story ?Yes . ? Tobac co Control form ? Yes . ? AUDIT-C (Alco hol use) form ?Ye s . ? Illicit drug us e in Social Histo ry ?Yes . ? Current d iagnosis of depre ssion? ?No ? Appropri ate PHQ2/PHQ9 com pleted ?Yes . ? Data entered by ?Medica l Oven Technician and r brandiwed by provide r ? Fall Risk ? Fall Hi story? Have you hand d any falls with injury in the past year? ?No . ? Have y ou had two or more falls in the pas t year? ?No . ? Fall Risk Assessment: ? No falls in the p ast year . ? HRA filled out b y the patient, re viewed by Provider and scanned. ?SWV ? Balance? Romberg ? Yes . ? Tandem walk ?Y es . ? Walk and Turn ? Yes . ? Rise from sit to stand ?Yes . ?Vision? Correct renato lens yes ? Vision screen ? Up-to-da te, sees [facility] at [facility] ?Heari ng? Whisper test ?pa ss . ?Writt en Plan?Completed . See Patient Doc uments.? SWV ? 79 year old with a history of polycythemia, urinary incontinence, osteopenia, obesity, osteoarthritis and hyperlipidemia, presents for her subsequent ?annual wellness visit. She had her last mammogram 12/29/2023 which showed normal findings, no longer getting another mammogram. She also had a screening colonoscopy done in 2019, no longer necessary, per Dr. Murray. Had a bone density scan done 12/11/2021 which showed presence of osteopenia in left femoral neck and femur, normal on lumbar spine, due for another bone density scan. No history of fractures She had a fasting lipid panel and fasting blood sugar done 03/09/2025 which showed normal results. She is up-to-date with her yearly flu shot, shingles vaccination, and pneumonia vaccines, has had COVID vaccines in the past but did not get the booster as she was admitted earlier this year for COVID infection. ? Medical / Social History Reviewed? Past Medical History ?Yes . ? [place] of Care / Care Team list updated ?Yes . ? Surgical/Hospitalization History ?Yes . ? Current Medications (including OTC and supplements) ?Yes . ? Family History ?Yes . ? Tobacco Control form ?Yes . ? AUDIT-C (Alcohol use) form ?Yes . ? Illicit drug use in Social History ?Yes . ? Current diagnosis of depression? ?No ? Appropriate PHQ2/PHQ9 completed ?Yes . ? Data entered by ?Veneer Supervisor and reviewed by provider ? Fall Risk ? Fall History? Have you had any falls with injury in the past year? ?No . ? Have you had two or more falls in the past year? ?No . ? Fall Risk Assessment: ?No falls in the past year . ? HRA filled out by the patient, reviewed by Provider and scanned. ?SWV ? Balance? Romberg ?negative . ? Tandem walk ?unable . ? Walk and Turn ?Yes . ? Rise from sit to stand ?Yes . ?Vision? Corrective lens ?Yes ? Vision screen ? Up-to-date, last seen by Dr. Ivis Le October 2024, now looking for another provider ?Hearing? Whisper test ?pass . ?Written Plan?Completed. See Patient Documents.? [facility] Medical History (Updated 03/21/25 @ 17:24 by Radha Melvin MD) History of meningioma History of adenomatous polyp of colon History of subdural hematoma History of COVID-19 Urinary incontinence in female Osteopenia of both hips Obesity Osteoarthritis Hyperlipidemia Surgical History History of cataract surgery Family History Father Unknown family medical history Mother Unknown family medical history Daughter No problems noted. Son No problems noted. Social History Household Members: Family Housing: Other Housing Other:: trailer Are you a primary healthcare recruiter to a significant other at home: No Do you presently have visiting nurse or other home services: Yes Alcohol intake: former Patient Tobacco Use Status: Never used Tobacco e-Cigarette/Vaping Use: Never Used service: No Current occupational status: retired Cognitive needs: No Hearing needs: No Vision needs: Yes Questionnaire Medicare Wellness Checkup What is your age?: 79 or older What gender do you identify with?: female During the past 4 weeks, how much have you been bothered by emotional problems such as feeling anxious, depressed, irritable, sad or downhearted, and blue?: n ot at all During the past 4 weeks, has your physical & emotional health limited your social activities with family, friends, neighbors, or groups?: not at all During the past 4 weeks, how much bodily pain have you generally had?: very mild pain During the past 4 weeks, was someone available to help you if you needed & wanted help?: yes, as much as I wanted During the past 4 weeks, what was the hardest physical activity you could do for at least 2 minutes?: moderate Can you get to places out of walking distance without help? (For eg., can you travel alone on buses, taxis or drive your car?): Yes Can you go shopping for groceries or clothes without someone's help?: Yes Can you prepare your own meals?: Yes Can you do your housework without help?: Yes Because of any health problems, do you need the help of another person with your personal care needs such as eating, bathing, dressing or getting around the house?: No Can you handle your own money without help?: Yes During the past 4 weeks, how would you rate your health in general?: very good During the past 4 weeks how have things been going for you?: good & bad parts about equal Are you having difficulties driving your car?: no Do you always fasten your seat belt when you are in a car?: yes, usually During past 4 weeks, have you been bothered by the following: never: Sexual problems?, Trouble eating well?, Teeth or denture problems? and Problems using the telephone? and sometimes: Falling or dizzy when standing up and Tiredness or fatigue? Have you fallen 2 or more times in the past year?: Yes Are you afraid of falling?: Yes Are you a smoker?: no During the past 4 weeks, how many drinks of wine, beer, or other alcoholic beverages did you have?: no alcohol at all Do you exercise for about 20 minutes 3 or more times a week?: no, I usually do not exercise this much Have you been given information to help with the following?: no: Hazards in your house that might hurt you? and no: Keeping track of your medications? How often do you have trouble taking medicines the way you have been told to take them?: I always take medicine as prescribed How confident are you that you can control & manage most of your health problems?: very confident What is your race?: White Mini Mental State Exam (MMSE) Orientation What is the (year) (season) (date) (day) (month)?: year (2024), season (Spring), date (03/21/25), day (Friday) and month (march) Where are we (state) (county) (town or city) (hospital) (floor)?: state ([place]), county ([place]), town or city ([place]) and hospital/clinic ([facility]) Score Score: 9 Activity of Daily Living Bathing - sponge bath, tub bath or shower: receives no assistance (gets in/out by self, if usual bathing means Dressing - getting clothes from closets & drawers, including inner/outer garments & fasteners.: gets clothes & gets completely dressed without help Toileting - going to the 'toilet room' for urine/bowel elimination & cleaning self/arranging clothes: goes to toilet room, cleans self, arranges clothes without help Transfer: moves in & out of bed and chair without help (may use support object) Continence: controls urination/bowel movements completely by self Feeding: feeds self without help Total Score: 0 Information obtained from: patient Using telephone: independent Traveling: independent Shopping: independent Preparing meals: independent Housework: independent Taking medicine: independent Managing money: independent PHQ-9 Over the last 2 weeks, how often have you been bothered by any of the following problems? 1. Little interest or pleasure in doing things: not at all 2. Feeling down, depressed, or hopeless: not at all 3. Trouble falling or staying asleep, or sleeping too much: not at all 4. Feeling tired or having little energy: not at all 5. Poor appetite or overeating: not at all 6. Feeling bad about yourself - or that you are a failure or have let yourself or your family down: not at all 7. Trouble concentrating on things, such as reading the newspaper or watching television: not at all 8. Moving or speaking so slowly that other people could have noticed. Or the opposite - being so fidgety or restless that you have been moving around a lot more than usual: not at all 9. Thoughts that you would be better off or of hurting yourself in some way: not at all Total score: 0 Depression Screening Interpretation: Negative Depression Screening Done: Yes 34290 - PHQ-9 Billing: Yes Source: Developed by Drs. Dionicio Stiles, Kaylyn Dickerson, Colby Miller and colleagues, with an educational yoly from [employer]. Physical Exam Vital Signs: Last Vital Signs Temp 97.9 F 03/21/25 10:16 Pulse 70 03/21/25 10:16 Resp 16 03/21/25 10:16 BP 124/84 03/21/25 10:16 Pulse Ox 97 03/21/25 10:16 Oxygen Delivery Method Room Air 03/21/25 10:16 BMI result Body Mass Index 30.5 Results Reviewed Results Reviewed: Name: Yun Stark Age/Sex: 79/F : 1945 Unit#: [id number] Attend Dr: Radha Melvin MD Re03/09/25 Status: DEP REF Location: [facility] Disch: SPEC : [id number] HERACLIO: 03/09/25 STATUS: COMP REQ : [id number] RECD: 03/09/25-[address]: Radha Melvin MD COMP: 03/09/25 ENTERED: 03/09/25 [facility] DR: ORDERED: Met Prof Fast, AST, ALT, Lipid Panel, Vitamin D 25-OH Test Result Flag Reference Sodium 143 135-145 mmol/L Potassium 3.6 3.3-5.1 mmol/L CL 108 96-108 mmol/L CO2 28 22-29 mmol/L Gap 11 L 12-20 BUN 12 9-16 mg/dL Creat 0.67 0.5-1.4 mg/dL eGFR > 60 Chronic Kidney Disease: Estimated GFR < 60 mL/min/1.73m2 Severe Kidney Disease: Estimated GFR < 15 mL/min/1.73m2 FBS 91 60-99 mg/dL CA 9.2 # 8.4-10.2 mg/dL AST (GOT) 25 5-31 U/L ALT (GPT) 20 0-31 U/L Triglyceride 128 <150 mg/dL Desirable Triglyceride: less than 150 mg/dL Borderline High Triglyceride 150-199 mg/dL High Triglyceride: 200-499 mg/dL Very High Triglyceride: greater than or equal to 5OO mg/dL Cholesterol 176 <200 mg/dL Desirable Cholesterol: less than 200 mg/dL Borderline High Cholesterol: 200-239 mg/dL High Cholesterol: greater than 239 mg/dL LDL Calculated 109 H <100 mg/dL Desirable LDL: less than 100 mg/dL Near Optimal/Above Optimal LDL: 110-129 mg/dL Borderline High LDL: 130-159 mg/dL High LDL: 160-189 mg/dL Very High LDL: greater than or equal to 190 mg/dL HDL 42 >40 mg/dL Desirable HDL: greater than 40 mg/dL Note: This HDL assay may give artificially low results in patients with liver disease. Vitamin D 25-OH 58.4 >30 ng/mL Health Based Reference Values* < 20 ng/mL Deficient 20-30 ng/mL Insufficient > 30 ng/mL Sufficient Assessment & Plan Assessment & Plan (1) Encounter for subsequent annual wellness visit (AWV) in Medicare patient: Code(s): Z00.00 - Encounter for general adult medical examination without abnormal findings Plan: Medical wellness checklist reviewed, discussed with patient and updated. She is up-to-date with all her vaccines no longer needs to get screening mammograms or colonoscopies, bone density scan ordered. Up-to-date with her MOLST and healthcare proxy form (2) Osteopenia of both hips: Code(s): M85.851 - Other specified disorders of bone density and structure, right thigh; M85.852 - Other specified disorders of bone density and structure, left thigh Plan: Ordered a repeat bone density scan. Reminded to engage in regular weight- bearing exercise, continue taking vitamin-D 3 supplements at least 2000 units daily and take adequate calcium from dietary sources (3) Polycythemia: Code(s): D75.1 - Secondary polycythemia Plan: Followed by hematology (4) Osteoarthritis: Code(s): M19.90 - Unspecified osteoarthritis, unspecified site Qualifiers: Osteoarthritis location: unspecified site Osteoarthritis type: primary Qualified Code(s): M19.91 - Primary osteoarthritis, unspecified site Plan: Takes acetaminophen 650 mg every 4 hours as needed for joint pain (5) Hyperlipidemia: Code(s): E78.5 - Hyperlipidemia, unspecified Qualifiers: Hyperlipidemia type: pure hypercholesterolemia Qualified Code(s): E78.00 - Pure hypercholesterolemia, unspecified Plan: Latest fasting lipids are within normal limits, continued on pravastatin 40 mg at bedtime. Orders: Orders XR DEXA axial skeleton Today M85.851 - Other specified disorders of bone density and structure, right thigh, M85.852 - Other specified disorders of bone density and structure, left thigh Quality Reporting (2019) Depression/Bipolar (159/160/161/177) PHQ-9: Total score: 0 Coding Level of Care Code Medicare Subsequent (G0439) Diagnoses Encounter for subsequent annual wellness visit (AWV) in Medicare patient Z00.00 Osteopenia of both hips M85.851; M85.852 Polycythemia D75.1 Primary osteoarthritis, unspecified site M19.91 Osteoarthritis location: unspecified site Osteoarthritis type: primary Pure hypercholesterolemia E78.00 Hyperlipidemia type: pure hypercholesterolemia CPT Codes Advance Care Planning - Advance Care Planning discussion: On file, no changes ([id number]) Advance Care Planning - Time spent: 1-15 minutes, on File ([id number]) Additional Codes PHQ-9 - 15601 - PHQ-9 Billing: Yes ([id number]) Advance Care Planning Advance Care Planning discussion: On file, no changes Date of discussion: 03/21/25 Who was present: patient Forms completed: Health Care Proxy and MOLST Time spent: 1-15 minutes, on File Actual minutes spent: 1
[2025-03-21 10:16] VITALS: BP 124/84; PULSE 70; RESP 16; TEMP 36.6; O2SAT 97; BMI 30.5
== END 2025-03-21 11:06 | disposition home or self-care (01) ==
LOC: HO.HMCC 09:06
PROVIDERS: PCP Internal Medicine; Visit Provider Internal Medicine
DX: Z00.00 Encounter for general adult medical examination without abnormal findings (principal); M85.851 Other specified disorders of bone density and structure, right thigh; M85.852 Other specified disorders of bone density and structure, left thigh; D75.1 Secondary polycythemia; M19.91 Primary osteoarthritis, unspecified site; E78.00 Pure hypercholesterolemia, unspecified

== ENCOUNTER → 2025-03-21 09:05 | Outpatient (BNVA) | payer MEDICARE, SELFPAY | PROVIDERS: PCP Internal Medicine; Visit Provider Internal Medicine | DX: Z00.00 Encounter for general adult medical examination without abnormal findings (principal); M85.851 Other specified disorders of bone density and structure, right thigh; M85.852 Other specified disorders of bone density and structure, left thigh; D75.1 Secondary polycythemia; M19.91 Primary osteoarthritis, unspecified site; E78.00 Pure hypercholesterolemia, unspecified | CPT/HCPCS: 96127 ==

== ENCOUNTER 2025-04-20 09:11 | Outpatient (REF) | payer MEDICARE, SELFPAY ==
--- NOTE | ~2025-04-20 | MM_ITS ---
EXAMINATION: BONE DENSITOMETRY CLINICAL INDICATION: Early menopause. COMPARISON: This is the patient's baseline examination. TECHNIQUE: Using a Digium dual-energy x-ray absorptiometry was performed of the lumbar spine and left hip. The images are of good technical quality. Summary results are attached. FINDINGS: AP SPINE L1-L4: Minimal left facet joint arthropathy L2-3 BMD 0.6 and 4 g/cm2, Z-score -0.6, T-score -2.5, normal appearance of bone mineral density. LEFT FEMUR, NECK: BMD 0.837 g/cm2, Z-score 0 0.837, T-score -1.4, slight diminished bone mineral density. IDENTIFIED RISK FACTORS: Early menopause. HISTORY OF FRACTURE: None listed. MEDICATIONS: Calcium, vitamin D and multivitamins. MM/XR DEXA axial skeleton IMPRESSION: 1. DIAGNOSIS: Osteoporosis based on the lowest T-score value of -2.5 in the left femur applying World Health Organization criteria. Compared to previous exam from 12/11/2021 with a T score left femoral neck measured -2.3 and and L1-L4 measured 1.8. Osteoporosis has progressed. 2. 10-YEAR FRACTURE RISK PREDICTION, FRAX: High risk for fracture. 3. Treatment Recommendations: NOF guidelines recommend consideration for treatment in postmenopausal women and men age 50 and older presenting with the following: -A hip or vertebral (clinical or morphometric) fracture. -T-score less than or equal to -2.5 at the femoral neck or spine after appropriate evaluation to exclude secondary causes. -Low bone mass at the hip or spine and a 10-year fracture probability by FRAX of greater than or equal to 3% for hip fracture or greater than or equal to 20% for major osteoporotic fracture based on the [place] adapted WHO algorithm. 4. All treatment decisions require clinical judgment and consideration of individual patient factors, including patient preferences, comorbidities, previous drug use, risk factors not captured in the FRAX model and possible under or overestimation of fracture risk by fractures. Additional medical evaluation for secondary causes of lobe bone mineral density may be appropriate. FUTURE SCAN RECOMMENDATION: People with diagnosed cases of osteoporosis or at high risk for fracture should have regular bone mineral density tests. For patients eligible for Medicare, routine testing is allowed once every 2 years. The testing frequency can be increased to one year for patients who have rapidly progressing disease, those who are receiving or discontinuing medical therapy to restore bone mass, or have additional risk factors. A follow-up exam is recommended April 2026 Electronically signed by: Bola Leon MD 04/21/2025 02:18 PM EDT
== END 2025-04-20 09:12 | disposition home or self-care (01) ==
LOC: HO.MAMMO 09:11
PROVIDERS: PCP Internal Medicine; Visit Provider Internal Medicine
DX: Z13.820 Encounter for screening for osteoporosis (principal); M85.851 Other specified disorders of bone density and structure, right thigh; M85.852 Other specified disorders of bone density and structure, left thigh
CPT/HCPCS: 77080

== ENCOUNTER → 2025-04-20 09:15 | Outpatient (BNV) | payer MEDICARE, SELFPAY | PROVIDERS: PCP Internal Medicine; Visit Provider Radiology Diagnostic Radiology | DX: E28.39 Other primary ovarian failure (principal) | CPT/HCPCS: 77080 ==

== ENCOUNTER 2025-06-08 13:32 | Outpatient (AMB) | payer MEDICARE, SELFPAY ==
--- NOTE | 2025-06-08 14:02 | A.OFFPC_ITS ---
Vital Signs 06/08/25 14:03 Height 5 ft 2 in Weight 174 lb BMI 31.8 BP 140/72 H Blood Pressure Location Lt brachial Position Sitting Respiration 16 Pulse 79 Pulse Source Pulse Oximeter Temp 98.2 F Temp Source Oral Pulse Oximetry (%) 97 Oxygen Delivery Method Room Air Intake Visit Reasons: Discuss osteoporosis Intake Note: Pt is here today to discuss osteoporosis Allergies No Known Allergies Allergy (Verified 06/08/25 14:19) Medication List - Last Reconciled 06/12/25 by Radha Melvin MD alendronate 70 mg PO QWEEK 3 months antiarthritic combination no.2 (glucosamine-chondroitin) 900 mg PO BID ascorbate calcium (vitamin C) 2 grams PO DAILY calcium carbonate (Calcium 600) 600 mg PO DAILY cholecalciferol (vitamin D3) 25 mcg PO BID ibuprofen 200 mg PO Q6H PRN omega-3 fatty acids (Fish Oil Concentrate) 1,000 mg PO DAILY pravastatin 40 mg PO DAILY Tobacco use date assessed: 06/08/25 Fall risk assessment: 1 Fall in past year Last assessed Fall Risk: 06/08/25 Dental Screening Dental Screen Date: 06/08/25 Did you have a dental visit in the last 12 months?: No Did you have a dental problem in the last 6 months where you did not have access to dental care?: No Was dental information given to patient?: Patient declined HPI Discuss osteoporosis HPI Details 79-year-old lady with history of hyperli pidemia, osteoarthritis, polycythemia, obesity and urinary incontinence, here today to discuss results of recent bone density scan. Showed presence of osteoporosis in her left femur, with a T-score of-2.5. Has no history of fractures. [facility] Medical History (Updated 06/12/25 @ 23:46 by Radha Melvin MD) Osteoporosis History of meningioma History of adenomatous polyp of colon History of subdural hematoma History of COVID-19 Urinary incontinence in female Osteopenia of both hips Obesity Osteoarthritis Hyperlipidemia Surgical History History of cataract surgery Family History Father Unknown family medical history Mother Unknown family medical history Daughter No problems noted. Son No problems noted. Social History Household Members: Family Housing: Other Housing Other:: trailer Are you a primary critical care specialist to a significant other at home: No Do you presently have visiting nurse or other home services: Yes Alcohol intake: former Patient Tobacco Use Status: Never used Tobacco e-Cigarette/Vaping Use: Never Used service: No Current occupational status: retired Cognitive needs: No Hearing needs: No Vision needs: Yes Questionnaire Thrive Questionnaire Date Thrive assessed: 06/08/25 I am a: Patient What is your living situation today?: I have a steady place to live Within the past 12 months, did the food you bought not last and you didn't have the money to get more?: Never true Within the past 12 months, did you worry whether your food would run out before you got money to buy more?: Never true Do you have trouble paying for medicines?: No Do you have trouble getting transportation to medical appointments?: No Do you have trouble paying your heating and electricity bill?: No Do you have trouble taking care of your child, family member or friend?: No Do you have trouble with day-to-day activities such as bathing, preparing meals, shopping, managing finances, etc.?: No Are you currently unemployed and looking for a job?: No Are you interested in more education?: No Please select the resources that you would like help with: None Currently or been in a relationship where the following occur: No concerns reported THRIVE Score: 0 AUDIT C Alcohol Use Questionnaire (AUDIT-C) 1. How often do you have a drink containing alcohol?: Never Total Score: 0 LISE-7 AMB Questionnaire LISE-7 Date LISE - 7 assessed: 12/07/24 Feeling nervous, anxious, or on edge: 0 = Not at all Not being able to stop or control worryin = Not at all Worrying too much about different things: 0 = Not at all Trouble relaxin = Not at all Being so restless that it is hard to sit still: 0 = Not at all Becoming easily annoyed or irritable: 0 = Not at all Feeling afraid as if something awful might happen: 0 = Not at all Total LISE-7 score (0-4 normal; 5-9 mild; 10-14 moderate; 15-21 severe): 0 Source: Developed by Drs. Dionicio Stiles, Kaylyn Dickerson, Colby Miller and colleagues, with an educational yoly from [employer]. Review of Systems Const All systems reviewed & are unremarkable except as noted in HPI and below Physical exam (Primary Care) Vital Signs: Last Vital Signs Temp 98.2 F 06/08/25 14:03 Pulse 79 06/08/25 14:03 Resp 16 06/08/25 14:03 BP 140/72 H 06/08/25 14:03 Pulse Ox 97 06/08/25 14:03 Oxygen Delivery Method Room Air 06/08/25 14:03 BMI result Body Mass Index 31.8 Tobacco/Smoking Status: Tobacco use Status Tobacco use date assessed 06/08/25 06/08/25 14:05 Patient Tobacco Use Status Never used Tobacco 06/08/25 14:02 e-Cigarette/Vaping Use Never Used 06/08/25 14:02 Thrive Assessment: Date of Thrive Assessment Date Thrive assessed 06/08/25 06/08/25 14:02 Currently or been in a relationship where the following occur: No concerns reported Const Other: Alert all elderly female, ambulatory with assistance of a cane, no acute cardiorespiratory distress noted Eyes General: appearance normal, both eyes and all related structures Neck Neck: Yes full ROM, Yes no lymphadenopathy and Yes supple Resp Effort & Inspection: normal respiratory effort and able to speak in complete sentences Auscultation: clear to auscultation bilaterally Cardio Rate: regular rate Rhythm: regular rhythm Heart sounds: S1 normal heart sound present and S2 normal heart sound present GI Inspection: Yes obesity Palpation (GI): Soft to palpation, nontender, no guarding and no masses Auscultation: normal bowel sounds Neuro Gait exam (Neuro): Assisted gait required (Cane) Coding Level of Care Code Est Pt Level 4 (34847) Diagnoses Age-related osteoporosis without current pathological fracture M81.0 Osteoporosis type: age-related Presence of current pathological fracture: without current pathological fracture Assessment & Plan Assessment & Plan (1) Osteoporosis: Code(s): M81.0 - Age-related osteoporosis without current pathological fracture Category: Medical Qualifiers: Osteoporosis type: age-related Presence of current pathological fracture: without current pathological fracture Qualified Code(s): M81.0 - Age- related osteoporosis without current pathological fracture Plan: Will start on alendronate. Pt advised to upon waking up in am, take medication 30 minutes before first food/drink/med. and do not lay down for 1 hour after taking medication.. Discussed potential side effects with pt including but not limited to dysphagia, esophygitis and gastritis. Pt advised to stop medication and call office if developes any adverse side effects including dysphagia, esophygeal pain or abdominal pain. Ca and Vit D supplements if inadequate dietary intake. Recommend Ca 500mg tid with meals. Advised to take Ca at separate times because the body does not absorb more than 800 mgof calcium at a time. Repeat DEXA 2 years. Orders: Orders Basic Metabolic Panel Fasting 10/03/25 E66.9 - Obesity, unspecified, E78.00 - Pure hypercholesterolemia, unspecified, M81.0 - Age-related osteoporosis without current pathological fracture Lipid Panel 10/03/25 E66.9 - Obesity, unspecified, E78.00 - Pure hypercholesterolemia, unspecified, M81.0 - Age-related osteoporosis without current pathological fracture Aspartate Amino Transferase 10/03/25 E66.9 - Obesity, unspecified, E78.00 - Pure hypercholesterolemia, unspecified, M81.0 - Age-related osteoporosis without current pathological fracture Alanine Aminotransferase 10/03/25 E66.9 - Obesity, unspecified, E78.00 - Pure hypercholesterolemia, unspecified, M81.0 - Age-related osteoporosis without current pathological fracture Vitamin D 25-OH Total 10/03/25 E66.9 - Obesity, unspecified, E78.00 - Pure hypercholesterolemia, unspecified, M81.0 - Age-related osteoporosis without current pathological fracture Medications: New alendronate 70 mg PO QWEEK 13 tabs 4RF 3 months M81.0 - Age-related osteoporosis without current pathological fracture
--- OUTSIDE RECORDS SUMMARY | 2025-06-08 14:02 | XMS_ITS | Patient Health Record ---
Author Organization [facility] Address [address] [place] [address] Care Team Providers Care Air Brush Artist Name Role Phone Olegario RASHID, Radha Primary Care Provider Hugo Briceno Jr Unavailable [phone] Reason For Referral No Information Medications Medication SIG (Take, Route, Frequency, Duration) Notes Start Date End Date Status ZyrTEC 10 MG 1 tablet Orally Once a day Active Glucosamine Chondr Complex 500-400 MG 1 capsule with a meal Orally Once a day Active Vitamin C 500 MG 1 tablet Orally Once a day Active Vitamin D 1000 UNIT 2 tablets Orally Onc e a day Active Arthritis Pain Relief 650 MG 2 tablets as needed Orally daily Active Pravastatin Sodium 40 MG 1 tablet Orally Once a day Active Colyte with Flavor Packs 240 GM As directed Orally Over the specified time. for 1 day(s) Active Vitamin E 400 UNIT 1 capsule Orally Onc e a day Active Fish Oil 1200 MG 1 capsule Orally Onc e a day Active Colyte with Flavor Packs 240 GM As directed Orally Over the specified time. for 1 day(s) Active Echinacea 100 MG 1 Orally QD A ctive Immunizations Vaccine Route Administration Date Status Comme nts Influenza Unknown 10/15/2017 Administered Social History Tobacco Use: Social History Observation Description Date Details (start date - stop date) Never Smoker NA - NA Tobacco Use/Smoking Question Answer Notes Patient is a nonsmoker Alcohol Screen Question Answer Notes Did you have a drink containing alcohol in the p ast year? 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) Active confirmed Problem 714010126 Long-term curren t use of high risk medication other than anticoagulant (Z79.899) Active confirmed Plan Of Treatment Future Test Test Name Order Date COLONOSCOPY 09/02/2018 Insurance Providers Payer Name Payer Address Payer Phone Subscriber Number Group Number Insured Name Patient Relationship to Insured Coverage Start Date Coverage End Date MEDICARE OF [place] [address] [place] [id number] [phone] [id number] ASHLEY SEPULVEDA Self - patient is the insured [facility] [employer] [address] [place] [address] [phone] [id number] ASHLEY SEPULVEDA Self - patient is the insured Medical (General) History Medical History History ICD Code arthritis elevated cholesterol environmental allergies Surgical History Surgery Date(Month/Year) cataract-lens implants-left eye 08/20/20 18
[2025-06-08 14:03] VITALS: BP 140/72; PULSE 79; RESP 16; TEMP 36.8; O2SAT 97; BMI 31.8
== END 2025-06-08 14:32 | disposition home or self-care (01) ==
LOC: HO.HMCC 13:33
PROVIDERS: PCP Internal Medicine; Visit Provider Internal Medicine
DX: M81.0 Age-related osteoporosis without current pathological fracture (principal)

== ENCOUNTER → 2025-06-08 13:32 | Outpatient (BNVA) | payer MEDICARE, SELFPAY | PROVIDERS: PCP Internal Medicine; Visit Provider Internal Medicine | DX: M81.0 Age-related osteoporosis without current pathological fracture (principal) | CPT/HCPCS: 99212 ==

== ENCOUNTER 2025-10-03 08:30 | Outpatient (REF) | payer MEDICARE, SELFPAY ==
--- OUTSIDE RECORDS SUMMARY | 2025-10-03 08:49 | XMS_ITS | Patient Health Record ---
Author Organization [facility] Address [address] [place] [address] Care Team Providers Care Sephora Operations Consultant Name Role Phone Olegario RASHID, Radha Primary Care Provider Hugo Briceno Jr Unavailable [phone] Reason For Referral No Information Medications Medication SIG (Take, Route, Frequency, Duration) Notes Start Date End Date Status ZyrTEC 10 MG Tablet 1 tablet Orally Once a day Active Glucosamine Chondr Complex 500-400 MG Capsule 1 capsule with a meal Orally Once a day Active Vitamin C 500 MG Tablet 1 tablet Orally Once a day Active Vitamin D 1000 UNIT Tablet 2 tablets Ora lly Once a day Active Arthritis Pain Relief 650 MG Tablet Extended Release 2 tablets as needed Orally daily Active Pravastatin Sodium 40 MG Tablet 1 tablet Orally Once a day Active Colyte with Flavor Packs 240 GM Solution Reconstituted As directed Orally Over the specified time.; Duration: 1 day(s) Active Vitamin E 400 UNIT Capsule 1 capsule Ora lly Once a day Active Fish Oil 1200 MG Capsule 1 capsule Orall y Once a day Active Colyte with Flavor Packs 240 GM Solution Reconstituted As directed Orally Over the specified time.; Duration: 1 day(s) Active Echinacea 100 MG Capsule 1 Orally QD Active Immunizations Vaccine Route Administration Date Status Comme nts Influenza Unknown 10/15/2017 Administered Social History Tobacco Use: Social History Observation Description Date Details (start date - stop date) Never Smoker NA - NA Social History Drugs/Alcohol: Social Info Question Answer Notes Alcohol Screen Did you have a drink containing alcohol in the past year? 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 (757280610) Type 2 diabetes mellitus with diabetic autonomic (poly)neuropathy (E11.43) Active confirmed Problem Long-term current use of drug therapy (863377673) Long-term current use of high risk medication other than anticoagulant (Z79.899) Active confirmed Plan Of Treatment Future Test Test Name Order Date COLONOSCOPY 09/02/2018 Insurance Providers Payer Name Payer Address Payer Phone Subscriber Number Group Number Insured Name Patient Relationship to Insured Coverage Start Date Coverage End Date MEDICARE OF [place] [address] [place] [id number] [phone] [id number] ASHLEY SEPULVEDA Self - patient is the insured [facility] SUPPLEMENTAL PLAN [address] [place] [address] [id number] ASHLEY SEPULVEDA Self - patient is the insured Medical (General) History Medical History History ICD Code arthritis elevated cholesterol environmental allergies Surgical History Surgery Date(Month/Year) cataract-lens implants-left eye 08/20/20 18
[2025-10-03 11:41] LABS: Alanine Aminotransferase 12 U/L (0-31); Anion Gap 11 (12-20); Aspartate Amino Transferase 23 U/L (5-31); Blood Urea Nitrogen 17 mg/dL (9-16); Calcium 8.9 mg/dL (8.4-10.2); Carbon Dioxide 28 mmol/L (22-29); Chloride 109 mmol/L (96-108); Cholesterol 188 mg/dL (<200); Estimated Glomerular Filt Rate > 60; HDL Cholesterol 45 mg/dL (>40); Potassium 3.4 mmol/L (3.3-5.1); Sodium 145 mmol/L (135-145); Triglycerides 149 mg/dL (<150)
== END 2025-10-03 08:31 | disposition home or self-care (01) ==
LOC: HO.HMGCLDS 08:30
PROVIDERS: PCP Internal Medicine; Visit Provider Internal Medicine
DX: M81.0 Age-related osteoporosis without current pathological fracture (principal); E66.9 Obesity, unspecified; E78.00 Pure hypercholesterolemia, unspecified
CPT/HCPCS: 36415; 80048; 80061; 82306; 84450; 84460

== ENCOUNTER 2025-10-11 07:59 | Outpatient (AMB) | payer MEDICARE, SELFPAY ==
[2025-10-11 08:09] VITALS: BP 136/70; PULSE 77; RESP 15; TEMP 36.8; O2SAT 95; BMI 32.4
--- NOTE | 2025-10-11 08:09 | MHC.PC.OV ---
Vital Signs 10/11/25 08:09 Height 5 ft 2 in Weight 177 lb BMI 32.4 BP 136/70 Blood Pressure Location Rt brachial Position Sitting Respiration 15 Pulse 77 Pulse Source Pulse Oximeter Temp 98.2 F Temp Source Oral Pulse Oximetry (%) 95 Oxygen Delivery Method Room Air Intake Visit Reasons: 4m follow up Intake Note: Pt is here today for her 4mo. f/u [employer] Rec[employer]iter Required: No Allergies No Known Allergies Allergy (Verified 10/12/25 01:02) Medication List - Last Reconciled 10/12/25 by Radha Melvin MD alendronate 70 mg PO QWEEK 3 months antiarthritic combination no.2 (glucosamine-chondroitin) 900 mg PO BID ascorbate calcium (vitamin C) 2 grams PO DAILY calcium carbonate (Calcium 600) 600 mg PO DAILY cholecalciferol (vitamin D3) 25 mcg PO BID ibuprofen 200 mg PO Q6H PRN mecobalamin (vitamin B12) mcg PO omega-3 fatty acids (Fish Oil Concentrate) 1,000 mg PO DAILY pravastatin 40 mg PO DAILY Tobacco use date assessed: 10/11/25 Last assessed Fall Risk: 10/11/25 Dental Screening Dental Screen Date: 10/11/25 [facility] Medical History (Updated 06/12/25 @ 23:46 by Radha Melvin MD) Osteoporosis History of meningioma History of adenomatous polyp of colon History of subdural hematoma History of COVID-19 Urinary incontinence in female Osteopenia of both hips Obesity Osteoarthritis Hyperlipidemia Surgical History History of cataract surgery Family History Father Unknown family medical history Mother Unknown family medical history Daughter No problems noted. Son No problems noted. Social History Household Members: Family Housing: Other Housing Other:: trailer Are you a primary neonatal intensive care unit nurse to a significant other at home: No Do you presently have visiting nurse or other home services: Yes Alcohol intake: former Patient Tobacco Use Status: Never used Tobacco e-Cigarette/Vaping Use: Never Used service: No Current occupational status: retired Cognitive needs: No Hearing needs: No Vision needs: Yes Questionnaire PHQ-9 Over the last 2 weeks, how often have you been bothered by any of the following problems? 1. Little interest or pleasure in doing things: not at all 2. Feeling down, depressed, or hopeless: not at all 3. Trouble falling or staying asleep, or sleeping too much: not at all 4. Feeling tired or having little energy: not at all 5. Poor appetite or overeating: not at all 6. Feeling bad about yourself - or that you are a failure or have let yourself or your family down: not at all 7. Trouble concentrating on things, such as reading the newspaper or watching television: not at all 8. Moving or speaking so slowly that other people could have noticed. Or the opposite - being so fidgety or restless that you have been moving around a lot more than usual: not at all 9. Thoughts that you would be better off or of hurting yourself in some way: not at all Total score: 0 Source: Developed by Drs. Dionicio Stiles, Kaylyn Dickerson, Colby Miller and colleagues, with an educational yoly from [employer]. Thrive Questionnaire Date Thrive assessed: 06/08/25 I am a: Patient What is your living situation today?: I have a steady place to live Within the past 12 months, did the food you bought not last and you didn't have the money to get more?: Never true Within the past 12 months, did you worry whether your food would run out before you got money to buy more?: Never true Do you have trouble paying for medicines?: No Do you have trouble getting transportation to medical appointments?: No Do you have trouble paying your heating and electricity bill?: No Do you have trouble taking care of your child, family member or friend?: No Do you have trouble with day-to-day activities such as bathing, preparing meals, shopping, managing finances, etc.?: No Are you currently unemployed and looking for a job?: No Are you interested in more education?: No Please select the resources that you would like help with: None Currently or been in a relationship where the following occur: No concerns reported THRIVE Score: 0 LISE-7 AMB Questionnaire LISE-7 Date LISE - 7 assessed: 12/07/24 Feeling nervous, anxious, or on edge: 0 = Not at all Not being able to stop or control worryin = Not at all Worrying too much about different things: 0 = Not at all Trouble relaxin = Not at all Being so restless that it is hard to sit still: 0 = Not at all Becoming easily annoyed or irritable: 0 = Not at all Feeling afraid as if something awful might happen: 0 = Not at all Total LISE-7 score (0-4 normal; 5-9 mild; 10-14 moderate; 15-21 severe): 0 Source: Developed by Drs. Dionicio Stiles, Kaylyn Dickerson, Colby Miller and colleagues, with an educational yoly from [employer]. Physical exam (Primary Care) Vital Signs: Last Vital Signs Temp 98.2 F 10/11/25 08:09 Pulse 77 10/11/25 08:09 Resp 15 10/11/25 08:09 BP 136/70 10/11/25 08:09 Pulse Ox 95 10/11/25 08:09 Oxygen Delivery Method Room Air 10/11/25 08:09 BMI result Body Mass Index 32.4 Tobacco/Smoking Status: Tobacco use Status Tobacco use date assessed 10/11/25 10/11/25 08:19 Patient Tobacco Use Status Never used Tobacco 10/11/25 08:10 e-Cigarette/Vaping Use Never Used 10/11/25 08:10 PHQ-9: PHQ-9 Score PHQ-9: Total score 0 10/11/25 09:05 Thrive Assessment: Date of Thrive Assessment Date Thrive assessed 06/08/25 10/11/25 08:10 Currently or been in a relationship where the following occur: No concerns reported Immunizations pneumoc 20-marcial conj-dip cr(PF) 0.5 mL IM syringe Performing Provider: Radha Melvin MD Performing Location: [facility] Administered by: Carly Mims CMA on 10/11/25 09:05 Dose Route Admin Location Dispensed Lot Number Expiration Date [facility] Commercial Crabber 0.5 mL IM Left Deltoid 0.5 mL [id number] 08/02/26 2695-1837-25 [employer] Total Dispensed Waste 0.5 mL 0 % VIS Given Date VIS Provided VIS Publication Date 10/11/25 Single Vaccine 25 Eligibility Eligibility Date Funding Source Not [facility] Eligible 10/11/25 Private Coding Diagnoses Pure hypercholesterolemia E78.00 Hyperlipidemia type: pure hypercholesterolemia Osteopenia of both hips M85.851; M85.852 Assessment & Plan Assessment & Plan (1) Hyperlipidemia: Code(s): E78.5 - Hyperlipidemia, unspecified Category: Medical Qualifiers: Hyperlipidemia type: pure hypercholesterolemia Qualified Code(s): E78.00 - Pure hypercholesterolemia, unspecified (2) Osteopenia of both hips: Code(s): M85.851 - Other specified disorders of bone density and structure, right thigh; M85.852 - Other specified disorders of bone density and structure, left thigh Category: Medical Orders: Orders Basic Metabolic Panel Fasting 03/03/26 E78.00 - Pure hypercholesterolemia, unspecified, M85.851 - Other specified disorders of bone density and structure, right thigh, M85.852 - Other specified disorders of bone density and structure, left thigh Pneumococcal 20 Immunization 10/11/25 Z23 - Encounter for immunization
--- OUTSIDE RECORDS SUMMARY | 2025-10-11 08:25 | XMS_ITS | Patient Health Record ---
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.43) Active confirmed Problem Long-term current use of drug therapy (927198797) Long-term current use of high risk medication other than anticoagulant (Z79.899) Active confirmed Plan Of Treatment Future Test Test Name Order Date COLONOSCOPY 09/02/2018 Insurance Providers Payer Name Payer Address Payer Phone Subscriber Number Group Number Insured Name Patient Relationship to Insured Coverage Start Date Coverage End Date MEDICARE OF [place] [address] [place] [id number] [phone] [id number] ASHLEY SEPULVEDA Self - patient is the insured [facility] SUPPLEMENTAL PLAN [address] [place] [address] [id number] ASHLEY SEPULVEDA Self - patient is the insured Medical (General) History Medical History History ICD Code arthritis elevated cholesterol environmental allergies Surgical History Surgery Date(Month/Year) cataract-lens implants-left eye 08/20/20 18
== END 2025-10-11 09:24 | disposition home or self-care (01) ==
LOC: HO.HMCC 08:00
PROVIDERS: PCP Internal Medicine; Visit Provider Internal Medicine
DX: Z23 Encounter for immunization (principal)

== ENCOUNTER → 2025-10-11 07:59 | Outpatient (BNVA) | payer MEDICARE, SELFPAY | PROVIDERS: PCP Internal Medicine; Visit Provider Internal Medicine | DX: Z71.2 Person consulting for explanation of examination or test findings (principal); E78.00 Pure hypercholesterolemia, unspecified; M85.851 Other specified disorders of bone density and structure, right thigh; M85.852 Other specified disorders of bone density and structure, left thigh; Z23 Encounter for immunization; Z13.31 Encounter for screening for depression | CPT/HCPCS: 90471; 90677; 96127; 99212 ==